=== PATIENT | male | born 1955 | race Caucasian/White ===

== ENCOUNTER → 2018-10-13 10:55 | Outpatient (CLI) | payer BC, SELFPAY ==
[2018-10-13 12:39] LABS: BUN Creatinine Ratio 18.9 (6-22); Blood Urea Nitrogen 17 mg/dL (9-20); Calcium 9.6 mg/dL (8.4-10.2); Carbon Dioxide 27 mmol/L (22-32); Chloride 103 mmol/L (98-107); Estimated Glomerular Filt Rate > 60.0 mL/min (>60); Glucose 99 mg/dL (80-110); HEMOLYSIS < 15 (0-50); Potassium 4.4 mmol/L (3.4-5.1); Sodium 140 mmol/L (137-145)
== END ==
DX: I10 Essential (primary) hypertension (principal)
CPT/HCPCS: 36415; 80048

== ENCOUNTER → 2019-09-13 11:31 | Outpatient (CLI) | payer BC, SELFPAY ==
--- NOTE | 2019-09-13 | DI.RAD.S_ITS ---
PROCEDURE: XR CHEST 2V INDICATIONS: Palpitations TECHNIQUE: 2 views of the chest were acquired. COMPARISON: None. FINDINGS: Surgical changes and devices: None. Lungs and pleura: Lungs are clear. No pleural effusions or pneumothorax. Mediastinum: Mediastinal contours are normal. Heart size is normal. Bones and chest wall: No suspicious bony abnormalities. Soft tissues appear unremarkable. IMPRESSION: No acute disease Dictated by: Quentin Lagos M.D. on 09/13/2019 at 11:59 Approved by: Quentin Lagos M.D. on 09/13/2019 at 12:00
== END ==
PROVIDERS: Referring Provider Student in an Organized Health Care Education/Training Program; Visit Provider Student in an Organized Health Care Education/Training Program
DX: R00.2 Palpitations (principal)
CPT/HCPCS: 71046

== ENCOUNTER → 2019-10-06 10:05 | Outpatient (CLI) | payer BC, SELFPAY ==
[2019-10-06 10:43] LABS: Add Manual Diff / Slide Review NO; Basophils Absolute Auto 100 /uL (0-100); Basophils Percent Auto 0.9 % (0-2); Eosinophils Absolute Auto 200 /uL (0-450); Eosinophils Percent Auto 2.3 % (2-4); Hematocrit 42.1 % (41-53); Hemoglobin 14.8 g/dL (13.5-17.5); Lymphocytes Absolute Auto 1500 /uL (1100-4500); Lymphocytes Percent Auto 20.9 % (25-40); Mean Corpuscular HGB Conc 35.3 % (30-36); Mean Corpuscular Hemoglobin 31.2 PG (26-34); Mean Corpuscular Volume 88.5 fL (80-100); Monocytes Absolute Auto 700 /uL (0-900); Monocytes Percent Auto 9.9 % (3-14); Neutrophils Absolute Auto 4800 /uL (1500-7000); Platelet Count 251 X10^3/uL (150-400); Red Blood Cell Count 4.75 X10^6/uL (4.5-5.9); Red Cell Distribution Width 12.8 % (11.6-14.8); White Blood Cell Count 7.3 X10^3/uL (4.5-11.0)
[2019-10-06 10:54] LABS: Alanine Aminotransferase 43 IU/L (<50); Albumin 4.3 g/dL (3.5-5.0); Albumin Globulin Ratio 1.4 (1.0-2.8); Alkaline Phosphatase 55 U/L (38-126); Aspartate Aminotransferase 34 IU/L (17-59); BUN Creatinine Ratio 18.4 (6-22); Bilirubin Total 0.5 mg/dL (0.2-1.3); Blood Urea Nitrogen 18 mg/dL (9-20); Calcium 10.1 mg/dL (8.4-10.2); Carbon Dioxide 29 mmol/L (22-32); Chloride 102 mmol/L (98-107); Estimated Glomerular Filt Rate > 60.0 mL/min (>60); Glucose 96 mg/dL (80-110); HEMOLYSIS < 15 (0-50); Potassium 4.3 mmol/L (3.4-5.1); Sodium 137 mmol/L (137-145); Total Protein 7.3 g/dL (6.3-8.2)
[2019-10-06 12:52] LABS: Campylobacter Not Detected (Not Detect); Clostridium difficile toxin AB Not Detected (Not Detect); Plesiomonsa shigelloides Not Detected (Not Detect); Salmonella Not Detected (Not Detect)
[2019-10-06 12:53] LABS: Cryptosporidium Not Detected (Not Detect); Cyclospora cayetanensis Not Detected (Not Detect); Entamoeba histolytica Not Detected (Not Detect); Enteroaggregative E.coli Not Detected (Not Detect); Enteropathogenic E.coli Not Detected (Not Detect); Enterotoxigenic E.coli It/st Not Detected (Not Detect); Giardia lamblia Not Detected (Not Detect); Shiga-like toxin-prod E.coli Not Detected (Not Detect); Shigella/Enteroinvasive E.coli Not Detected (Not Detect); Yersinia enterocolitica Not Detected (Not Detect)
[2019-10-06 12:54] LABS: Adenovirus F 40/41 Not Detected (Not Detect); Astrovirus Not Detected (Not Detect); Norovirus GI/GII Not Detected (Not Detect); Rotavirus A Not Detected (Not Detect); Sapovirus Not Detected (Not Detect)
[2019-10-06 12:56] LABS: Vibrio Detected (Not Detect)
[2019-10-06 12:58] LABS: Vibrio cholerae Not Detected (Not Detect)
== END ==
PROVIDERS: Referring Provider Nurse Practitioner; Visit Provider Nurse Practitioner
DX: R11.10 Vomiting, unspecified (principal); R19.7 Diarrhea, unspecified
CPT/HCPCS: 36415; 80053; 85025; 87507

== ENCOUNTER → 2020-02-18 08:16 | Outpatient (CLI) | payer MEDICARE, BC, SELFPAY ==
[2020-02-18 08:59] LABS: BUN Creatinine Ratio 17.2 (6-22); Blood Urea Nitrogen 16 mg/dL (9-20); Calcium 9.6 mg/dL (8.4-10.2); Carbon Dioxide 33 mmol/L (22-32); Chloride 102 mmol/L (98-107); Estimated Glomerular Filt Rate > 60.0 mL/min (>60); Glucose 101 mg/dL (80-110); HEMOLYSIS < 15 (0-50); Potassium 4.3 mmol/L (3.4-5.1); Sodium 137 mmol/L (137-145)
--- NOTE | 2020-02-18 09:15 | DI.CT.S_ITS ---
PROCEDURE: CT ABDOMEN PELVIS W CON INDICATIONS: Right lower quadrant pain TECHNIQUE: After the administration of oral and intravenous contrast, 5 mm thick sections acquired from the diaphragms to the symphysis. 5 mm thick coronal and sagittal reformats were performed. For radiation dose reduction, the following was used: automated exposure control, adjustment of mA and/or kV according to patient size. COMPARISON: None. FINDINGS: Image quality: Excellent. ABDOMEN: Lung bases: Lung bases are clear. Heart size is normal. Solid organs: Liver is normal in size and enhancement. Gallbladder is unremarkable . Biliary system is non-dilated. Pancreas enhances normally. Spleen is normal in size and enhancement. No adrenal nodules. Kidneys are normal in size and enhancement, without hydronephrosis. Peritoneum and bowel: Stomach, small bowel, and colon loops are normal in caliber and wall thickness. No free fluid or air. Normal appendix. The Nodes and vessels: No retroperitoneal or mesenteric adenopathy. Aorta and inferior vena cava are normal in caliber. Miscellaneous: No ventral hernias. PELVIS: Genitourinary: Enlarged prostate with mild diffuse bladder wall thickening. Miscellaneous: Small left inguinal hernia containing fat. No inguinal adenopathy. Bones: No suspicious bony lesions. No vertebral body compression fractures. Diffuse lumbar degenerative change with canal stenosis at L4-L5. IMPRESSION: 1. Enlarged prostate with mild bladder wall thickening. 2. Lumbar degenerative change with canal stenosis at L4-L5. 3. Normal appendix. 4. No evidence of acute abdominal process. Dictated by: Chase Graham M.D. on 02/18/2020 at 10:35 Approved by: Chase Graham M.D. on 02/18/2020 at 10:39
== END ==
PROVIDERS: PCP Student in an Organized Health Care Education/Training Program; Referring Provider Student in an Organized Health Care Education/Training Program; Visit Provider Student in an Organized Health Care Education/Training Program
DX: N40.0 Benign prostatic hyperplasia without lower urinary tract symptoms (principal); M51.36 Other intervertebral disc degeneration, lumbar region; R10.31 Right lower quadrant pain; Z79.899 Other long term (current) drug therapy
CPT/HCPCS: 36415; 74177; 80048; Q9967

== ENCOUNTER → 2020-03-20 08:04 | Outpatient (CLI) | payer MEDICARE, BC, SELFPAY ==
--- NOTE | 2020-03-20 | DI.US.S_ITS ---
PROCEDURE: US ABD AORTA ANEURYSM SCREEN INDICATIONS: SCREEN TECHNIQUE: Real time scanning was performed of the aorta and iliac arteries, with image documentation. COMPARISON: None. FINDINGS: Aorta: Proximal aortic diameter measures 1.8 cm. Mid-aorta measures 1.7 cm. Distal aortic diameter is 1.6 cm. Iliac arteries: Right common iliac artery measures 1.1 cm. Left common iliac artery measures 1.0 cm. IMPRESSION: No evidence of aortoiliac aneurysm. Dictated by: Melissa Fuchs M.D. on 03/20/2020 at 17:10 Approved by: Melissa Fuchs M.D. on 03/20/2020 at 17:11
== END ==
PROVIDERS: PCP Student in an Organized Health Care Education/Training Program; Referring Provider Student in an Organized Health Care Education/Training Program; Visit Provider Student in an Organized Health Care Education/Training Program
DX: Z13.6 Encounter for screening for cardiovascular disorders (principal); F17.210 Nicotine dependence, cigarettes, uncomplicated
CPT/HCPCS: 76706

== ENCOUNTER → 2020-08-20 08:37 | Outpatient (CLI) | payer MEDICARE, BC, SELFPAY ==
--- NOTE | 2020-08-20 | DI.MRI.S_ITS ---
PROCEDURE: MR LUMBAR SPINE WO CON INDICATIONS: Low back pain TECHNIQUE: Noncontrast sagittal T1 spin echo and T2 fast echo, sagittal STIR, axial T1 and T2 fast spin echo through the lumbar spine. In cases with scoliosis, additional coronal T2 fast spin echo may be performed. COMPARISON: [facility], CT, CT ABDOMEN PELVIS W CON, 02/18/2020, 9:26. FINDINGS: Image quality: Excellent. Alignment and Curvature: 5 lumbar type vertebral bodies are present by CT. There is loss of normal lumbar lordosis. There is mild, grade 1 retrolisthesis of L1 on L2, L2 on L3, L3 on L4, and L5 on S1. Mild grade 1 anterolisthesis of L4 on L5. Bone Marrow: Marrow is of normal overall signal. No acute vertebral body compression fractures. There is moderate reactive signal within the endplates adjacent to the L4-L5 and L5-S1 intervertebral discs. Mild reactive signal within the endplates adjacent to the T11-T12, T12-L1, L1-L2, L2-L3, and L3-L4 intervertebral discs. Spinal Cord: Conus medullaris terminates at the T12-L1 disc space level. Visualized cord demonstrates normal signal and size. Paraspinous Soft Tissues: No paravertebral masses. T12-L1: Mild disc height loss and desiccation. Mild diffuse disc bulge. Mild facet and ligamentum flavum hypertrophy. Mild epidural lipomatosis. Mild canal stenosis. Mild bilateral foraminal stenosis. L1-L2: Moderate disc height loss and desiccation. Moderate diffuse disc bulge with superimposed broad-based right posterolateral and far lateral protrusion. Mild facet and ligamentum flavum hypertrophy. Mild epidural lipomatosis. There is moderate to severe canal stenosis. Mild bilateral foraminal stenosis. Right lateral recess stenosis with posterior deviation and compression of the right L2 nerve root. L2-L3: Moderate disc height loss and desiccation. Mild diffuse disc bulge. Mild facet and ligamentum flavum hypertrophy. Mild epidural lipomatosis. Mild canal stenosis. Moderate subarticular foraminal stenosis bilaterally. L3-L4: Mild disc height loss and desiccation. Mild diffuse disc bulge. Mild facet and ligamentum flavum hypertrophy. Mild epidural lipomatosis. Moderate canal stenosis. Mild to moderate right and moderate left subarticular foraminal stenosis. L4-L5: Moderate disc height loss and desiccation. Moderate diffuse disc bulge. Moderate facet and ligamentum flavum hypertrophy. Severe canal stenosis. Moderate subarticular foraminal stenosis bilaterally. L5-S1: Severe disc height loss and desiccation. Mild diffuse disc bulge. Mild facet and ligamentum flavum hypertrophy. Mild canal stenosis. Moderate subarticular foraminal stenosis bilaterally. IMPRESSION: 1. Multilevel degenerative disc and facet disease, as well as ligamentum flavum hypertrophy and epidural lipomatosis. 2. Multilevel canal stenoses, worst at L4-L5, where there is severe canal stenosis. Moderate to severe canal stenosis at L1-L2. 3. Multilevel foraminal stenoses, worst at L2-L3, L3-L4, L4-L5, and L5-S1, where there are moderate foraminal stenoses as described above. 4. Right lateral recess stenosis at L1-L2 associated with right L2 nerve root compression. Recommend correlation with clinical symptoms to ascertain relevance of this finding. Dictated by: Melissa Fuchs M.D. on 08/20/2020 at 10:17 Approved by: Melissa Fuchs M.D. on 08/20/2020 at 10:22
== END ==
PROVIDERS: PCP Student in an Organized Health Care Education/Training Program; Referring Provider Orthopaedic Surgery; Visit Provider Orthopaedic Surgery
DX: M48.062 Spinal stenosis, lumbar region with neurogenic claudication (principal); M48.07 Spinal stenosis, lumbosacral region; M43.16 Spondylolisthesis, lumbar region; M51.26 Other intervertebral disc displacement, lumbar region; M51.36 Other intervertebral disc degeneration, lumbar region; M51.37 Other intervertebral disc degeneration, lumbosacral region; E88.2 Lipomatosis, not elsewhere classified
CPT/HCPCS: 72148

== ENCOUNTER 2021-03-18 09:00 | Outpatient (RCR) | payer MEDICARE, BC, SELFPAY ==
--- NOTE | 2021-02-04 15:29 | PT.OIE ---
Current Diagnoses Foot drop, right foot (02/04/21) Spondylolisthesis, lumbar region (02/04/21) Other spondylosis with radiculopathy, lumbar region (02/04/21) Spinal stenosis, lumbar region with neurogenic claudication (02/04/21) Other intervertebral disc displacement, lumbar region (02/04/21) Radiculopathy, lumbar region (02/04/21) Difficulty in walking, not elsewhere classified (02/04/21) Other specified postprocedural states (02/04/21) Visit Care Team Role Provider Type Summer Bloom MD Family Provider Physician Primary Care Provider Specialty: Family Practice Address: [address] [place] [address], [facility] [place], [address] Email: [email or web address] BRIGHT Payne Attending Provider Non-Staff Referring Provider Specialty: Medical Address: [address] [place] [address] [address], [place], [place], [facility] Email: Physical Therapy Initial Evaluation PT-OP-A Visit Information Start: 02/03/21 15:37 Freq: Status: Active Protocol: Document 02/04/21 09:45 AW (Rec: 02/04/21 10:14 AW [email or web address]) Out-Patient Physical Therapy Visit Information Visit Information Visit Type Initial Evaluation Visit Start Time 09:00 Visit Stop Time 09:45 Total Visit Minutes 45 Visit Number 1 Number of WET PROCESS MILLER HEAD Visits 0 Evaluation Information Evaluation Date 02/04/21 PT-OP-B Current Condition Start: 02/03/21 15:37 Freq: Status: Active Protocol: Document 02/04/21 09:45 AW (Rec: 02/03/21 15:44 AW [email or web address]) Current Condition History of Current Condition Onset Date October 2017 Current Complaints back pain s/p back surgery; chronic right foot drop History of Current Condition Pt has a lengthy history of orthopedic injuries. By his own report, he has always played hard participating in snow and water skiing, multiple sports. He has had right rotator cuff tear, right tibia/fibula fractures and nerve damage at age 30 resulting in foot drop, right osteotomy. MRI shows multiple chronic healed fractures of unknown age. In 2018, pt spent a long day painting a ceiling , stepped off a ladder and noticed numbness in his left leg. Pain evolved into burning sensation down both legs in sciatic distribution. He was treated with PT and had a few injections with minimal relief . He consulted a neurosurgeon at [facility] in fall 2018, had PT again and another injection (relief for only two days). He has also tried accupuncure and chiropractic. He used a self-guided exercise program from his insurance ([employer]) very faithfully for nearly a year. Ultimately, he elected surgery (L1-2 and L4-5 laminectomy). Since surgery Since surgery, sciatic nerve pain BLE is improved. He does note some residual left hip burning pain but nothing down the leg. He reports LBP (R more affected than left). Ice and ibuprofen are helpful. Pt historically slept on his stomach but turned into a back and side sleeper since his injury. He reports muscle spasm between shoulder blades and in hamstrings (left more) which interrupt his sleep. Prior Treatments and Tests 08/20/20 L/S MRI - 1. Multilevel degenerative disc and facet disease, as well as ligamentum flavum hypertrophy and epidural lipomatosis. 2. Multilevel canal stenoses, worst at L4-L5, where there is severe canal stenosis. Moderate to severe canal stenosis at L1-L2. 3. Multilevel foraminal stenoses, worst at L2-L3, L3- L4, L4-L5, and L5-S1, where there are moderate foraminal stenoses as described above. 4. Right lateral recess stenosis at L1-L2 associated with right L2 nerve root compression. Recommend correlation with clinical symptoms to ascertain relevance of this finding. 12/12/20 - L1-2 L4-5 decompression Treatment Goals Patient/Caregiver Goals Pt would like to return to skiing in May. He would like to be able to bend over/ turn to complete toilet hygiene with right hand. Current Functional Impairments (Reported) Functional Limitations- ADL's Difficulty turning to right side to complete toilet hygiene. Functional Limitations- Mobility/Gait Right foot drop (chronic). Limited standing tolerance. Functional Limitations- Work/School Difficulty completing tasks at home due to post-op restrictions which are now lifted. Functional Limitations- Recreation/ Pt did ski last year but is Hobbies hesitant about this season. He hopes to return to skiing in a few months. PT-OP-C Subjective Start: 02/03/21 15:37 Freq: Status: Active Protocol: Document 02/04/21 09:45 AW (Rec: 02/04/21 10:14 AW [email or web address]) OP-PT Subjective Patient Comments Patient Comments I know I've lost some strength since I couldn't do as much as I wanted to do after surgery. Patient Questionnaires Lower Extremity Functional Scale LEFS Score 44 LEFS Impairment 40 to 59% Impaired (Score 32- 47) Oswestry Low Back Index Oswestry Score 26 Oswestry Impairment 20 to 39% Impaired (Score 20- 39) OP-PT Pain Assessment Pain Assessment Grid Paper Pain Assessment Grid Completed Yes: scanned to EMR Home Pain Medication Use Pain Medications Used Yes Home Pain Medication Frequency Ibuprofen daily which pt reports is more helpful than Tylenol. PT-OP-D Balance Start: 02/03/21 15:37 Freq: Status: Active Protocol: Document 02/04/21 09:45 AW (Rec: 02/04/21 11:09 AW [email or web address]) Balance Tests Single Limb Standing Single Limb- Right 10 seconds unsteady, reaching for support Single Limb- Left 25 seconds steady PT-OP-E Functional Tests Start: 02/03/21 15:37 Freq: Status: Active Protocol: Document 02/04/21 09:45 AW (Rec: 02/04/21 11:10 AW [email or web address]) Functional Tests Single Leg Squat Test Comment LLE able to stand steadily from 18 mat; RLE unsteady from 22 mat PT-OP-H Neuro Start: 02/03/21 15:37 Freq: Status: Active Protocol: Document 02/04/21 09:45 AW (Rec: 02/04/21 12:49 AW [email or web address]) Sensation Evaluation Gross Sensation Gross Sensation Right LE Impaired Sensation Description Numbness Comments Summary Comments Pt reports chronic dull sensation right lateral and anterior shank and dorsal foot . Deep Tendon Reflex & Clonus Assessment Deep Tendon Reflex Bilateral Achilles Deep Tendon Reflex 1+ Diminished Bilateral Patellar Deep Tendon Reflex 1+ Diminished PT-OP-J Posture/Palpation/Skin Start: 02/03/21 15:37 Freq: Status: Active Protocol: Document 02/04/21 09:45 AW (Rec: 02/04/21 12:49 AW [email or web address]) Posture Evaluation Position Standing Head/C-Spine Posture Forward Head L-Spine Posture Flattened Weight Distribution Weight Shifted Left Palpation Assessment Location BLE Palpation Findings Soft Tissue Tightness Palpation Details Reduced HS length in supine 90 /90 - lacking ~30 degrees BLE. Internal rotation is severely limited bilaterally in supine . External rotation moderately limited. lumbar paraspinals Palpation Details Increased tone right lumbar paraspinals at levels of incisions. Skin Assessment Incisional Assessment Incision Appearance/Comments Healing incisions along L1-2 and L4-5. Slightly reduced scar mobility PT-OP-K Range of Motion Start: 02/03/21 15:37 Freq: Status: Active Protocol: Document 02/04/21 09:45 AW (Rec: 02/05/21 10:06 AW [email or web address]) Lumbar Spine Range of Motion Lumbar Spine Active Degrees Testing Position Standing Flexion 65 Extension 16 ROM Limitations Pain Comments Painful right rotation especially in sitting. Pt is able to laterally flex with fingertips to knee joint line bilaterally without c/o pain. Hip Goniometric Range of Motion Hip ROM Limitations Hip ROM Limitations Soft Tissue Tightness Comments Internal rotation in B hips is severely limited; external rotation moderately limited. In supine, remaining hip AROM and PROM WNL Knee Goniometric Range of Motion Knee ROM Limitations Knee ROM Limitations Soft Tissue Tightness Comments In supine 90/90, pt lacks 30 degrees knee extension bilaterally. Ankle and Foot Goniometric Range of Motion Ankle and Foot bilat Ankle/Foot ROM WFL No Comments Right ankle DF AROM limited ( less than neutral). Ankle and Foot ROM Limitations ROM Limitations Muscle Weakness Comments Pt reports nerve injury secondary to fracture >30 years ago which resulted in functional right foot drop. PT-OP-M Strength Start: 02/03/21 15:37 Freq: Status: Active Protocol: Document 02/04/21 09:45 AW (Rec: 02/05/21 10:06 AW [email or web address]) Hip Strength Hip Manual Muscle Testing bilat Flexion (L2) 4+ Good+ Extension (S1) 4 Good Abduction 4+ Good+ Knee Strength Knee Manual Muscle Testing bilat Flexion (S2) 5 Normal Extension (L3) 5 Normal Ankle/Foot Strength Ankle and Foot Manual Muscle Testing Right Dorsiflexion (L4) 3- Fair- Plantarflexion (S1) 5 Normal Left Dorsiflexion (L4) 5 Normal Plantarflexion (S1) 5 Normal Comments Pt performs 20 single leg heel raises right and left without evidence of imbalance. Toe Strength Toe Manual Muscle Testing Right Great Toe Flexion 4 Good Extension 4 Good Comments Left great toe 5/5 PT-OP-Q Treatments Start: 02/03/21 15:37 Freq: Status: Active Protocol: Document 02/04/21 09:45 AW (Rec: 02/05/21 10:06 AW [email or web address]) Therapeutic Exercises Supine Exercises piriformis stretch Supine Exercise Name piriformis stretch Side bilateral Comments opp foot planted HS stretch with strap Supine Exercise Name HS stretch with strap Side bilateral Equipment Used nylon strap Reps/Minutes 30 SH x 4 each side PT-OP-T Assessment and Plan Start: 02/03/21 15:37 Freq: Status: Active Protocol: Document 02/04/21 09:45 AW (Rec: 02/05/21 10:28 AW [email or web address]) Physical Therapy Assessment Rehab Potential Rehabilitation Potential Excellent Evaluation Complexity Number of Personal Factors/Comorbidities 1-2 Number of Body Systems Impaired 3 Clinical Presentation at Evaluation Evolving Impairments Impairments Balance,Functional Mobility, Gait,Pain,Posture,ROM, Sensation,Soft Tissue Mobility ,Strength Goals Four Impairment balance Short Term Goal (STG) Pt will rise on single leg ( right and left) from 19 high surface without evidence of imbalance. STG Duration 03/04/21 Jail Goal (LTG) Pt will rise on single leg ( right and left) from 18 high surface five times without evidence of imbalance as a measure of improved single leg strength and stability. LTG Duration 04/10/21 Three Impairment MANUEL score 26 Jail Goal (LTG) Pt will improve ODS score from 26 to 15 or less as a measure of improved daily function. LTG Duration 04/10/21 Two Impairment impaired sleep Jail Goal (LTG) Pt will sleep at least 7 uninterrupted hours for 5/7 nights to promote pain management. LTG Duration 04/10/21 One Impairment lacks appropriate HEP Short Term Goal (STG) Pt will be instructed in HEP to address soft tissue restrictions and lumbar mobility. STG Duration 03/04/21 Jail Goal (LTG) Pt will be independent with HEP to address BLE tissue length, strength, and balance for improved ability to self- manage pain LTG Duration 04/10/21 Assessment Summary Assessment Steffen is an active 65 yo man with history of multiple orthopedic injuries and chronic right foot drop related to a lower leg fracture >30 years ago. He recently elected L1-4 and L4-5 laminectomy to address bilteral lower extremity and low back pain. He has had good outcomes with regard to leg/ nerve pain. He presents to outpatient physical therapy with general deconditioning secondary to activity restrictions following surgery , soft tissue tightness affecting hip mobility, and impaired lower extremity stability. He is expected to benefit from skilled physical therapy to address these impairments for return to regular activity to include skiing and fishing. Physical Therapy Plan Frequency and Duration Frequency of Treatment 1-2x/week Duration of Treatment 2 months Plan of Care Start Date 02/04/21 Plan of Care End Date 04/10/21 Therapeutic Interventions Therapeutic Interventions Aquatic Therapy,Balance Training,Gait Training,Home Exercise Program,Manual Therapy,Neuromuscular Re- education,Patient/Caregiver Education,Self-Care/Home Management,Sensory Integration ,Soft Tissue Mobilization, Therapeutic Activities, Therapeutic Exercises Modalities Cold Pack/Ice Massage,Hot Packs Next Visit Focus/Plan Next Note Type Treatment Note Next Visit Plan continue hip mobility exercises, initiate standing hip strength, STM's as tolerated
--- NOTE | 2021-02-04 15:30 | PT.OPPOC ---
Physical, Occupational & Speech Therapy At [facility] Current Diagnoses Foot drop, right foot (02/04/21) Spondylolisthesis, lumbar region (02/04/21) Other spondylosis with radiculopathy, lumbar region (02/04/21) Spinal stenosis, lumbar region with neurogenic claudication (02/04/21) Other intervertebral disc displacement, lumbar region (02/04/21) Radiculopathy, lumbar region (02/04/21) Difficulty in walking, not elsewhere classified (02/04/21) Other specified postprocedural states (02/04/21) Visit Care Team Role Provider Type Summer Bloom MD Family Provider Physician Primary Care Provider Specialty: Family Practice Address: [address] [place] [address], [facility] Email: [email or web address] BRIGHT Payne Attending Provider Non-Staff Referring Provider Specialty: Medical Address: [address] [place] [address] [address] Floor, [place], [place], [facility] Email: Plan Of Care PT-OP-T Assessment and Plan Start: 02/03/21 15:37 Freq: Status: Active Protocol: Document 02/04/21 09:45 AW (Rec: 02/05/21 10:28 AW [email or web address]) Physical Therapy Assessment Rehab Potential Rehabilitation Potential Excellent Evaluation Complexity Number of Personal Factors/Comorbidities 1-2 Number of Body Systems Impaired 3 Clinical Presentation at Evaluation Evolving Impairments Impairments Balance,Functional Mobility, Gait,Pain,Posture,ROM, Sensation,Soft Tissue Mobility ,Strength Goals Four Impairment balance Short Term Goal (STG) Pt will rise on single leg ( right and left) from 19 high surface without evidence of imbalance. STG Duration 03/04/21 Group Home Goal (LTG) Pt will rise on single leg ( right and left) from 18 high surface five times without evidence of imbalance as a measure of improved single leg strength and stability. LTG Duration 04/10/21 Three Impairment MANUEL score 26 Group Home Goal (LTG) Pt will improve ODS score from 26 to 15 or less as a measure of improved daily function. LTG Duration 04/10/21 Two Impairment impaired sleep Group Home Goal (LTG) Pt will sleep at least 7 uninterrupted hours for 5/7 nights to promote pain management. LTG Duration 04/10/21 One Impairment lacks appropriate HEP Short Term Goal (STG) Pt will be instructed in HEP to address soft tissue restrictions and lumbar mobility. STG Duration 03/04/21 Group Home Goal (LTG) Pt will be independent with HEP to address BLE tissue length, strength, and balance for improved ability to self- manage pain LTG Duration 04/10/21 Assessment Summary Assessment Steffen is an active 65 yo man with history of multiple orthopedic injuries and chronic right foot drop related to a lower leg fracture >30 years ago. He recently elected L1-4 and L4-5 laminectomy to address bilteral lower extremity and low back pain. He has had good outcomes with regard to leg/ nerve pain. He presents to outpatient physical therapy with general deconditioning secondary to activity restrictions following surgery , soft tissue tightness affecting hip mobility, and impaired lower extremity stability. He is expected to benefit from skilled physical therapy to address these impairments for return to regular activity to include skiing and fishing. Physical Therapy Plan Frequency and Duration Frequency of Treatment 1-2x/week Duration of Treatment 2 months Plan of Care Start Date 02/04/21 Plan of Care End Date 04/10/21 Therapeutic Interventions Therapeutic Interventions Aquatic Therapy,Balance Training,Gait Training,Home Exercise Program,Manual Therapy,Neuromuscular Re- education,Patient/Caregiver Education,Self-Care/Home Management,Sensory Integration ,Soft Tissue Mobilization, Therapeutic Activities, Therapeutic Exercises Modalities Cold Pack/Ice Massage,Hot Packs Next Visit Focus/Plan Next Note Type Treatment Note Next Visit Plan continue hip mobility exercises, initiate standing hip strength, STM's as tolerated Plan of Care Dates Plan of Care Start Date 02/04/21 Plan of Care End Date 04/10/21 Electronically Signed by: Suad Hilario, PT 02/05/21 [id number] Please Sign and Return: I have reviewed this Plan of Care and certify that the skilled therapy services above are required to meet the patient?s needs. Physician Signature Date Printed Name and Credentials Clinical Instructor Signature Printed Name and Credentials
--- NOTE | 2021-02-09 17:03 | PT.OTN ---
Current Diagnoses Foot drop, right foot (02/09/21) Spondylolisthesis, lumbar region (02/09/21) Other spondylosis with radiculopathy, lumbar region (02/09/21) Spinal stenosis, lumbar region with neurogenic claudication (02/09/21) Other intervertebral disc displacement, lumbar region (02/09/21) Radiculopathy, lumbar region (02/09/21) Difficulty in walking, not elsewhere classified (02/09/21) Other specified postprocedural states (02/09/21) Physical Therapy Treatment Note PT-OP-A Visit Information Start: 02/03/21 15:37 Freq: Status: Active Protocol: Document 02/09/21 16:53 SAK (Rec: 02/09/21 17:02 [facility] [id number]) Out-Patient Physical Therapy Visit Information Visit Information Visit Type Treatment Note Visit Start Time 11:00 Visit Stop Time 11:45 Total Visit Minutes 45 Visit Number 2 Number of STOCK FEEDER Visits 0 PT-OP-B Current Condition Start: 02/03/21 15:37 Freq: Status: Active Protocol: Document 02/09/21 16:53 SAK (Rec: 02/09/21 17:02 [facility] [id number]) Current Condition History of Current Condition Onset Date October 2017 Current Complaints back pain s/p back surgery; chronic right foot drop History of Current Condition Pt has a lengthy history of orthopedic injuries. By his own report, he has always played hard participating in snow and water skiing, multiple sports. He has had right rotator cuff tear, right tibia/fibula fractures and nerve damage at age 30 resulting in foot drop, right osteotomy. MRI shows multiple chronic healed fractures of unknown age. In 2018, pt spent a long day painting a ceiling , stepped off a ladder and noticed numbness in his left leg. Pain evolved into burning sensation down both legs in sciatic distribution. He was treated with PT and had a few injections with minimal relief . He consulted a neurosurgeon at [facility] in fall 2018, had PT again and another injection (relief for only two days). He has also tried accupuncure and chiropractic. He used a self-guided exercise program from his insurance ([employer] from [facility]) very faithfully for nearly a year. Ultimately, he elected surgery (L1-2 and L4-5 laminectomy). Since surgery Since surgery, sciatic nerve pain BLE is improved. He does note some residual left hip burning pain but nothing down the leg. He reports LBP (R more affected than left). Ice and ibuprofen are helpful. Pt historically slept on his stomach but turned into a back and side sleeper since his injury. He reports muscle spasm between shoulder blades and in hamstrings (left more) which interrupt his sleep. Prior Treatments and Tests 08/20/20 L/S MRI - 1. Multilevel degenerative disc and facet disease, as well as ligamentum flavum hypertrophy and epidural lipomatosis. 2. Multilevel canal stenoses, worst at L4-L5, where there is severe canal stenosis. Moderate to severe canal stenosis at L1-L2. 3. Multilevel foraminal stenoses, worst at L2-L3, L3- L4, L4-L5, and L5-S1, where there are moderate foraminal stenoses as described above. 4. Right lateral recess stenosis at L1-L2 associated with right L2 nerve root compression. Recommend correlation with clinical symptoms to ascertain relevance of this finding. 12/12/20 - L1-2 L4-5 decompression Treatment Goals Patient/Caregiver Goals Patient hoping aquatic therapy can help him recover and return to many of his prior activities. Reports besides PT exercises his doctor gave him a list of exercises to do at home including 1 min regular plank which is very hard for him to do. PT-OP-C Subjective Start: 02/03/21 15:37 Freq: Status: Active Protocol: Document 02/09/21 16:53 SAK (Rec: 02/09/21 17:03 SAK [id number]) OP-PT Subjective Patient Comments Patient Comments Hopeful that aquatic therapy can be helpful in his recovery to help him return to his prior activities. PT-OP-D Balance Start: 02/03/21 15:37 Freq: Status: Active Protocol: Document 02/04/21 09:45 AW (Rec: 02/04/21 11:09 AW [email or web address]) Balance Tests Single Limb Standing Single Limb- Right 10 seconds unsteady, reaching for support Single Limb- Left 25 seconds steady PT-OP-E Functional Tests Start: 02/03/21 15:37 Freq: Status: Active Protocol: Document 02/04/21 09:45 AW (Rec: 02/04/21 11:10 AW [email or web address]) Functional Tests Single Leg Squat Test Comment LLE able to stand steadily from 18 mat; RLE unsteady from 22 mat PT-OP-H Neuro Start: 02/03/21 15:37 Freq: Status: Active Protocol: Document 02/04/21 09:45 AW (Rec: 02/04/21 12:49 AW [email or web address]) Sensation Evaluation Gross Sensation Gross Sensation Right LE Impaired Sensation Description Numbness Comments Summary Comments Pt reports chronic dull sensation right lateral and anterior shank and dorsal foot . Deep Tendon Reflex & Clonus Assessment Deep Tendon Reflex Bilateral Achilles Deep Tendon Reflex 1+ Diminished Bilateral Patellar Deep Tendon Reflex 1+ Diminished PT-OP-J Posture/Palpation/Skin Start: 02/03/21 15:37 Freq: Status: Active Protocol: Document 02/04/21 09:45 AW (Rec: 02/04/21 12:49 AW [email or web address]) Posture Evaluation Position Standing Head/C-Spine Posture Forward Head L-Spine Posture Flattened Weight Distribution Weight Shifted Left Palpation Assessment Location BLE Palpation Findings Soft Tissue Tightness Palpation Details Reduced HS length in supine 90 /90 - lacking ~30 degrees BLE. Internal rotation is severely limited bilaterally in supine . External rotation moderately limited. lumbar paraspinals Palpation Details Increased tone right lumbar paraspinals at levels of incisions. Skin Assessment Incisional Assessment Incision Appearance/Comments Healing incisions along L1-2 and L4-5. Slightly reduced scar mobility PT-OP-K Range of Motion Start: 02/03/21 15:37 Freq: Status: Active Protocol: Document 02/04/21 09:45 AW (Rec: 02/05/21 10:06 AW [email or web address]) Lumbar Spine Range of Motion Lumbar Spine Active Degrees Testing Position Standing Flexion 65 Extension 16 ROM Limitations Pain Comments Painful right rotation especially in sitting. Pt is able to laterally flex with fingertips to knee joint line bilaterally without c/o pain. Hip Goniometric Range of Motion Hip ROM Limitations Hip ROM Limitations Soft Tissue Tightness Comments Internal rotation in B hips is severely limited; external rotation moderately limited. In supine, remaining hip AROM and PROM WNL Knee Goniometric Range of Motion Knee ROM Limitations Knee ROM Limitations Soft Tissue Tightness Comments In supine 90/90, pt lacks 30 degrees knee extension bilaterally. Ankle and Foot Goniometric Range of Motion Ankle and Foot bilat Ankle/Foot ROM WFL No Comments Right ankle DF AROM limited ( less than neutral). Ankle and Foot ROM Limitations ROM Limitations Muscle Weakness Comments Pt reports nerve injury secondary to fracture >30 years ago which resulted in functional right foot drop. PT-OP-M Strength Start: 02/03/21 15:37 Freq: Status: Active Protocol: Document 02/04/21 09:45 AW (Rec: 02/05/21 10:06 AW [email or web address]) Hip Strength Hip Manual Muscle Testing bilat Flexion (L2) 4+ Good+ Extension (S1) 4 Good Abduction 4+ Good+ Knee Strength Knee Manual Muscle Testing bilat Flexion (S2) 5 Normal Extension (L3) 5 Normal Ankle/Foot Strength Ankle and Foot Manual Muscle Testing Right Dorsiflexion (L4) 3- Fair- Plantarflexion (S1) 5 Normal Left Dorsiflexion (L4) 5 Normal Plantarflexion (S1) 5 Normal Comments Pt performs 20 single leg heel raises right and left without evidence of imbalance. Toe Strength Toe Manual Muscle Testing Right Great Toe Flexion 4 Good Extension 4 Good Comments Left great toe 5/5 PT-OP-Q Treatments Start: 02/03/21 15:37 Freq: Status: Active Protocol: Document 02/04/21 09:45 AW (Rec: 02/05/21 10:06 AW [email or web address]) Therapeutic Exercises Supine Exercises piriformis stretch Supine Exercise Name piriformis stretch Side bilateral Comments opp foot planted HS stretch with strap Supine Exercise Name HS stretch with strap Side bilateral Equipment Used nylon strap Reps/Minutes 30 SH x 4 each side PT-OP-S Aquatic Treatment Start: 02/03/21 15:37 Freq: Status: Active Protocol: Document 02/09/21 16:53 [facility] (Rec: 02/09/21 17:02 [facility] [id number]) Aquatics Treatment Pool Entry/Exit Pool Entry/Exit Method Stairs Assistance Independent Water Walking walk with drag Water Level Chest Level Level of Assistance Verbal Cues Comments UE's at side, palms forward, neutral alignment forward, bck, side, june Water Level Chest Level Level of Assistance Verbal Cues Comments cues for core stab, neutral alignment Lower Extremity Stretches HS, ITB Details back to pool wall Body Position Standing Equipment Small Noodle Reps/Duration Hydrofit Upper Extremity Exercises hor ab/ad, flex/ext Details richy and unil Body Position Standing Water Level Chest Level Reps/Duration 10x ea Comments with emphasis on core stab Spinal Exercises deep water DLS Details Iron cross, AP, march, dbl leg lift, pendulum, UE pull down richy and single Body Position Standing Water Level [place] Equipment waist float, medium barbells Reps/Duration 10 min [place] Activities [place] Activities Bicycle,Bicycle Backwards, Running Equipment large noodle first, then waist belt Comments large noodle in hands for backward PT-OP-T Assessment and Plan Start: 02/03/21 15:37 Freq: Status: Active Protocol: Document 02/09/21 16:53 [facility] (Rec: 02/09/21 17:02 [facility] [id number]) Physical Therapy Assessment Rehab Potential Rehabilitation Potential Excellent Impairments Impairments Balance,Functional Mobility, Gait,Pain,Posture,ROM, Sensation,Soft Tissue Mobility ,Strength Goals Four Impairment balance Short Term Goal (STG) Pt will rise on single leg ( right and left) from 19 high surface without evidence of imbalance. STG Duration 03/04/21 Retention Representative Goal (LTG) Pt will rise on single leg ( right and left) from 18 high surface five times without evidence of imbalance as a measure of improved single leg strength and stability. LTG Duration 04/10/21 Three Impairment MANUEL score 26 Long-Term Goal (LTG) Pt will improve ODS score from 26 to 15 or less as a measure of improved daily function. LTG Duration 04/10/21 Two Impairment impaired sleep Retention Representative Goal (LTG) Pt will sleep at least 7 uninterrupted hours for 5/7 nights to promote pain management. LTG Duration 04/10/21 One Impairment lacks appropriate HEP Short Term Goal (STG) Pt will be instructed in HEP to address soft tissue restrictions and lumbar mobility. STG Duration 03/04/21 Retention Representative Goal (LTG) Pt will be independent with HEP to address BLE tissue length, strength, and balance for improved ability to self- manage pain LTG Duration 04/10/21 Assessment Summary Assessment Patient demonstrated good understanding of aquatic exercises with cues for neutral alignment and core stabilization. Feel flotation belt best option for deep water activities. Denied increase in pain with ther ex. Feel aquatic PT will be very beneficial for this patient.
--- NOTE | 2021-02-11 11:14 | PT.OTN ---
Current Diagnoses Foot drop, right foot (02/11/21) Spondylolisthesis, lumbar region (02/11/21) Other spondylosis with radiculopathy, lumbar region (02/11/21) Spinal stenosis, lumbar region with neurogenic claudication (02/11/21) Other intervertebral disc displacement, lumbar region (02/11/21) Radiculopathy, lumbar region (02/11/21) Difficulty in walking, not elsewhere classified (02/11/21) Other specified postprocedural states (02/11/21) Physical Therapy Treatment Note PT-OP-A Visit Information Start: 02/03/21 15:37 Freq: Status: Active Protocol: Document 02/11/21 09:45 AW (Rec: 02/11/21 09:50 AW [id number]) Out-Patient Physical Therapy Visit Information Visit Information Visit Type Treatment Note Visit Start Time 09:00 Visit Stop Time 09:45 Total Visit Minutes 45 Visit Number 3 Number of REGULATORY TECHNICIAN Visits 0 PT-OP-B Current Condition Start: 02/03/21 15:37 Freq: Status: Active Protocol: Document 02/09/21 16:53 SAK (Rec: 02/09/21 17:02 SAK [id number]) Current Condition History of Current Condition Onset Date October 2017 Current Complaints back pain s/p back surgery; chronic right foot drop History of Current Condition Pt has a lengthy history of orthopedic injuries. By his own report, he has always played hard participating in snow and water skiing, multiple sports. He has had right rotator cuff tear, right tibia/fibula fractures and nerve damage at age 30 resulting in foot drop, right osteotomy. MRI shows multiple chronic healed fractures of unknown age. In 2018, pt spent a long day painting a ceiling , stepped off a ladder and noticed numbness in his left leg. Pain evolved into burning sensation down both legs in sciatic distribution. He was treated with PT and had a few injections with minimal relief . He consulted a neurosurgeon at [facility] in fall 2018, had PT again and another injection (relief for only two days). He has also tried accupuncure and chiropractic. He used a self-guided exercise program from his insurance ([employer] from [facility]) very faithfully for nearly a year. Ultimately, he elected surgery (L1-2 and L4-5 laminectomy). Since surgery Since surgery, sciatic nerve pain BLE is improved. He does note some residual left hip burning pain but nothing down the leg. He reports LBP (R more affected than left). Ice and ibuprofen are helpful. Pt historically slept on his stomach but turned into a back and side sleeper since his injury. He reports muscle spasm between shoulder blades and in hamstrings (left more) which interrupt his sleep. Prior Treatments and Tests 08/20/20 L/S MRI - 1. Multilevel degenerative disc and facet disease, as well as ligamentum flavum hypertrophy and epidural lipomatosis. 2. Multilevel canal stenoses, worst at L4-L5, where there is severe canal stenosis. Moderate to severe canal stenosis at L1-L2. 3. Multilevel foraminal stenoses, worst at L2-L3, L3- L4, L4-L5, and L5-S1, where there are moderate foraminal stenoses as described above. 4. Right lateral recess stenosis at L1-L2 associated with right L2 nerve root compression. Recommend correlation with clinical symptoms to ascertain relevance of this finding. 12/12/20 - L1-2 L4-5 decompression Treatment Goals Patient/Caregiver Goals Patient hoping aquatic therapy can help him recover and return to many of his prior activities. Reports besides PT exercises his doctor gave him a list of exercises to do at home including 1 min regular plank which is very hard for him to do. PT-OP-C Subjective Start: 02/03/21 15:37 Freq: Status: Active Protocol: Document 02/11/21 09:45 AW (Rec: 02/11/21 09:50 AW [id number]) OP-PT Subjective Patient Comments Patient Comments I have some questions about the exercises I got from the doctor. PT-OP-D Balance Start: 02/03/21 15:37 Freq: Status: Active Protocol: Document 02/04/21 09:45 AW (Rec: 02/04/21 11:09 AW [email or web address]) Balance Tests Single Limb Standing Single Limb- Right 10 seconds unsteady, reaching for support Single Limb- Left 25 seconds steady PT-OP-E Functional Tests Start: 02/03/21 15:37 Freq: Status: Active Protocol: Document 02/04/21 09:45 AW (Rec: 02/04/21 11:10 AW [email or web address]) Functional Tests Single Leg Squat Test Comment LLE able to stand steadily from 18 mat; RLE unsteady from 22 mat PT-OP-H Neuro Start: 02/03/21 15:37 Freq: Status: Active Protocol: Document 02/04/21 09:45 AW (Rec: 02/04/21 12:49 AW [email or web address]) Sensation Evaluation Gross Sensation Gross Sensation Right LE Impaired Sensation Description Numbness Comments Summary Comments Pt reports chronic dull sensation right lateral and anterior shank and dorsal foot . Deep Tendon Reflex & Clonus Assessment Deep Tendon Reflex Bilateral Achilles Deep Tendon Reflex 1+ Diminished Bilateral Patellar Deep Tendon Reflex 1+ Diminished PT-OP-J Posture/Palpation/Skin Start: 02/03/21 15:37 Freq: Status: Active Protocol: Document 02/04/21 09:45 AW (Rec: 02/04/21 12:49 AW [email or web address]) Posture Evaluation Position Standing Head/C-Spine Posture Forward Head L-Spine Posture Flattened Weight Distribution Weight Shifted Left Palpation Assessment Location BLE Palpation Findings Soft Tissue Tightness Palpation Details Reduced HS length in supine 90 /90 - lacking ~30 degrees BLE. Internal rotation is severely limited bilaterally in supine . External rotation moderately limited. lumbar paraspinals Palpation Details Increased tone right lumbar paraspinals at levels of incisions. Skin Assessment Incisional Assessment Incision Appearance/Comments Healing incisions along L1-2 and L4-5. Slightly reduced scar mobility PT-OP-K Range of Motion Start: 02/03/21 15:37 Freq: Status: Active Protocol: Document 02/04/21 09:45 AW (Rec: 02/05/21 10:06 AW [email or web address]) Lumbar Spine Range of Motion Lumbar Spine Active Degrees Testing Position Standing Flexion 65 Extension 16 ROM Limitations Pain Comments Painful right rotation especially in sitting. Pt is able to laterally flex with fingertips to knee joint line bilaterally without c/o pain. Hip Goniometric Range of Motion Hip ROM Limitations Hip ROM Limitations Soft Tissue Tightness Comments Internal rotation in B hips is severely limited; external rotation moderately limited. In supine, remaining hip AROM and PROM WNL Knee Goniometric Range of Motion Knee ROM Limitations Knee ROM Limitations Soft Tissue Tightness Comments In supine 90/90, pt lacks 30 degrees knee extension bilaterally. Ankle and Foot Goniometric Range of Motion Ankle and Foot bilat Ankle/Foot ROM WFL No Comments Right ankle DF AROM limited ( less than neutral). Ankle and Foot ROM Limitations ROM Limitations Muscle Weakness Comments Pt reports nerve injury secondary to fracture >30 years ago which resulted in functional right foot drop. PT-OP-M Strength Start: 02/03/21 15:37 Freq: Status: Active Protocol: Document 02/04/21 09:45 AW (Rec: 02/05/21 10:06 AW [email or web address]) Hip Strength Hip Manual Muscle Testing bilat Flexion (L2) 4+ Good+ Extension (S1) 4 Good Abduction 4+ Good+ Knee Strength Knee Manual Muscle Testing bilat Flexion (S2) 5 Normal Extension (L3) 5 Normal Ankle/Foot Strength Ankle and Foot Manual Muscle Testing Right Dorsiflexion (L4) 3- Fair- Plantarflexion (S1) 5 Normal Left Dorsiflexion (L4) 5 Normal Plantarflexion (S1) 5 Normal Comments Pt performs 20 single leg heel raises right and left without evidence of imbalance. Toe Strength Toe Manual Muscle Testing Right Great Toe Flexion 4 Good Extension 4 Good Comments Left great toe 5/5 PT-OP-Q Treatments Start: 02/03/21 15:37 Freq: Status: Active Protocol: Document 02/11/21 09:45 AW (Rec: 02/11/21 09:50 AW [id number]) Cardio Equipment Elliptical Duration (Minutes) 5 Resistance 5 Other able to carry on conversation Therapeutic Exercises Supine Exercises TrA Supine Exercise Name TrA Comments BKFO, single leg march, leg extension hip flexor stretch Supine Exercise Name hip flexor stretch Side bilateral Reps/Minutes 1 min hold x 2 Comments Carlos test position - HEP piriformis stretch Supine Exercise Name piriformis stretch - HEP review Side bilateral Comments opp foot planted HS stretch with strap Supine Exercise Name HS stretch with strap Side bilateral Equipment Used nylon strap Reps/Minutes 30 SH x 4 each side Comments added cross body movement for ITB Standing Exercises paloff press Standing Exercise Name paloff press Side bilateral Resistance TB1 Comments clinic only Other Exercises sit to stand Other Exercise Name sit to stand Equipment Used meter stick for tactile feedback, green chair in gym Comments emphasis on hip hinge PT-OP-S Aquatic Treatment Start: 02/03/21 15:37 Freq: Status: Active Protocol: Document 02/09/21 16:53 SAK (Rec: 02/09/21 17:02 SAK [id number]) Aquatics Treatment Pool Entry/Exit Pool Entry/Exit Method Stairs Assistance Independent Water Walking walk with drag Water Level Chest Level Level of Assistance Verbal Cues Comments UE's at side, palms forward, neutral alignment forward, bck, side, june Water Level Chest Level Level of Assistance Verbal Cues Comments cues for core stab, neutral alignment Lower Extremity Stretches HS, ITB Details back to pool wall Body Position Standing Equipment Small Noodle Reps/Duration Hydrofit Upper Extremity Exercises hor ab/ad, flex/ext Details richy and unil Body Position Standing Water Level Chest Level Reps/Duration 10x ea Comments with emphasis on core stab Spinal Exercises deep water DLS Details Iron cross, AP, march, dbl leg lift, pendulum, UE pull down richy and single Body Position Standing Water Level [place] Equipment waist float, medium barbells Reps/Duration 10 min [place] Activities [place] Activities Bicycle,Bicycle Backwards, Running Equipment large noodle first, then waist belt Comments large noodle in hands for backward PT-OP-T Assessment and Plan Start: 02/03/21 15:37 Freq: Status: Active Protocol: Document 02/11/21 09:45 AW (Rec: 02/11/21 11:14 AW [email or web address]) Physical Therapy Assessment Impairments Impairments Balance,Functional Mobility, Gait,Pain,Posture,ROM, Sensation,Soft Tissue Mobility ,Strength Goals Four Impairment balance Short Term Goal (STG) Pt will rise on single leg ( right and left) from 19 high surface without evidence of imbalance. STG Duration 03/04/21 Fdc Goal (LTG) Pt will rise on single leg ( right and left) from 18 high surface five times without evidence of imbalance as a measure of improved single leg strength and stability. LTG Duration 04/10/21 Three Impairment MANUEL score 26 Fdc Goal (LTG) Pt will improve ODS score from 26 to 15 or less as a measure of improved daily function. LTG Duration 04/10/21 Two Impairment impaired sleep Armature Winder Goal (LTG) Pt will sleep at least 7 uninterrupted hours for 5/7 nights to promote pain management. LTG Duration 04/10/21 One Impairment lacks appropriate HEP Short Term Goal (STG) Pt will be instructed in HEP to address soft tissue restrictions and lumbar mobility. STG Duration 03/04/21 Armature Winder Goal (LTG) Pt will be independent with HEP to address BLE tissue length, strength, and balance for improved ability to self- manage pain LTG Duration 04/10/21 Assessment Summary Assessment Treatment today focused on hip mobility and core stabilization. Pt responded well. Discussed exercises provided by surgeon as good goals to work toward with proper form. Physical Therapy Plan Next Visit Focus/Plan Next Note Type Treatment Note Next Visit Plan continue hip mobility exercises, progress hip hinge, initiate standing hip strength
--- NOTE | 2021-02-16 13:56 | PT.OTN ---
Current Diagnoses Foot drop, right foot (02/11/21) Spondylolisthesis, lumbar region (02/11/21) Other spondylosis with radiculopathy, lumbar region (02/11/21) Spinal stenosis, lumbar region with neurogenic claudication (02/11/21) Other intervertebral disc displacement, lumbar region (02/11/21) Radiculopathy, lumbar region (02/11/21) Difficulty in walking, not elsewhere classified (02/11/21) Other specified postprocedural states (02/11/21) Physical Therapy Treatment Note PT-OP-A Visit Information Start: 02/03/21 15:37 Freq: Status: Active Protocol: Document 02/16/21 13:47 LJ (Rec: 02/16/21 13:56 LJ [email or web address]) Out-Patient Physical Therapy Visit Information Visit Information Visit Type Treatment Note Visit Start Time 10:15 Visit Stop Time 11:00 Total Visit Minutes 45 Number of OFFICE PROFESSIONALS Visits 1 PT-OP-B Current Condition Start: 02/03/21 15:37 Freq: Status: Active Protocol: Document 02/09/21 16:53 SAK (Rec: 02/09/21 17:02 SAK [id number]) Current Condition History of Current Condition Onset Date October 2017 Current Complaints back pain s/p back surgery; chronic right foot drop History of Current Condition Pt has a lengthy history of orthopedic injuries. By his own report, he has always played hard participating in snow and water skiing, multiple sports. He has had right rotator cuff tear, right tibia/fibula fractures and nerve damage at age 30 resulting in foot drop, right osteotomy. MRI shows multiple chronic healed fractures of unknown age. In 2018, pt spent a long day painting a ceiling , stepped off a ladder and noticed numbness in his left leg. Pain evolved into burning sensation down both legs in sciatic distribution. He was treated with PT and had a few injections with minimal relief . He consulted a neurosurgeon at [facility] in fall 2018, had PT again and another injection (relief for only two days). He has also tried accupuncure and chiropractic. He used a self-guided exercise program from his insurance ([employer] from [email or web address]) very faithfully for nearly a year. Ultimately, he elected surgery (L1-2 and L4-5 laminectomy). Since surgery Since surgery, sciatic nerve pain BLE is improved. He does note some residual left hip burning pain but nothing down the leg. He reports LBP (R more affected than left). Ice and ibuprofen are helpful. Pt historically slept on his stomach but turned into a back and side sleeper since his injury. He reports muscle spasm between shoulder blades and in hamstrings (left more) which interrupt his sleep. Prior Treatments and Tests 08/20/20 L/S MRI - 1. Multilevel degenerative disc and facet disease, as well as ligamentum flavum hypertrophy and epidural lipomatosis. 2. Multilevel canal stenoses, worst at L4-L5, where there is severe canal stenosis. Moderate to severe canal stenosis at L1-L2. 3. Multilevel foraminal stenoses, worst at L2-L3, L3- L4, L4-L5, and L5-S1, where there are moderate foraminal stenoses as described above. 4. Right lateral recess stenosis at L1-L2 associated with right L2 nerve root compression. Recommend correlation with clinical symptoms to ascertain relevance of this finding. 12/12/20 - L1-2 L4-5 decompression Treatment Goals Patient/Caregiver Goals Patient hoping aquatic therapy can help him recover and return to many of his prior activities. Reports besides PT exercises his doctor gave him a list of exercises to do at home including 1 min regular plank which is very hard for him to do. PT-OP-C Subjective Start: 02/03/21 15:37 Freq: Status: Active Protocol: Document 02/16/21 13:47 LJ (Rec: 02/16/21 13:56 LJ [email or web address]) OP-PT Subjective Patient Comments Patient Comments [place] good after AT last week. Would like to get HEP so he can come to pool on his own to workout. PT-OP-D Balance Start: 02/03/21 15:37 Freq: Status: Active Protocol: Document 02/04/21 09:45 AW (Rec: 02/04/21 11:09 AW [email or web address]) Balance Tests Single Limb Standing Single Limb- Right 10 seconds unsteady, reaching for support Single Limb- Left 25 seconds steady PT-OP-E Functional Tests Start: 02/03/21 15:37 Freq: Status: Active Protocol: Document 02/04/21 09:45 AW (Rec: 02/04/21 11:10 AW [email or web address]) Functional Tests Single Leg Squat Test Comment LLE able to stand steadily from 18 mat; RLE unsteady from 22 mat PT-OP-H Neuro Start: 02/03/21 15:37 Freq: Status: Active Protocol: Document 02/04/21 09:45 AW (Rec: 02/04/21 12:49 AW [email or web address]) Sensation Evaluation Gross Sensation Gross Sensation Right LE Impaired Sensation Description Numbness Comments Summary Comments Pt reports chronic dull sensation right lateral and anterior shank and dorsal foot . Deep Tendon Reflex & Clonus Assessment Deep Tendon Reflex Bilateral Achilles Deep Tendon Reflex 1+ Diminished Bilateral Patellar Deep Tendon Reflex 1+ Diminished PT-OP-J Posture/Palpation/Skin Start: 02/03/21 15:37 Freq: Status: Active Protocol: Document 02/04/21 09:45 AW (Rec: 02/04/21 12:49 AW [email or web address]) Posture Evaluation Position Standing Head/C-Spine Posture Forward Head L-Spine Posture Flattened Weight Distribution Weight Shifted Left Palpation Assessment Location BLE Palpation Findings Soft Tissue Tightness Palpation Details Reduced HS length in supine 90 /90 - lacking ~30 degrees BLE. Internal rotation is severely limited bilaterally in supine . External rotation moderately limited. lumbar paraspinals Palpation Details Increased tone right lumbar paraspinals at levels of incisions. Skin Assessment Incisional Assessment Incision Appearance/Comments Healing incisions along L1-2 and L4-5. Slightly reduced scar mobility PT-OP-K Range of Motion Start: 02/03/21 15:37 Freq: Status: Active Protocol: Document 02/04/21 09:45 AW (Rec: 02/05/21 10:06 AW [email or web address]) Lumbar Spine Range of Motion Lumbar Spine Active Degrees Testing Position Standing Flexion 65 Extension 16 ROM Limitations Pain Comments Painful right rotation especially in sitting. Pt is able to laterally flex with fingertips to knee joint line bilaterally without c/o pain. Hip Goniometric Range of Motion Hip ROM Limitations Hip ROM Limitations Soft Tissue Tightness Comments Internal rotation in B hips is severely limited; external rotation moderately limited. In supine, remaining hip AROM and PROM WNL Knee Goniometric Range of Motion Knee ROM Limitations Knee ROM Limitations Soft Tissue Tightness Comments In supine 90/90, pt lacks 30 degrees knee extension bilaterally. Ankle and Foot Goniometric Range of Motion Ankle and Foot bilat Ankle/Foot ROM WFL No Comments Right ankle DF AROM limited ( less than neutral). Ankle and Foot ROM Limitations ROM Limitations Muscle Weakness Comments Pt reports nerve injury secondary to fracture >30 years ago which resulted in functional right foot drop. PT-OP-M Strength Start: 02/03/21 15:37 Freq: Status: Active Protocol: Document 02/04/21 09:45 AW (Rec: 02/05/21 10:06 AW [email or web address]) Hip Strength Hip Manual Muscle Testing bilat Flexion (L2) 4+ Good+ Extension (S1) 4 Good Abduction 4+ Good+ Knee Strength Knee Manual Muscle Testing bilat Flexion (S2) 5 Normal Extension (L3) 5 Normal Ankle/Foot Strength Ankle and Foot Manual Muscle Testing Right Dorsiflexion (L4) 3- Fair- Plantarflexion (S1) 5 Normal Left Dorsiflexion (L4) 5 Normal Plantarflexion (S1) 5 Normal Comments Pt performs 20 single leg heel raises right and left without evidence of imbalance. Toe Strength Toe Manual Muscle Testing Right Great Toe Flexion 4 Good Extension 4 Good Comments Left great toe 5/5 PT-OP-Q Treatments Start: 02/03/21 15:37 Freq: Status: Active Protocol: Document 02/11/21 09:45 AW (Rec: 02/11/21 09:50 AW [id number]) Cardio Equipment Elliptical Duration (Minutes) 5 Resistance 5 Other able to carry on conversation Therapeutic Exercises Supine Exercises TrA Supine Exercise Name TrA Comments BKFO, single leg march, leg extension hip flexor stretch Supine Exercise Name hip flexor stretch Side bilateral Reps/Minutes 1 min hold x 2 Comments Carlos test position - HEP piriformis stretch Supine Exercise Name piriformis stretch - HEP review Side bilateral Comments opp foot planted HS stretch with strap Supine Exercise Name HS stretch with strap Side bilateral Equipment Used nylon strap Reps/Minutes 30 SH x 4 each side Comments added cross body movement for ITB Standing Exercises paloff press Standing Exercise Name paloff press Side bilateral Resistance TB1 Comments clinic only Other Exercises sit to stand Other Exercise Name sit to stand Equipment Used meter stick for tactile feedback, green chair in gym Comments emphasis on hip hinge PT-OP-S Aquatic Treatment Start: 02/03/21 15:37 Freq: Status: Active Protocol: Document 02/16/21 13:47 LJ (Rec: 02/16/21 13:56 LJ [email or web address]) Aquatics Treatment Pool Entry/Exit Pool Entry/Exit Method Stairs Assistance Independent Water Walking Lunge Walk Water Level Chest Level Level of Assistance Verbal Cues Comments emphasis on full knee extension when standing walk with drag Water Level Chest Level Level of Assistance Verbal Cues Comments UE's at side, palms forward, neutral alignment forward, bck, side, june Water Level Chest Level Level of Assistance Verbal Cues Comments cues for core stab, neutral alignment Lower Extremity Stretches hip flexors Details facing wall Body Position Standing Comments therapist assist quads Details facing wall Body Position Standing Comments therapist assist HS, ITB Details back to pool wall Body Position Standing Equipment Small Noodle Upper Extremity Exercises hor ab/ad, flex/ext Details richy and unil Body Position Standing Water Level Chest Level Reps/Duration 10x 2 ea Comments with emphasis on core stab Spinal Exercises deep water DLS Details Iron cross, AP, march, dbl leg lift , pendulum, UE pull down richy and single Body Position Standing Water Level [place] Equipment waist float, medium barbells Reps/Duration 15 min Burke Activities Burke Activities Bicycle,Bicycle Backwards, Running Equipment large noodle first, then waist belt Comments large noodle in hands for backward PT-OP-T Assessment and Plan Start: 02/03/21 15:37 Freq: Status: Active Protocol: Document 02/16/21 13:47 RADHA (Rec: 02/16/21 13:56 RADHA [email or web address]) Physical Therapy Assessment Impairments Impairments Balance,Functional Mobility, Gait,Pain,Posture,ROM, Sensation,Soft Tissue Mobility ,Strength Goals Four Impairment balance Short Term Goal (STG) Pt will rise on single leg ( right and left) from 19 high surface without evidence of imbalance. STG Duration 03/04/21 [facility] Goal (LTG) Pt will rise on single leg ( right and left) from 18 high surface five times without evidence of imbalance as a measure of improved single leg strength and stability. LTG Duration 04/10/21 Three Impairment MANUEL score 26 Powerhouse Mechanic Supervisor Goal (LTG) Pt will improve ODS score from 26 to 15 or less as a measure of improved daily function. LTG Duration 04/10/21 Two Impairment impaired sleep [facility] Goal (LTG) Pt will sleep at least 7 uninterrupted hours for 5/7 nights to promote pain management. LTG Duration 04/10/21 One Impairment lacks appropriate HEP Short Term Goal (STG) Pt will be instructed in HEP to address soft tissue restrictions and lumbar mobility. STG Duration 03/04/21 [facility] Goal (LTG) Pt will be independent with HEP to address BLE tissue length, strength, and balance for improved ability to self- manage pain LTG Duration 04/10/21 Assessment Summary Assessment Pt demonstrates good posture and understanding of spinal neutral during deep and shallow exercises. Would like to come to pool on his own to progress AT faster. Physical Therapy Plan Next Visit Focus/Plan Next Note Type Treatment Note Next Visit Plan continue hip mobility exercises, progress hip hinge, initiate standing hip strength
--- NOTE | 2021-02-18 12:27 | PT.OTN ---
Current Diagnoses Foot drop, right foot (02/18/21) Spondylolisthesis, lumbar region (02/18/21) Other spondylosis with radiculopathy, lumbar region (02/18/21) Spinal stenosis, lumbar region with neurogenic claudication (02/18/21) Other intervertebral disc displacement, lumbar region (02/18/21) Radiculopathy, lumbar region (02/18/21) Difficulty in walking, not elsewhere classified (02/18/21) Other specified postprocedural states (02/18/21) Physical Therapy Treatment Note PT-OP-A Visit Information Start: 02/03/21 15:37 Freq: Status: Active Protocol: Document 02/18/21 09:45 AW (Rec: 02/18/21 09:47 AW [id number]) Out-Patient Physical Therapy Visit Information Visit Information Visit Type Treatment Note Visit Start Time 09:01 Visit Stop Time 09:45 Total Visit Minutes 44 Visit Number 5 Number of SAS ARCHITECT Visits 0 PT-OP-B Current Condition Start: 02/03/21 15:37 Freq: Status: Active Protocol: Document 02/09/21 16:53 SAK (Rec: 02/09/21 17:02 SAK [id number]) Current Condition History of Current Condition Onset Date October 2017 Current Complaints back pain s/p back surgery; chronic right foot drop History of Current Condition Pt has a lengthy history of orthopedic injuries. By his own report, he has always played hard participating in snow and water skiing, multiple sports. He has had right rotator cuff tear, right tibia/fibula fractures and nerve damage at age 30 resulting in foot drop, right osteotomy. MRI shows multiple chronic healed fractures of unknown age. In 2018, pt spent a long day painting a ceiling , stepped off a ladder and noticed numbness in his left leg. Pain evolved into burning sensation down both legs in sciatic distribution. He was treated with PT and had a few injections with minimal relief . He consulted a neurosurgeon at [facility] in fall 2018, had PT again and another injection (relief for only two days). He has also tried accupuncure and chiropractic. He used a self-guided exercise program from his insurance ([employer] from [facility]) very faithfully for nearly a year. Ultimately, he elected surgery (L1-2 and L4-5 laminectomy). Since surgery Since surgery, sciatic nerve pain BLE is improved. He does note some residual left hip burning pain but nothing down the leg. He reports LBP (R more affected than left). Ice and ibuprofen are helpful. Pt historically slept on his stomach but turned into a back and side sleeper since his injury. He reports muscle spasm between shoulder blades and in hamstrings (left more) which interrupt his sleep. Prior Treatments and Tests 08/20/20 L/S MRI - 1. Multilevel degenerative disc and facet disease, as well as ligamentum flavum hypertrophy and epidural lipomatosis. 2. Multilevel canal stenoses, worst at L4-L5, where there is severe canal stenosis. Moderate to severe canal stenosis at L1-L2. 3. Multilevel foraminal stenoses, worst at L2-L3, L3- L4, L4-L5, and L5-S1, where there are moderate foraminal stenoses as described above. 4. Right lateral recess stenosis at L1-L2 associated with right L2 nerve root compression. Recommend correlation with clinical symptoms to ascertain relevance of this finding. 12/12/20 - L1-2 L4-5 decompression Treatment Goals Patient/Caregiver Goals Patient hoping aquatic therapy can help him recover and return to many of his prior activities. Reports besides PT exercises his doctor gave him a list of exercises to do at home including 1 min regular plank which is very hard for him to do. PT-OP-C Subjective Start: 02/03/21 15:37 Freq: Status: Active Protocol: Document 02/18/21 09:45 AW (Rec: 02/18/21 09:47 AW [id number]) OP-PT Subjective Patient Comments Patient Comments Pt enjoying his time in the pool, looking into purchasing a [employer]. PT-OP-D Balance Start: 02/03/21 15:37 Freq: Status: Active Protocol: Document 02/04/21 09:45 AW (Rec: 02/04/21 11:09 AW [email or web address]) Balance Tests Single Limb Standing Single Limb- Right 10 seconds unsteady, reaching for support Single Limb- Left 25 seconds steady PT-OP-E Functional Tests Start: 02/03/21 15:37 Freq: Status: Active Protocol: Document 02/04/21 09:45 AW (Rec: 02/04/21 11:10 AW [email or web address]) Functional Tests Single Leg Squat Test Comment LLE able to stand steadily from 18 mat; RLE unsteady from 22 mat PT-OP-H Neuro Start: 02/03/21 15:37 Freq: Status: Active Protocol: Document 02/04/21 09:45 AW (Rec: 02/04/21 12:49 AW [email or web address]) Sensation Evaluation Gross Sensation Gross Sensation Right LE Impaired Sensation Description Numbness Comments Summary Comments Pt reports chronic dull sensation right lateral and anterior shank and dorsal foot . Deep Tendon Reflex & Clonus Assessment Deep Tendon Reflex Bilateral Achilles Deep Tendon Reflex 1+ Diminished Bilateral Patellar Deep Tendon Reflex 1+ Diminished PT-OP-J Posture/Palpation/Skin Start: 02/03/21 15:37 Freq: Status: Active Protocol: Document 02/04/21 09:45 AW (Rec: 02/04/21 12:49 AW [email or web address]) Posture Evaluation Position Standing Head/C-Spine Posture Forward Head L-Spine Posture Flattened Weight Distribution Weight Shifted Left Palpation Assessment Location BLE Palpation Findings Soft Tissue Tightness Palpation Details Reduced HS length in supine 90 /90 - lacking ~30 degrees BLE. Internal rotation is severely limited bilaterally in supine . External rotation moderately limited. lumbar paraspinals Palpation Details Increased tone right lumbar paraspinals at levels of incisions. Skin Assessment Incisional Assessment Incision Appearance/Comments Healing incisions along L1-2 and L4-5. Slightly reduced scar mobility PT-OP-K Range of Motion Start: 02/03/21 15:37 Freq: Status: Active Protocol: Document 02/04/21 09:45 AW (Rec: 02/05/21 10:06 AW [email or web address]) Lumbar Spine Range of Motion Lumbar Spine Active Degrees Testing Position Standing Flexion 65 Extension 16 ROM Limitations Pain Comments Painful right rotation especially in sitting. Pt is able to laterally flex with fingertips to knee joint line bilaterally without c/o pain. Hip Goniometric Range of Motion Hip ROM Limitations Hip ROM Limitations Soft Tissue Tightness Comments Internal rotation in B hips is severely limited; external rotation moderately limited. In supine, remaining hip AROM and PROM WNL Knee Goniometric Range of Motion Knee ROM Limitations Knee ROM Limitations Soft Tissue Tightness Comments In supine 90/90, pt lacks 30 degrees knee extension bilaterally. Ankle and Foot Goniometric Range of Motion Ankle and Foot bilat Ankle/Foot ROM WFL No Comments Right ankle DF AROM limited ( less than neutral). Ankle and Foot ROM Limitations ROM Limitations Muscle Weakness Comments Pt reports nerve injury secondary to fracture >30 years ago which resulted in functional right foot drop. PT-OP-M Strength Start: 02/03/21 15:37 Freq: Status: Active Protocol: Document 02/04/21 09:45 AW (Rec: 02/05/21 10:06 AW [email or web address]) Hip Strength Hip Manual Muscle Testing bilat Flexion (L2) 4+ Good+ Extension (S1) 4 Good Abduction 4+ Good+ Knee Strength Knee Manual Muscle Testing bilat Flexion (S2) 5 Normal Extension (L3) 5 Normal Ankle/Foot Strength Ankle and Foot Manual Muscle Testing Right Dorsiflexion (L4) 3- Fair- Plantarflexion (S1) 5 Normal Left Dorsiflexion (L4) 5 Normal Plantarflexion (S1) 5 Normal Comments Pt performs 20 single leg heel raises right and left without evidence of imbalance. Toe Strength Toe Manual Muscle Testing Right Great Toe Flexion 4 Good Extension 4 Good Comments Left great toe 5/5 PT-OP-Q Treatments Start: 02/03/21 15:37 Freq: Status: Active Protocol: Document 02/18/21 09:45 AW (Rec: 02/18/21 09:47 AW [id number]) Cardio Equipment Elliptical Duration (Minutes) 5 Resistance 5 Other able to carry on conversation Therapeutic Exercises Supine Exercises ITB stretch Supine Exercise Name ITB stretch Equipment Used legs crossed Reps/Minutes 30 SH x 2 Comments HEP bridge Supine Exercise Name bridge Equipment Used small ball <-> knees for alignment Reps/Minutes 2x12; 2nd set with 5SH LTR Supine Exercise Name LTR Reps/Minutes 1 min x 2 Comments cued segmental control TrA Supine Exercise Name TrA Comments double leg extension HS stretch with strap Supine Exercise Name HS stretch with strap Side bilateral Equipment Used nylon strap Reps/Minutes 30 SH x 4 each side Comments with cross body movement for ITB Standing Exercises paloff press Standing Exercise Name paloff press Side bilateral Resistance TB1 Comments with GH flexion; clinic only PT-OP-S Aquatic Treatment Start: 02/03/21 15:37 Freq: Status: Active Protocol: Document 02/16/21 13:47 LJ (Rec: 02/16/21 13:56 LJ [email or web address]) Aquatics Treatment Pool Entry/Exit Pool Entry/Exit Method Stairs Assistance Independent Water Walking Lunge Walk Water Level Chest Level Level of Assistance Verbal Cues Comments emphasis on full knee extension when standing walk with drag Water Level Chest Level Level of Assistance Verbal Cues Comments UE's at side, palms forward, neutral alignment forward, bck, side, march Water Level Chest Level Level of Assistance Verbal Cues Comments cues for core stab, neutral alignment Lower Extremity Stretches hip flexors Details facing wall Body Position Standing Comments therapist assist quads Details facing wall Body Position Standing Comments therapist assist HS, ITB Details back to pool wall Body Position Standing Equipment Small Noodle Upper Extremity Exercises hor ab/ad, flex/ext Details richy and unil Body Position Standing Water Level Chest Level Reps/Duration 10x 2 ea Comments with emphasis on core stab Spinal Exercises deep water DLS Details Iron cross, AP, march, dbl leg lift , pendulum, UE pull down richy and single Body Position Standing Water Level [place] Equipment waist float, medium barbells Reps/Duration 15 min Sinclair Activities Sinclair Activities Bicycle,Bicycle Backwards, Running Equipment large noodle first, then waist belt Comments large noodle in hands for backward PT-OP-T Assessment and Plan Start: 02/03/21 15:37 Freq: Status: Active Protocol: Document 02/18/21 09:45 AW (Rec: 02/18/21 12:26 AW [email or web address]) Physical Therapy Assessment Impairments Impairments Balance,Functional Mobility, Gait,Pain,Posture,ROM, Sensation,Soft Tissue Mobility ,Strength Goals Four Impairment balance Short Term Goal (STG) Pt will rise on single leg ( right and left) from 19 high surface without evidence of imbalance. STG Duration 03/04/21 Sewing Pattern Layout Technician Goal (LTG) Pt will rise on single leg ( right and left) from 18 high surface five times without evidence of imbalance as a measure of improved single leg strength and stability. LTG Duration 04/10/21 Three Impairment MANUEL score 26 Sewing Pattern Layout Technician Goal (LTG) Pt will improve ODS score from 26 to 15 or less as a measure of improved daily function. LTG Duration 04/10/21 Two Impairment impaired sleep [facility] Goal (LTG) Pt will sleep at least 7 uninterrupted hours for 5/7 nights to promote pain management. LTG Duration 04/10/21 One Impairment lacks appropriate HEP Short Term Goal (STG) Pt will be instructed in HEP to address soft tissue restrictions and lumbar mobility. STG Duration 03/04/21 Sewing Pattern Layout Technician Goal (LTG) Pt will be independent with HEP to address BLE tissue length, strength, and balance for improved ability to self- manage pain LTG Duration 04/10/21 Assessment Summary Assessment Continued focus on hip mobility and core stabilization. Pt tolerated increase in ther ex load well with no complaint of increased pain. Physical Therapy Plan Next Visit Focus/Plan Next Note Type Treatment Note Next Visit Plan continue hip mobility exercises, progress hip hinge, initiate standing hip strength
--- NOTE | 2021-02-23 14:23 | PT.OTN ---
Current Diagnoses Foot drop, right foot (02/23/21) Spondylolisthesis, lumbar region (02/23/21) Other spondylosis with radiculopathy, lumbar region (02/23/21) Spinal stenosis, lumbar region with neurogenic claudication (02/23/21) Other intervertebral disc displacement, lumbar region (02/23/21) Radiculopathy, lumbar region (02/23/21) Difficulty in walking, not elsewhere classified (02/23/21) Other specified postprocedural states (02/23/21) Physical Therapy Treatment Note PT-OP-A Visit Information Start: 02/03/21 15:37 Freq: Status: Active Protocol: Document 02/23/21 13:50 LJ (Rec: 02/23/21 14:23 LJ [email or web address]) Out-Patient Physical Therapy Visit Information Visit Information Visit Type Aquatic Treatment Note Visit Start Time 10:15 Visit Stop Time 11:00 Total Visit Minutes 45 Visit Number 6 Number of [employer] OPERATOR Visits 1 PT-OP-B Current Condition Start: 02/03/21 15:37 Freq: Status: Active Protocol: Document 02/09/21 16:53 SAK (Rec: 02/09/21 17:02 SAK [email or web address]) Current Condition History of Current Condition Onset Date October 2017 Current Complaints back pain s/p back surgery; chronic right foot drop History of Current Condition Pt has a lengthy history of orthopedic injuries. By his own report, he has always played hard participating in snow and water skiing, multiple sports. He has had right rotator cuff tear, right tibia/fibula fractures and nerve damage at age 30 resulting in foot drop, right osteotomy. MRI shows multiple chronic healed fractures of unknown age. In 2018, pt spent a long day painting a ceiling , stepped off a ladder and noticed numbness in his left leg. Pain evolved into burning sensation down both legs in sciatic distribution. He was treated with PT and had a few injections with minimal relief . He consulted a neurosurgeon at [facility] in fall 2018, had PT again and another injection (relief for only two days). He has also tried accupuncure and chiropractic. He used a self-guided exercise program from his insurance ([employer] from [facility]) very faithfully for nearly a year. Ultimately, he elected surgery (L1-2 and L4-5 laminectomy). Since surgery Since surgery, sciatic nerve pain BLE is improved. He does note some residual left hip burning pain but nothing down the leg. He reports LBP (R more affected than left). Ice and ibuprofen are helpful. Pt historically slept on his stomach but turned into a back and side sleeper since his injury. He reports muscle spasm between shoulder blades and in hamstrings (left more) which interrupt his sleep. Prior Treatments and Tests 08/20/20 L/S MRI - 1. Multilevel degenerative disc and facet disease, as well as ligamentum flavum hypertrophy and epidural lipomatosis. 2. Multilevel canal stenoses, worst at L4-L5, where there is severe canal stenosis. Moderate to severe canal stenosis at L1-L2. 3. Multilevel foraminal stenoses, worst at L2-L3, L3- L4, L4-L5, and L5-S1, where there are moderate foraminal stenoses as described above. 4. Right lateral recess stenosis at L1-L2 associated with right L2 nerve root compression. Recommend correlation with clinical symptoms to ascertain relevance of this finding. 12/12/20 - L1-2 L4-5 decompression Treatment Goals Patient/Caregiver Goals Patient hoping aquatic therapy can help him recover and return to many of his prior activities. Reports besides PT exercises his doctor gave him a list of exercises to do at home including 1 min regular plank which is very hard for him to do. PT-OP-C Subjective Start: 02/03/21 15:37 Freq: Status: Active Protocol: Document 02/23/21 13:50 LJ (Rec: 02/23/21 14:23 LJ [email or web address]) OP-PT Subjective Patient Comments Patient Comments Pt said he was a little sore in R hip flexor last week as well as in shoulders after band exercises in clinic. Wore a wetsuit this session. PT-OP-D Balance Start: 02/03/21 15:37 Freq: Status: Active Protocol: Document 02/04/21 09:45 AW (Rec: 02/04/21 11:09 AW [email or web address]) Balance Tests Single Limb Standing Single Limb- Right 10 seconds unsteady, reaching for support Single Limb- Left 25 seconds steady PT-OP-E Functional Tests Start: 02/03/21 15:37 Freq: Status: Active Protocol: Document 02/04/21 09:45 AW (Rec: 02/04/21 11:10 AW [email or web address]) Functional Tests Single Leg Squat Test Comment LLE able to stand steadily from 18 mat; RLE unsteady from 22 mat PT-OP-H Neuro Start: 02/03/21 15:37 Freq: Status: Active Protocol: Document 02/04/21 09:45 AW (Rec: 02/04/21 12:49 AW [email or web address]) Sensation Evaluation Gross Sensation Gross Sensation Right LE Impaired Sensation Description Numbness Comments Summary Comments Pt reports chronic dull sensation right lateral and anterior shank and dorsal foot . Deep Tendon Reflex & Clonus Assessment Deep Tendon Reflex Bilateral Achilles Deep Tendon Reflex 1+ Diminished Bilateral Patellar Deep Tendon Reflex 1+ Diminished PT-OP-J Posture/Palpation/Skin Start: 02/03/21 15:37 Freq: Status: Active Protocol: Document 02/04/21 09:45 AW (Rec: 02/04/21 12:49 AW [email or web address]) Posture Evaluation Position Standing Head/C-Spine Posture Forward Head L-Spine Posture Flattened Weight Distribution Weight Shifted Left Palpation Assessment Location BLE Palpation Findings Soft Tissue Tightness Palpation Details Reduced HS length in supine 90 /90 - lacking ~30 degrees BLE. Internal rotation is severely limited bilaterally in supine . External rotation moderately limited. lumbar paraspinals Palpation Details Increased tone right lumbar paraspinals at levels of incisions. Skin Assessment Incisional Assessment Incision Appearance/Comments Healing incisions along L1-2 and L4-5. Slightly reduced scar mobility PT-OP-K Range of Motion Start: 02/03/21 15:37 Freq: Status: Active Protocol: Document 02/04/21 09:45 AW (Rec: 02/05/21 10:06 AW [email or web address]) Lumbar Spine Range of Motion Lumbar Spine Active Degrees Testing Position Standing Flexion 65 Extension 16 ROM Limitations Pain Comments Painful right rotation especially in sitting. Pt is able to laterally flex with fingertips to knee joint line bilaterally without c/o pain. Hip Goniometric Range of Motion Hip ROM Limitations Hip ROM Limitations Soft Tissue Tightness Comments Internal rotation in B hips is severely limited; external rotation moderately limited. In supine, remaining hip AROM and PROM WNL Knee Goniometric Range of Motion Knee ROM Limitations Knee ROM Limitations Soft Tissue Tightness Comments In supine 90/90, pt lacks 30 degrees knee extension bilaterally. Ankle and Foot Goniometric Range of Motion Ankle and Foot bilat Ankle/Foot ROM WFL No Comments Right ankle DF AROM limited ( less than neutral). Ankle and Foot ROM Limitations ROM Limitations Muscle Weakness Comments Pt reports nerve injury secondary to fracture >30 years ago which resulted in functional right foot drop. PT-OP-M Strength Start: 02/03/21 15:37 Freq: Status: Active Protocol: Document 02/04/21 09:45 AW (Rec: 02/05/21 10:06 AW [email or web address]) Hip Strength Hip Manual Muscle Testing bilat Flexion (L2) 4+ Good+ Extension (S1) 4 Good Abduction 4+ Good+ Knee Strength Knee Manual Muscle Testing bilat Flexion (S2) 5 Normal Extension (L3) 5 Normal Ankle/Foot Strength Ankle and Foot Manual Muscle Testing Right Dorsiflexion (L4) 3- Fair- Plantarflexion (S1) 5 Normal Left Dorsiflexion (L4) 5 Normal Plantarflexion (S1) 5 Normal Comments Pt performs 20 single leg heel raises right and left without evidence of imbalance. Toe Strength Toe Manual Muscle Testing Right Great Toe Flexion 4 Good Extension 4 Good Comments Left great toe 5/5 PT-OP-Q Treatments Start: 02/03/21 15:37 Freq: Status: Active Protocol: Document 02/18/21 09:45 AW (Rec: 02/18/21 09:47 AW [id number]) Cardio Equipment Elliptical Duration (Minutes) 5 Resistance 5 Other able to carry on conversation Therapeutic Exercises Supine Exercises ITB stretch Supine Exercise Name ITB stretch Equipment Used legs crossed Reps/Minutes 30 SH x 2 Comments HEP bridge Supine Exercise Name bridge Equipment Used small ball <-> knees for alignment Reps/Minutes 2x12; 2nd set with 5SH LTR Supine Exercise Name LTR Reps/Minutes 1 min x 2 Comments cued segmental control TrA Supine Exercise Name TrA Comments double leg extension HS stretch with strap Supine Exercise Name HS stretch with strap Side bilateral Equipment Used nylon strap Reps/Minutes 30 SH x 4 each side Comments with cross body movement for ITB Standing Exercises paloff press Standing Exercise Name paloff press Side bilateral Resistance TB1 Comments with GH flexion; clinic only PT-OP-S Aquatic Treatment Start: 02/03/21 15:37 Freq: Status: Active Protocol: Document 02/23/21 13:50 LJ (Rec: 02/23/21 14:23 LJ [email or web address]) Aquatics Treatment Pool Entry/Exit Pool Entry/Exit Method Stairs Assistance Independent Water Walking circumduction Water Level Chest Level Level of Assistance Verbal Cues backward lunge walking Water Level Chest Level Level of Assistance Verbal Cues Comments emphasis on full knee extension when standing Lunge Walk Water Level Chest Level Level of Assistance Verbal Cues Comments emphasis on full knee extension when standing walk with drag Water Level Chest Level Level of Assistance Verbal Cues Comments UE's at side, palms forward, neutral alignment forward, bck, side, march Water Level Chest Level Level of Assistance Verbal Cues Comments cues for core stab, neutral alignment Lower Extremity Exercises kick back Details at wall Body Position Standing Water Level Waist Level Reps/Duration 10 x2 B Comments emphasis on abdominal bracing knee extension Details at wall Body Position Standing Water Level Waist Level Reps/Duration 10 x2 B hip ab/ad Body Position Standing Water Level Waist Level Reps/Duration 10 x2 B hip flex/ext Body Position Standing Water Level Waist Level Reps/Duration 10 x2 B Lower Extremity Stretches hip flexors Details resting foot on table Body Position Standing Comments therapist assist quads Details facing wall Body Position Standing Comments therapist assist HS, ITB Details back to pool wall Body Position Standing Equipment Small Noodle Upper Extremity Exercises hor ab/ad, flex/ext Details richy and unil Body Position Standing Water Level Chest Level Reps/Duration 10x 2 ea Comments with emphasis on core stab Balance plyometric pistol squats Body Position Standing Water Level Chest Level Reps/Duration 10 x2 B [place] Activities [place] Activities Bicycle,Bicycle Backwards, Running Equipment belt, lg BBs PT-OP-T Assessment and Plan Start: 02/03/21 15:37 Freq: Status: Active Protocol: Document 02/23/21 13:50 LJ (Rec: 02/23/21 14:23 RADHA [email or web address]) Physical Therapy Assessment Impairments Impairments Balance,Functional Mobility, Gait,Pain,Posture,ROM, Sensation,Soft Tissue Mobility ,Strength Goals Four Impairment balance Short Term Goal (STG) Pt will rise on single leg ( right and left) from 19 high surface without evidence of imbalance. STG Duration 03/04/21 Child Care Teacher Goal (LTG) Pt will rise on single leg ( right and left) from 18 high surface five times without evidence of imbalance as a measure of improved single leg strength and stability. LTG Duration 04/10/21 Three Impairment AMNUEL score 26 Child Care Teacher Goal (LTG) Pt will improve ODS score from 26 to 15 or less as a measure of improved daily function. LTG Duration 04/10/21 Two Impairment impaired sleep Child Care Teacher Goal (LTG) Pt will sleep at least 7 uninterrupted hours for 5/7 nights to promote pain management. LTG Duration 04/10/21 One Impairment lacks appropriate HEP Short Term Goal (STG) Pt will be instructed in HEP to address soft tissue restrictions and lumbar mobility. STG Duration 03/04/21 Nursing Home Goal (LTG) Pt will be independent with HEP to address BLE tissue length, strength, and balance for improved ability to self- manage pain LTG Duration 04/10/21 Assessment Summary Assessment Pt did very well with all walking and LE exercises demonstrating good balance. Continue progressing with added weight and/or floatation depending on exercise. Increase cardio exertion in deep water as tolerated. Physical Therapy Plan Frequency and Duration Frequency of Treatment 1-2x/week Duration of Treatment 2 months Plan of Care Start Date 02/04/21 Plan of Care End Date 04/10/21 Therapeutic Interventions Therapeutic Interventions Aquatic Therapy,Balance Training,Gait Training,Home Exercise Program,Manual Therapy,Neuromuscular Re- education,Patient/Caregiver Education,Self-Care/Home Management,Sensory Integration ,Soft Tissue Mobilization, Therapeutic Activities, Therapeutic Exercises Modalities Cold Pack/Ice Massage,Hot Packs Next Visit Focus/Plan Next Note Type Treatment Note Next Visit Plan Progress hip exercises with added ankle weights and floats where appropriate.
--- NOTE | 2021-02-25 10:30 | PT.OTN ---
Current Diagnoses Foot drop, right foot (02/25/21) Spondylolisthesis, lumbar region (02/25/21) Other spondylosis with radiculopathy, lumbar region (02/25/21) Spinal stenosis, lumbar region with neurogenic claudication (02/25/21) Other intervertebral disc displacement, lumbar region (02/25/21) Radiculopathy, lumbar region (02/25/21) Difficulty in walking, not elsewhere classified (02/25/21) Other specified postprocedural states (02/25/21) Physical Therapy Treatment Note PT-OP-A Visit Information Start: 02/03/21 15:37 Freq: Status: Active Protocol: Document 02/25/21 09:59 AW (Rec: 02/25/21 09:49 AW [id number]) Out-Patient Physical Therapy Visit Information Visit Information Visit Type Treatment Note Visit Start Time 09:00 Visit Stop Time 09:59 Total Visit Minutes 59 Visit Number 7 Number of CASHIER ASSISTANT Visits 0 PT-OP-B Current Condition Start: 02/03/21 15:37 Freq: Status: Active Protocol: Document 02/09/21 16:53 SAK (Rec: 02/09/21 17:02 SAK [id number]) Current Condition History of Current Condition Onset Date October 2017 Current Complaints back pain s/p back surgery; chronic right foot drop History of Current Condition Pt has a lengthy history of orthopedic injuries. By his own report, he has always played hard participating in snow and water skiing, multiple sports. He has had right rotator cuff tear, right tibia/fibula fractures and nerve damage at age 30 resulting in foot drop, right osteotomy. MRI shows multiple chronic healed fractures of unknown age. In 2018, pt spent a long day painting a ceiling , stepped off a ladder and noticed numbness in his left leg. Pain evolved into burning sensation down both legs in sciatic distribution. He was treated with PT and had a few injections with minimal relief . He consulted a neurosurgeon at [facility] in fall 2018, had PT again and another injection (relief for only two days). He has also tried accupuncure and chiropractic. He used a self-guided exercise program from his insurance ([employer] from [facility]) very faithfully for nearly a year. Ultimately, he elected surgery (L1-2 and L4-5 laminectomy). Since surgery Since surgery, sciatic nerve pain BLE is improved. He does note some residual left hip burning pain but nothing down the leg. He reports LBP (R more affected than left). Ice and ibuprofen are helpful. Pt historically slept on his stomach but turned into a back and side sleeper since his injury. He reports muscle spasm between shoulder blades and in hamstrings (left more) which interrupt his sleep. Prior Treatments and Tests 08/20/20 L/S MRI - 1. Multilevel degenerative disc and facet disease, as well as ligamentum flavum hypertrophy and epidural lipomatosis. 2. Multilevel canal stenoses, worst at L4-L5, where there is severe canal stenosis. Moderate to severe canal stenosis at L1-L2. 3. Multilevel foraminal stenoses, worst at L2-L3, L3- L4, L4-L5, and L5-S1, where there are moderate foraminal stenoses as described above. 4. Right lateral recess stenosis at L1-L2 associated with right L2 nerve root compression. Recommend correlation with clinical symptoms to ascertain relevance of this finding. 12/12/20 - L1-2 L4-5 decompression Treatment Goals Patient/Caregiver Goals Patient hoping aquatic therapy can help him recover and return to many of his prior activities. Reports besides PT exercises his doctor gave him a list of exercises to do at home including 1 min regular plank which is very hard for him to do. PT-OP-C Subjective Start: 02/03/21 15:37 Freq: Status: Active Protocol: Document 02/25/21 09:59 AW (Rec: 02/25/21 09:49 AW [id number]) OP-PT Subjective Patient Comments Patient Comments Today, low back feels like it wants to spasm. May have overdone it with band exercises in PT last week. PT-OP-D Balance Start: 02/03/21 15:37 Freq: Status: Active Protocol: Document 02/04/21 09:45 AW (Rec: 02/04/21 11:09 AW [email or web address]) Balance Tests Single Limb Standing Single Limb- Right 10 seconds unsteady, reaching for support Single Limb- Left 25 seconds steady PT-OP-E Functional Tests Start: 02/03/21 15:37 Freq: Status: Active Protocol: Document 02/04/21 09:45 AW (Rec: 02/04/21 11:10 AW [email or web address]) Functional Tests Single Leg Squat Test Comment LLE able to stand steadily from 18 mat; RLE unsteady from 22 mat PT-OP-H Neuro Start: 02/03/21 15:37 Freq: Status: Active Protocol: Document 02/04/21 09:45 AW (Rec: 02/04/21 12:49 AW [email or web address]) Sensation Evaluation Gross Sensation Gross Sensation Right LE Impaired Sensation Description Numbness Comments Summary Comments Pt reports chronic dull sensation right lateral and anterior shank and dorsal foot . Deep Tendon Reflex & Clonus Assessment Deep Tendon Reflex Bilateral Achilles Deep Tendon Reflex 1+ Diminished Bilateral Patellar Deep Tendon Reflex 1+ Diminished PT-OP-J Posture/Palpation/Skin Start: 02/03/21 15:37 Freq: Status: Active Protocol: Document 02/04/21 09:45 AW (Rec: 02/04/21 12:49 AW [email or web address]) Posture Evaluation Position Standing Head/C-Spine Posture Forward Head L-Spine Posture Flattened Weight Distribution Weight Shifted Left Palpation Assessment Location BLE Palpation Findings Soft Tissue Tightness Palpation Details Reduced HS length in supine 90 /90 - lacking ~30 degrees BLE. Internal rotation is severely limited bilaterally in supine . External rotation moderately limited. lumbar paraspinals Palpation Details Increased tone right lumbar paraspinals at levels of incisions. Skin Assessment Incisional Assessment Incision Appearance/Comments Healing incisions along L1-2 and L4-5. Slightly reduced scar mobility PT-OP-K Range of Motion Start: 02/03/21 15:37 Freq: Status: Active Protocol: Document 02/04/21 09:45 AW (Rec: 02/05/21 10:06 AW [email or web address]) Lumbar Spine Range of Motion Lumbar Spine Active Degrees Testing Position Standing Flexion 65 Extension 16 ROM Limitations Pain Comments Painful right rotation especially in sitting. Pt is able to laterally flex with fingertips to knee joint line bilaterally without c/o pain. Hip Goniometric Range of Motion Hip ROM Limitations Hip ROM Limitations Soft Tissue Tightness Comments Internal rotation in B hips is severely limited; external rotation moderately limited. In supine, remaining hip AROM and PROM WNL Knee Goniometric Range of Motion Knee ROM Limitations Knee ROM Limitations Soft Tissue Tightness Comments In supine 90/90, pt lacks 30 degrees knee extension bilaterally. Ankle and Foot Goniometric Range of Motion Ankle and Foot bilat Ankle/Foot ROM WFL No Comments Right ankle DF AROM limited ( less than neutral). Ankle and Foot ROM Limitations ROM Limitations Muscle Weakness Comments Pt reports nerve injury secondary to fracture >30 years ago which resulted in functional right foot drop. PT-OP-M Strength Start: 02/03/21 15:37 Freq: Status: Active Protocol: Document 02/04/21 09:45 AW (Rec: 02/05/21 10:06 AW [email or web address]) Hip Strength Hip Manual Muscle Testing bilat Flexion (L2) 4+ Good+ Extension (S1) 4 Good Abduction 4+ Good+ Knee Strength Knee Manual Muscle Testing bilat Flexion (S2) 5 Normal Extension (L3) 5 Normal Ankle/Foot Strength Ankle and Foot Manual Muscle Testing Right Dorsiflexion (L4) 3- Fair- Plantarflexion (S1) 5 Normal Left Dorsiflexion (L4) 5 Normal Plantarflexion (S1) 5 Normal Comments Pt performs 20 single leg heel raises right and left without evidence of imbalance. Toe Strength Toe Manual Muscle Testing Right Great Toe Flexion 4 Good Extension 4 Good Comments Left great toe 5/5 PT-OP-Q Treatments Start: 02/03/21 15:37 Freq: Status: Active Protocol: Document 02/25/21 09:59 AW (Rec: 02/25/21 09:49 AW [id number]) Cardio Equipment Elliptical Duration (Minutes) 5 Resistance 5 Other able to carry on conversation Therapeutic Exercises Supine Exercises supine posture press Supine Exercise Name supine posture press Reps/Minutes 5SH x 10 Comments cued 60% 1RM ITB stretch Supine Exercise Name ITB stretch Equipment Used legs crossed Reps/Minutes 30 SH x 2 Comments pt unable to cross knee/knee; dc'ed hip flexor stretch Supine Exercise Name hip flexor stretch Side bilateral Reps/Minutes 1 min hold x 2 Comments Carlos test position - HEP piriformis stretch Supine Exercise Name piriformis stretch - HEP review Side bilateral Comments opp foot planted Standing Exercises lateral band walk Standing Exercise Name lateral band walk Side bilateral Resistance yellow loop at ankles Reps/Minutes 20' lap x 2 Comments HEP SL stance Standing Exercise Name SL stance Side bilateral Comments mirror for feedback; HEP resisted row Standing Exercise Name resisted row Side bilateral Resistance TB1 Reps/Minutes x12 Comments cues for scapular control paloff press Standing Exercise Name paloff press Side bilateral Resistance TB1 Comments clinic only; no irritation today PT-OP-R Modalities Start: 02/03/21 15:37 Freq: Status: Active Protocol: Document 02/25/21 09:59 AW (Rec: 02/25/21 10:30 AW [id number]) Hot Pack/Cold Pack Treatment Hot Pack Location lumbar Patient Position Hooklying Treatment Duration (minutes) 15 Patient Tolerance Good PT-OP-S Aquatic Treatment Start: 02/03/21 15:37 Freq: Status: Active Protocol: Document 02/23/21 13:50 LJ (Rec: 02/23/21 14:23 LJ [email or web address]) Aquatics Treatment Pool Entry/Exit Pool Entry/Exit Method Stairs Assistance Independent Water Walking circumduction Water Level Chest Level Level of Assistance Verbal Cues backward lunge walking Water Level Chest Level Level of Assistance Verbal Cues Comments emphasis on full knee extension when standing Lunge Walk Water Level Chest Level Level of Assistance Verbal Cues Comments emphasis on full knee extension when standing walk with drag Water Level Chest Level Level of Assistance Verbal Cues Comments UE's at side, palms forward, neutral alignment forward, bck, side, march Water Level Chest Level Level of Assistance Verbal Cues Comments cues for core stab, neutral alignment Lower Extremity Exercises kick back Details at wall Body Position Standing Water Level Waist Level Reps/Duration 10 x2 B Comments emphasis on abdominal bracing knee extension Details at wall Body Position Standing Water Level Waist Level Reps/Duration 10 x2 B hip ab/ad Body Position Standing Water Level Waist Level Reps/Duration 10 x2 B hip flex/ext Body Position Standing Water Level Waist Level Reps/Duration 10 x2 B Lower Extremity Stretches hip flexors Details resting foot on table Body Position Standing Comments therapist assist quads Details facing wall Body Position Standing Comments therapist assist HS, ITB Details back to pool wall Body Position Standing Equipment Small Noodle Upper Extremity Exercises hor ab/ad, flex/ext Details richy and unil Body Position Standing Water Level Chest Level Reps/Duration 10x 2 ea Comments with emphasis on core stab Balance plyometric pistol squats Body Position Standing Water Level Chest Level Reps/Duration 10 x2 B Callaway Activities Callaway Activities Bicycle,Bicycle Backwards, Running Equipment belt, lg BBs PT-OP-T Assessment and Plan Start: 02/03/21 15:37 Freq: Status: Active Protocol: Document 02/25/21 09:59 AW (Rec: 02/25/21 10:30 AW [id number]) Physical Therapy Assessment Impairments Impairments Balance,Functional Mobility, Gait,Pain,Posture,ROM, Sensation,Soft Tissue Mobility ,Strength Goals Four Impairment balance Short Term Goal (STG) Pt will rise on single leg ( right and left) from 19 high surface without evidence of imbalance. STG Duration 03/04/21 Snf Goal (LTG) Pt will rise on single leg ( right and left) from 18 high surface five times without evidence of imbalance as a measure of improved single leg strength and stability. LTG Duration 04/10/21 Three Impairment MANUEL score 26 [place] Goal (LTG) Pt will improve ODS score from 26 to 15 or less as a measure of improved daily function. LTG Duration 04/10/21 Two Impairment impaired sleep Snf Goal (LTG) Pt will sleep at least 7 uninterrupted hours for 5/7 nights to promote pain management. LTG Duration 04/10/21 One Impairment lacks appropriate HEP Short Term Goal (STG) Pt will be instructed in HEP to address soft tissue restrictions and lumbar mobility. STG Duration 03/04/21 Snf Goal (LTG) Pt will be independent with HEP to address BLE tissue length, strength, and balance for improved ability to self- manage pain LTG Duration 04/10/21 Assessment Summary Assessment Pt benefits from postural education with standing exercises. Also educated pt on exercise dosing as pt tends to overdo. Physical Therapy Plan Frequency and Duration Frequency of Treatment 1-2x/week Duration of Treatment 2 months Plan of Care Start Date 02/04/21 Plan of Care End Date 04/10/21 Therapeutic Interventions Therapeutic Interventions Aquatic Therapy,Balance Training,Gait Training,Home Exercise Program,Manual Therapy,Neuromuscular Re- education,Patient/Caregiver Education,Self-Care/Home Management,Sensory Integration ,Soft Tissue Mobilization, Therapeutic Activities, Therapeutic Exercises Modalities Cold Pack/Ice Massage,Hot Packs Next Visit Focus/Plan Next Note Type Treatment Note Next Visit Plan continue hip mobility exercises, progress hip hinge, initiate standing hip strength
--- NOTE | 2021-03-04 09:04 | PT.OTN ---
Current Diagnoses Foot drop, right foot (03/04/21) Spondylolisthesis, lumbar region (03/04/21) Other spondylosis with radiculopathy, lumbar region (03/04/21) Spinal stenosis, lumbar region with neurogenic claudication (03/04/21) Other intervertebral disc displacement, lumbar region (03/04/21) Radiculopathy, lumbar region (03/04/21) Difficulty in walking, not elsewhere classified (03/04/21) Other specified postprocedural states (03/04/21) Physical Therapy Treatment Note PT-OP-A Visit Information Start: 02/03/21 15:37 Freq: Status: Active Protocol: Document 03/04/21 08:18 (Rec: 03/04/21 09:04 [id number]) Out-Patient Physical Therapy Visit Information Visit Information Visit Type Treatment Note Visit Start Time 08:18 Visit Stop Time 09:11 Total Visit Minutes 53 Visit Number 8 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 By his own report, he has always played hard participating in snow and water skiing, multiple sports. He has had right rotator cuff tear, right tibia/fibula fractures and nerve damage at age 30 resulting in foot drop, right osteotomy. MRI shows multiple chronic healed fractures of unknown age. In 2018, pt spent a long day painting a ceiling , stepped off a ladder and noticed numbness in his left leg. Pain evolved into burning sensation down both legs in sciatic distribution. He was treated with PT and had a few injections with minimal relief . He consulted a neurosurgeon at [facility] in fall 2018, had PT again and another injection (relief for only two days). He has also tried accupuncure and chiropractic. He used a self-guided exercise program from his insurance ([employer] from [facility]) very faithfully for nearly a year. Ultimately, he elected surgery (L1-2 and L4-5 laminectomy). Since surgery Since surgery, sciatic nerve pain BLE is improved. He does note some residual left hip burning pain but nothing down the leg. He reports LBP (R more affected than left). Ice and ibuprofen are helpful. Pt historically slept on his stomach but turned into a back and side sleeper since his injury. He reports muscle spasm between shoulder blades and in hamstrings (left more) which interrupt his sleep. Prior Treatments and Tests 08/20/20 L/S MRI - 1. Multilevel degenerative disc and facet disease, as well as ligamentum flavum hypertrophy and epidural lipomatosis. 2. Multilevel canal stenoses, worst at L4-L5, where there is severe canal stenosis. Moderate to severe canal stenosis at L1-L2. 3. Multilevel foraminal stenoses, worst at L2-L3, L3- L4, L4-L5, and L5-S1, where there are moderate foraminal stenoses as described above. 4. Right lateral recess stenosis at L1-L2 associated with right L2 nerve root compression. Recommend correlation with clinical symptoms to ascertain relevance of this finding. 12/12/20 - L1-2 L4-5 decompression Treatment Goals Patient/Caregiver Goals Patient hoping aquatic therapy can help him recover and return to many of his prior activities. Reports besides PT exercises his doctor gave him a list of exercises to do at home including 1 min regular plank which is very hard for him to do. PT-OP-C Subjective Start: 02/03/21 15:37 Freq: Status: Active Protocol: Document 03/04/21 08:18 HH (Rec: 03/04/21 09:04 HH [id number]) OP-PT Subjective Patient Comments Patient Comments I feeling great about getting ROM on my hip flexors and my hip piriformis, and same as my hamstrings. I need to get my strength better Patient Reported Progress Improving PT-OP-D Balance Start: 02/03/21 15:37 Freq: Status: Active Protocol: Document 02/04/21 09:45 AW (Rec: 02/04/21 11:09 AW [email or web address]) Balance Tests Single Limb Standing Single Limb- Right 10 seconds unsteady, reaching for support Single Limb- Left 25 seconds steady PT-OP-E Functional Tests Start: 02/03/21 15:37 Freq: Status: Active Protocol: Document 02/04/21 09:45 AW (Rec: 02/04/21 11:10 AW [email or web address]) Functional Tests Single Leg Squat Test Comment LLE able to stand steadily from 18 mat; RLE unsteady from 22 mat PT-OP-H Neuro Start: 02/03/21 15:37 Freq: Status: Active Protocol: Document 02/04/21 09:45 AW (Rec: 02/04/21 12:49 AW [email or web address]) Sensation Evaluation Gross Sensation Gross Sensation Right LE Impaired Sensation Description Numbness Comments Summary Comments Pt reports chronic dull sensation right lateral and anterior shank and dorsal foot . Deep Tendon Reflex & Clonus Assessment Deep Tendon Reflex Bilateral Achilles Deep Tendon Reflex 1+ Diminished Bilateral Patellar Deep Tendon Reflex 1+ Diminished PT-OP-J Posture/Palpation/Skin Start: 02/03/21 15:37 Freq: Status: Active Protocol: Document 02/04/21 09:45 AW (Rec: 02/04/21 12:49 AW [email or web address]) Posture Evaluation Position Standing Head/C-Spine Posture Forward Head L-Spine Posture Flattened Weight Distribution Weight Shifted Left Palpation Assessment Location BLE Palpation Findings Soft Tissue Tightness Palpation Details Reduced HS length in supine 90 /90 - lacking ~30 degrees BLE. Internal rotation is severely limited bilaterally in supine . External rotation moderately limited. lumbar paraspinals Palpation Details Increased tone right lumbar paraspinals at levels of incisions. Skin Assessment Incisional Assessment Incision Appearance/Comments Healing incisions along L1-2 and L4-5. Slightly reduced scar mobility PT-OP-K Range of Motion Start: 02/03/21 15:37 Freq: Status: Active Protocol: Document 02/04/21 09:45 AW (Rec: 02/05/21 10:06 AW [email or web address]) Lumbar Spine Range of Motion Lumbar Spine Active Degrees Testing Position Standing Flexion 65 Extension 16 ROM Limitations Pain Comments Painful right rotation especially in sitting. Pt is able to laterally flex with fingertips to knee joint line bilaterally without c/o pain. Hip Goniometric Range of Motion Hip ROM Limitations Hip ROM Limitations Soft Tissue Tightness Comments Internal rotation in B hips is severely limited; external rotation moderately limited. In supine, remaining hip AROM and PROM WNL Knee Goniometric Range of Motion Knee ROM Limitations Knee ROM Limitations Soft Tissue Tightness Comments In supine 90/90, pt lacks 30 degrees knee extension bilaterally. Ankle and Foot Goniometric Range of Motion Ankle and Foot bilat Ankle/Foot ROM WFL No Comments Right ankle DF AROM limited ( less than neutral). Ankle and Foot ROM Limitations ROM Limitations Muscle Weakness Comments Pt reports nerve injury secondary to fracture >30 years ago which resulted in functional right foot drop. PT-OP-M Strength Start: 02/03/21 15:37 Freq: Status: Active Protocol: Document 02/04/21 09:45 AW (Rec: 02/05/21 10:06 AW [email or web address]) Hip Strength Hip Manual Muscle Testing bilat Flexion (L2) 4+ Good+ Extension (S1) 4 Good Abduction 4+ Good+ Knee Strength Knee Manual Muscle Testing bilat Flexion (S2) 5 Normal Extension (L3) 5 Normal Ankle/Foot Strength Ankle and Foot Manual Muscle Testing Right Dorsiflexion (L4) 3- Fair- Plantarflexion (S1) 5 Normal Left Dorsiflexion (L4) 5 Normal Plantarflexion (S1) 5 Normal Comments Pt performs 20 single leg heel raises right and left without evidence of imbalance. Toe Strength Toe Manual Muscle Testing Right Great Toe Flexion 4 Good Extension 4 Good Comments Left great toe 5/5 PT-OP-Q Treatments Start: 02/03/21 15:37 Freq: Status: Active Protocol: Document 03/04/21 08:18 HH (Rec: 03/04/21 09:04 [id number]) Cardio Equipment Bicycle (Upright) Duration (Minutes) 5 Resistance 5 Therapeutic Exercises Supine Exercises SLR Side bilateral Reps/Minutes 10 x2 Comments cues on PPT hip flexor stretch Supine Exercise Name hip flexor stretch Side bilateral Reps/Minutes 1 min hold x 2 Comments Carlos test position - HEP piriformis stretch Supine Exercise Name piriformis stretch - HEP review Side bilateral Comments opp foot planted Prone Exercises bird dog Prone Exercise Name motor control on glute activation Reps/Minutes 10x2 Comments cues on PPT, hip extension Standing Exercises resisted row Standing Exercise Name resisted row Side bilateral Resistance TB1 Reps/Minutes x12 Comments cues for scapular control paloff press Standing Exercise Name paloff press Side bilateral Resistance TB1 Comments clinic only; no irritation today Manual Therapy Treatment Soft Tissue Mobilization scar mob Mobilization Type Rolling Intensity/Depth Superficial Body Position Prone PT-OP-R Modalities Start: 02/03/21 15:37 Freq: Status: Active Protocol: Document 03/04/21 08:18 HH (Rec: 03/04/21 09:04 [id number]) Hot Pack/Cold Pack Treatment Hot Pack Location lumbar Patient Position Hooklying Treatment Duration (minutes) 15 Patient Tolerance Good PT-OP-S Aquatic Treatment Start: 02/03/21 15:37 Freq: Status: Active Protocol: Document 02/23/21 13:50 LJ (Rec: 02/23/21 14:23 LJ [email or web address]) Aquatics Treatment Pool Entry/Exit Pool Entry/Exit Method Stairs Assistance Independent Water Walking circumduction Water Level Chest Level Level of Assistance Verbal Cues backward lunge walking Water Level Chest Level Level of Assistance Verbal Cues Comments emphasis on full knee extension when standing Lunge Walk Water Level Chest Level Level of Assistance Verbal Cues Comments emphasis on full knee extension when standing walk with drag Water Level Chest Level Level of Assistance Verbal Cues Comments UE's at side, palms forward, neutral alignment forward, bck, side, march Water Level Chest Level Level of Assistance Verbal Cues Comments cues for core stab, neutral alignment Lower Extremity Exercises kick back Details at wall Body Position Standing Water Level Waist Level Reps/Duration 10 x2 B Comments emphasis on abdominal bracing knee extension Details at wall Body Position Standing Water Level Waist Level Reps/Duration 10 x2 B hip ab/ad Body Position Standing Water Level Waist Level Reps/Duration 10 x2 B hip flex/ext Body Position Standing Water Level Waist Level Reps/Duration 10 x2 B Lower Extremity Stretches hip flexors Details resting foot on table Body Position Standing Comments therapist assist quads Details facing wall Body Position Standing Comments therapist assist HS, ITB Details back to pool wall Body Position Standing Equipment Small Noodle Upper Extremity Exercises hor ab/ad, flex/ext Details richy and unil Body Position Standing Water Level Chest Level Reps/Duration 10x 2 ea Comments with emphasis on core stab Balance plyometric pistol squats Body Position Standing Water Level Chest Level Reps/Duration 10 x2 B [place] Activities [place] Activities Bicycle,Bicycle Backwards, Running Equipment belt, lg BBs PT-OP-T Assessment and Plan Start: 02/03/21 15:37 Freq: Status: Active Protocol: Document 03/04/21 08:18 HH (Rec: 03/04/21 09:04 HH [id number]) Physical Therapy Assessment Goals Four Impairment balance Short Term Goal (STG) Pt will rise on single leg ( right and left) from 19 high surface without evidence of imbalance. STG Duration 03/04/21 Halfway Goal (LTG) Pt will rise on single leg ( right and left) from 18 high surface five times without evidence of imbalance as a measure of improved single leg strength and stability. LTG Duration 04/10/21 Three Impairment MANUEL score 26 Halfway Goal (LTG) Pt will improve ODS score from 26 to 15 or less as a measure of improved daily function. LTG Duration 04/10/21 Two Impairment impaired sleep Halfway Goal (LTG) Pt will sleep at least 7 uninterrupted hours for 5/7 nights to promote pain management. LTG Duration 04/10/21 One Impairment lacks appropriate HEP Short Term Goal (STG) Pt will be instructed in HEP to address soft tissue restrictions and lumbar mobility. STG Duration 03/04/21 Claims Adjuster Supervisor Goal (LTG) Pt will be independent with HEP to address BLE tissue length, strength, and balance for improved ability to self- manage pain LTG Duration 04/10/21 Assessment Summary Assessment pt reports he is progressively getting better regarding his hip ROM and overall strength. This session focused on trunk stabilization and scar mob. Pt reports he still have pain while reaching down to clean after toileting. I noticed pt has significant scar tightness and his pain significant improved after performing rolling mobilization. Physical Therapy Plan Frequency and Duration Frequency of Treatment 1-2x/week Duration of Treatment 2 months Plan of Care Start Date 02/04/21 Plan of Care End Date 04/10/21 Therapeutic Interventions Therapeutic Interventions Aquatic Therapy,Balance Training,Gait Training,Home Exercise Program,Manual Therapy,Neuromuscular Re- education,Patient/Caregiver Education,Self-Care/Home Management,Sensory Integration ,Soft Tissue Mobilization, Therapeutic Activities, Therapeutic Exercises Modalities Cold Pack/Ice Massage,Hot Packs Next Visit Focus/Plan Next Note Type Treatment Note Next Visit Plan continue hip mobility exercises, progress hip hinge, initiate standing hip strength
--- NOTE | 2021-03-06 15:26 | PT.OTN ---
Current Diagnoses Foot drop, right foot (03/06/21) Spondylolisthesis, lumbar region (03/06/21) Other spondylosis with radiculopathy, lumbar region (03/06/21) Spinal stenosis, lumbar region with neurogenic claudication (03/06/21) Other intervertebral disc displacement, lumbar region (03/06/21) Radiculopathy, lumbar region (03/06/21) Difficulty in walking, not elsewhere classified (03/06/21) Other specified postprocedural states (03/06/21) Physical Therapy Treatment Note PT-OP-A Visit Information Start: 02/03/21 15:37 Freq: Status: Active Protocol: Document 03/06/21 15:09 LJ (Rec: 03/06/21 15:26 LJ [id number]) Out-Patient Physical Therapy Visit Information Visit Information Visit Type Aquatic Treatment Note Visit Start Time 11:45 Visit Stop Time 12:30 Total Visit Minutes 45 Visit Number 9 Number of WINCH DRIVER Visits 1 PT-OP-B Current Condition Start: 02/03/21 15:37 Freq: Status: Active Protocol: Document 02/09/21 16:53 SAK (Rec: 02/09/21 17:02 SAK [id number]) Current Condition History of Current Condition Onset Date October 2017 Current Complaints back pain s/p back surgery; chronic right foot drop History of Current Condition Pt has a lengthy history of orthopedic injuries. By his own report, he has always played hard participating in snow and water skiing, multiple sports. He has had right rotator cuff tear, right tibia/fibula fractures and nerve damage at age 30 resulting in foot drop, right osteotomy. MRI shows multiple chronic healed fractures of unknown age. In 2018, pt spent a long day painting a ceiling , stepped off a ladder and noticed numbness in his left leg. Pain evolved into burning sensation down both legs in sciatic distribution. He was treated with PT and had a few injections with minimal relief . He consulted a neurosurgeon at [facility] in fall 2018, had PT again and another injection (relief for only two days). He has also tried accupuncure and chiropractic. He used a self-guided exercise program from his insurance ([employer] from [facility]) very faithfully for nearly a year. Ultimately, he elected surgery (L1-2 and L4-5 laminectomy). Since surgery Since surgery, sciatic nerve pain BLE is improved. He does note some residual left hip burning pain but nothing down the leg. He reports LBP (R more affected than left). Ice and ibuprofen are helpful. Pt historically slept on his stomach but turned into a back and side sleeper since his injury. He reports muscle spasm between shoulder blades and in hamstrings (left more) which interrupt his sleep. Prior Treatments and Tests 08/20/20 L/S MRI - 1. Multilevel degenerative disc and facet disease, as well as ligamentum flavum hypertrophy and epidural lipomatosis. 2. Multilevel canal stenoses, worst at L4-L5, where there is severe canal stenosis. Moderate to severe canal stenosis at L1-L2. 3. Multilevel foraminal stenoses, worst at L2-L3, L3- L4, L4-L5, and L5-S1, where there are moderate foraminal stenoses as described above. 4. Right lateral recess stenosis at L1-L2 associated with right L2 nerve root compression. Recommend correlation with clinical symptoms to ascertain relevance of this finding. 12/12/20 - L1-2 L4-5 decompression Treatment Goals Patient/Caregiver Goals Patient hoping aquatic therapy can help him recover and return to many of his prior activities. Reports besides PT exercises his doctor gave him a list of exercises to do at home including 1 min regular plank which is very hard for him to do. PT-OP-C Subjective Start: 02/03/21 15:37 Freq: Status: Active Protocol: Document 03/06/21 15:09 LJ (Rec: 03/06/21 15:26 LJ [id number]) OP-PT Subjective Patient Comments Patient Comments Pt reports his back is a little sore after standing all day yesterday working in his friend's shop. States his hip flexors are still tight PT-OP-D Balance Start: 02/03/21 15:37 Freq: Status: Active Protocol: Document 02/04/21 09:45 AW (Rec: 02/04/21 11:09 AW [email or web address]) Balance Tests Single Limb Standing Single Limb- Right 10 seconds unsteady, reaching for support Single Limb- Left 25 seconds steady PT-OP-E Functional Tests Start: 02/03/21 15:37 Freq: Status: Active Protocol: Document 02/04/21 09:45 AW (Rec: 02/04/21 11:10 AW [email or web address]) Functional Tests Single Leg Squat Test Comment LLE able to stand steadily from 18 mat; RLE unsteady from 22 mat PT-OP-H Neuro Start: 02/03/21 15:37 Freq: Status: Active Protocol: Document 02/04/21 09:45 AW (Rec: 02/04/21 12:49 AW [id number]) Sensation Evaluation Gross Sensation Gross Sensation Right LE Impaired Sensation Description Numbness Comments Summary Comments Pt reports chronic dull sensation right lateral and anterior shank and dorsal foot . Deep Tendon Reflex & Clonus Assessment Deep Tendon Reflex Bilateral Achilles Deep Tendon Reflex 1+ Diminished Bilateral Patellar Deep Tendon Reflex 1+ Diminished PT-OP-J Posture/Palpation/Skin Start: 02/03/21 15:37 Freq: Status: Active Protocol: Document 02/04/21 09:45 AW (Rec: 02/04/21 12:49 AW [email or web address]) Posture Evaluation Position Standing Head/C-Spine Posture Forward Head L-Spine Posture Flattened Weight Distribution Weight Shifted Left Palpation Assessment Location BLE Palpation Findings Soft Tissue Tightness Palpation Details Reduced HS length in supine 90 /90 - lacking ~30 degrees BLE. Internal rotation is severely limited bilaterally in supine . External rotation moderately limited. lumbar paraspinals Palpation Details Increased tone right lumbar paraspinals at levels of incisions. Skin Assessment Incisional Assessment Incision Appearance/Comments Healing incisions along L1-2 and L4-5. Slightly reduced scar mobility PT-OP-K Range of Motion Start: 02/03/21 15:37 Freq: Status: Active Protocol: Document 02/04/21 09:45 AW (Rec: 02/05/21 10:06 AW [email or web address]) Lumbar Spine Range of Motion Lumbar Spine Active Degrees Testing Position Standing Flexion 65 Extension 16 ROM Limitations Pain Comments Painful right rotation especially in sitting. Pt is able to laterally flex with fingertips to knee joint line bilaterally without c/o pain. Hip Goniometric Range of Motion Hip ROM Limitations Hip ROM Limitations Soft Tissue Tightness Comments Internal rotation in B hips is severely limited; external rotation moderately limited. In supine, remaining hip AROM and PROM WNL Knee Goniometric Range of Motion Knee ROM Limitations Knee ROM Limitations Soft Tissue Tightness Comments In supine 90/90, pt lacks 30 degrees knee extension bilaterally. Ankle and Foot Goniometric Range of Motion Ankle and Foot bilat Ankle/Foot ROM WFL No Comments Right ankle DF AROM limited ( less than neutral). Ankle and Foot ROM Limitations ROM Limitations Muscle Weakness Comments Pt reports nerve injury secondary to fracture >30 years ago which resulted in functional right foot drop. PT-OP-M Strength Start: 02/03/21 15:37 Freq: Status: Active Protocol: Document 02/04/21 09:45 AW (Rec: 02/05/21 10:06 AW [email or web address]) Hip Strength Hip Manual Muscle Testing bilat Flexion (L2) 4+ Good+ Extension (S1) 4 Good Abduction 4+ Good+ Knee Strength Knee Manual Muscle Testing bilat Flexion (S2) 5 Normal Extension (L3) 5 Normal Ankle/Foot Strength Ankle and Foot Manual Muscle Testing Right Dorsiflexion (L4) 3- Fair- Plantarflexion (S1) 5 Normal Left Dorsiflexion (L4) 5 Normal Plantarflexion (S1) 5 Normal Comments Pt performs 20 single leg heel raises right and left without evidence of imbalance. Toe Strength Toe Manual Muscle Testing Right Great Toe Flexion 4 Good Extension 4 Good Comments Left great toe 5/5 PT-OP-Q Treatments Start: 02/03/21 15:37 Freq: Status: Active Protocol: Document 03/04/21 08:18 HH (Rec: 03/04/21 09:04 [id number]) Cardio Equipment Bicycle (Upright) Duration (Minutes) 5 Resistance 5 Therapeutic Exercises Supine Exercises SLR Side bilateral Reps/Minutes 10 x2 Comments cues on PPT hip flexor stretch Supine Exercise Name hip flexor stretch Side bilateral Reps/Minutes 1 min hold x 2 Comments Carlos test position - HEP piriformis stretch Supine Exercise Name piriformis stretch - HEP review Side bilateral Comments opp foot planted Prone Exercises bird dog Prone Exercise Name motor control on glute activation Reps/Minutes 10x2 Comments cues on PPT, hip extension Standing Exercises resisted row Standing Exercise Name resisted row Side bilateral Resistance TB1 Reps/Minutes x12 Comments cues for scapular control paloff press Standing Exercise Name paloff press Side bilateral Resistance TB1 Comments clinic only; no irritation today Manual Therapy Treatment Soft Tissue Mobilization scar mob Mobilization Type Rolling Intensity/Depth Superficial Body Position Prone PT-OP-R Modalities Start: 02/03/21 15:37 Freq: Status: Active Protocol: Document 03/04/21 08:18 HH (Rec: 03/04/21 09:04 [id number]) Hot Pack/Cold Pack Treatment Hot Pack Location lumbar Patient Position Hooklying Treatment Duration (minutes) 15 Patient Tolerance Good PT-OP-S Aquatic Treatment Start: 02/03/21 15:37 Freq: Status: Active Protocol: Document 03/06/21 15:09 RADHA (Rec: 03/06/21 15:26 [id number]) Aquatics Treatment Pool Entry/Exit Pool Entry/Exit Method Stairs Assistance Independent Water Walking circumduction Water Level Chest Level Walking Equipment Ankle Floats Level of Assistance Verbal Cues backward lunge walking Water Level Chest Level Level of Assistance Verbal Cues Comments emphasis on full knee extension when standing Lunge Walk Water Level Chest Level Level of Assistance Verbal Cues Comments emphasis on full knee extension when standing forward, bck, , june Water Level Chest Level Walking Equipment Ankle Floats Level of Assistance Verbal Cues Comments cues for core stab, neutral alignment Lower Extremity Exercises HS curls Body Position Standing Water Level Waist Level Equipment Ankle Floats Reps/Duration 10 x 2 B knee extension Details at wall Body Position Standing Water Level Waist Level Equipment Ankle Floats Reps/Duration 10 x2 B hip ab/ad Body Position Standing Water Level Waist Level Equipment Ankle Floats Reps/Duration 10 x2 B hip flex/ext Body Position Standing Water Level Waist Level Equipment Ankle Floats Reps/Duration 10 x2 B Lower Extremity Stretches gastroc, soleus Details facing wall Body Position Standing Reps/Duration 30 sec x 21 B hip flexors Details resting foot on stair Body Position Standing Comments therapist assist quads Details facing wall Body Position Standing Comments therapist assist HS, ITB Details back to pool wall Body Position Standing Equipment Small Noodle Upper Extremity Exercises hor ab/ad, flex/ext Details richy and unil Body Position Standing Water Level Chest Level Reps/Duration 10x 2 ea Comments with emphasis on core stab Balance plyometric pistol squats Body Position Standing Water Level Chest Level Reps/Duration 10 x2 B [place] Activities [place] Activities Bicycle,Running Other Activities T hang lateral pull-downs pendulums 3 way crunches Equipment ankle floats Duration 12 min PT-OP-T Assessment and Plan Start: 02/03/21 15:37 Freq: Status: Active Protocol: Document 03/06/21 15:09 RADHA (Rec: 03/06/21 15:26 [id number]) Physical Therapy Assessment Rehab Potential Rehabilitation Potential Excellent Evaluation Complexity Number of Personal Factors/Comorbidities 1-2 Number of Body Systems Impaired 3 Clinical Presentation at Evaluation Evolving Impairments Impairments Balance,Functional Mobility, Gait,Pain,Posture,ROM, Sensation,Soft Tissue Mobility ,Strength Goals Four Impairment balance Short Term Goal (STG) Pt will rise on single leg ( right and left) from 19 high surface without evidence of imbalance. STG Duration 03/04/21 Package Collector Goal (LTG) Pt will rise on single leg ( right and left) from 18 high surface five times without evidence of imbalance as a measure of improved single leg strength and stability. LTG Duration 04/10/21 Three Impairment MANUEL score 26 Package Collector Goal (LTG) Pt will improve ODS score from 26 to 15 or less as a measure of improved daily function. LTG Duration 04/10/21 Two Impairment impaired sleep Package Collector Goal (LTG) Pt will sleep at least 7 uninterrupted hours for 5/7 nights to promote pain management. LTG Duration 04/10/21 One Impairment lacks appropriate HEP Short Term Goal (STG) Pt will be instructed in HEP to address soft tissue restrictions and lumbar mobility. STG Duration 03/04/21 Package Collector Goal (LTG) Pt will be independent with HEP to address BLE tissue length, strength, and balance for improved ability to self- manage pain LTG Duration 04/10/21 Assessment Summary Assessment Pt did well with challenging exercises and the addition of ankle floats. Improvement noted with balance and core stabilizatin and strength. Continue progressing exercises as tolerated to improve core strength, flexibility, and balance. Physical Therapy Plan Frequency and Duration Frequency of Treatment 1-2x/week Duration of Treatment 2 months Plan of Care Start Date 02/04/21 Plan of Care End Date 04/10/21 Therapeutic Interventions Therapeutic Interventions Aquatic Therapy,Balance Training,Gait Training,Home Exercise Program,Manual Therapy,Neuromuscular Re- education,Patient/Caregiver Education,Self-Care/Home Management,Sensory Integration ,Soft Tissue Mobilization, Therapeutic Activities, Therapeutic Exercises Modalities Cold Pack/Ice Massage,Hot Packs Next Visit Focus/Plan Next Note Type Treatment Note Next Visit Plan continue hip mobility exercises, progress hip hinge, initiate standing hip strength
--- NOTE | 2021-03-10 14:02 | PT.OTN ---
Current Diagnoses Foot drop, right foot (03/10/21) Spondylolisthesis, lumbar region (03/10/21) Other spondylosis with radiculopathy, lumbar region (03/10/21) Spinal stenosis, lumbar region with neurogenic claudication (03/10/21) Other intervertebral disc displacement, lumbar region (03/10/21) Radiculopathy, lumbar region (03/10/21) Difficulty in walking, not elsewhere classified (03/10/21) Other specified postprocedural states (03/10/21) Physical Therapy Treatment Note PT-OP-A Visit Information Start: 02/03/21 15:37 Freq: Status: Active Protocol: Document 03/10/21 13:45 AW (Rec: 03/10/21 13:58 AW [id number]) Out-Patient Physical Therapy Visit Information Visit Information Visit Type Treatment Note Visit Start Time 13:00 Visit Stop Time 13:45 Total Visit Minutes 45 Visit Number 10 Number of DISPOSAL OPERATOR Visits 0 PT-OP-B Current Condition Start: 02/03/21 15:37 Freq: Status: Active Protocol: Document 02/09/21 16:53 SAK (Rec: 02/09/21 17:02 SAK [id number]) Current Condition History of Current Condition Onset Date October 2017 Current Complaints back pain s/p back surgery; chronic right foot drop History of Current Condition Pt has a lengthy history of orthopedic injuries. By his own report, he has always played hard participating in snow and water skiing, multiple sports. He has had right rotator cuff tear, right tibia/fibula fractures and nerve damage at age 30 resulting in foot drop, right osteotomy. MRI shows multiple chronic healed fractures of unknown age. In 2018, pt spent a long day painting a ceiling , stepped off a ladder and noticed numbness in his left leg. Pain evolved into burning sensation down both legs in sciatic distribution. He was treated with PT and had a few injections with minimal relief . He consulted a neurosurgeon at [facility] ([place], [place]) in fall 2018, had PT again and another injection (relief for only two days). He has also tried accupuncure and chiropractic. He used a self-guided exercise program from his insurance ([employer] from [facility]) very faithfully for nearly a year. Ultimately, he elected surgery (L1-2 and L4-5 laminectomy). Since surgery Since surgery, sciatic nerve pain BLE is improved. He does note some residual left hip burning pain but nothing down the leg. He reports LBP (R more affected than left). Ice and ibuprofen are helpful. Pt historically slept on his stomach but turned into a back and side sleeper since his injury. He reports muscle spasm between shoulder blades and in hamstrings (left more) which interrupt his sleep. Prior Treatments and Tests 08/20/20 L/S MRI - 1. Multilevel degenerative disc and facet disease, as well as ligamentum flavum hypertrophy and epidural lipomatosis. 2. Multilevel canal stenoses, worst at L4-L5, where there is severe canal stenosis. Moderate to severe canal stenosis at L1-L2. 3. Multilevel foraminal stenoses, worst at L2-L3, L3- L4, L4-L5, and L5-S1, where there are moderate foraminal stenoses as described above. 4. Right lateral recess stenosis at L1-L2 associated with right L2 nerve root compression. Recommend correlation with clinical symptoms to ascertain relevance of this finding. 12/12/20 - L1-2 L4-5 decompression Treatment Goals Patient/Caregiver Goals Patient hoping aquatic therapy can help him recover and return to many of his prior activities. Reports besides PT exercises his doctor gave him a list of exercises to do at home including 1 min regular plank which is very hard for him to do. PT-OP-C Subjective Start: 02/03/21 15:37 Freq: Status: Active Protocol: Document 03/10/21 13:45 AW (Rec: 03/10/21 13:58 AW [id number]) OP-PT Subjective Patient Comments Patient Comments Follow up with surgeon yesterday went well. Pt is particularly pleased to have been cleared for skiing. Patient Reported Progress Improving PT-OP-D Balance Start: 02/03/21 15:37 Freq: Status: Active Protocol: Document 02/04/21 09:45 AW (Rec: 02/04/21 11:09 AW [email or web address]) Balance Tests Single Limb Standing Single Limb- Right 10 seconds unsteady, reaching for support Single Limb- Left 25 seconds steady PT-OP-E Functional Tests Start: 02/03/21 15:37 Freq: Status: Active Protocol: Document 02/04/21 09:45 AW (Rec: 02/04/21 11:10 AW [email or web address]) Functional Tests Single Leg Squat Test Comment LLE able to stand steadily from 18 mat; RLE unsteady from 22 mat PT-OP-H Neuro Start: 02/03/21 15:37 Freq: Status: Active Protocol: Document 02/04/21 09:45 AW (Rec: 02/04/21 12:49 AW [email or web address]) Sensation Evaluation Gross Sensation Gross Sensation Right LE Impaired Sensation Description Numbness Comments Summary Comments Pt reports chronic dull sensation right lateral and anterior shank and dorsal foot . Deep Tendon Reflex & Clonus Assessment Deep Tendon Reflex Bilateral Achilles Deep Tendon Reflex 1+ Diminished Bilateral Patellar Deep Tendon Reflex 1+ Diminished PT-OP-J Posture/Palpation/Skin Start: 02/03/21 15:37 Freq: Status: Active Protocol: Document 02/04/21 09:45 AW (Rec: 02/04/21 12:49 AW [email or web address]) Posture Evaluation Position Standing Head/C-Spine Posture Forward Head L-Spine Posture Flattened Weight Distribution Weight Shifted Left Palpation Assessment Location BLE Palpation Findings Soft Tissue Tightness Palpation Details Reduced HS length in supine 90 /90 - lacking ~30 degrees BLE. Internal rotation is severely limited bilaterally in supine . External rotation moderately limited. lumbar paraspinals Palpation Details Increased tone right lumbar paraspinals at levels of incisions. Skin Assessment Incisional Assessment Incision Appearance/Comments Healing incisions along L1-2 and L4-5. Slightly reduced scar mobility PT-OP-K Range of Motion Start: 02/03/21 15:37 Freq: Status: Active Protocol: Document 02/04/21 09:45 AW (Rec: 02/05/21 10:06 AW [email or web address]) Lumbar Spine Range of Motion Lumbar Spine Active Degrees Testing Position Standing Flexion 65 Extension 16 ROM Limitations Pain Comments Painful right rotation especially in sitting. Pt is able to laterally flex with fingertips to knee joint line bilaterally without c/o pain. Hip Goniometric Range of Motion Hip ROM Limitations Hip ROM Limitations Soft Tissue Tightness Comments Internal rotation in B hips is severely limited; external rotation moderately limited. In supine, remaining hip AROM and PROM WNL Knee Goniometric Range of Motion Knee ROM Limitations Knee ROM Limitations Soft Tissue Tightness Comments In supine 90/90, pt lacks 30 degrees knee extension bilaterally. Ankle and Foot Goniometric Range of Motion Ankle and Foot bilat Ankle/Foot ROM WFL No Comments Right ankle DF AROM limited ( less than neutral). Ankle and Foot ROM Limitations ROM Limitations Muscle Weakness Comments Pt reports nerve injury secondary to fracture >30 years ago which resulted in functional right foot drop. PT-OP-M Strength Start: 02/03/21 15:37 Freq: Status: Active Protocol: Document 02/04/21 09:45 AW (Rec: 02/05/21 10:06 AW [email or web address]) Hip Strength Hip Manual Muscle Testing bilat Flexion (L2) 4+ Good+ Extension (S1) 4 Good Abduction 4+ Good+ Knee Strength Knee Manual Muscle Testing bilat Flexion (S2) 5 Normal Extension (L3) 5 Normal Ankle/Foot Strength Ankle and Foot Manual Muscle Testing Right Dorsiflexion (L4) 3- Fair- Plantarflexion (S1) 5 Normal Left Dorsiflexion (L4) 5 Normal Plantarflexion (S1) 5 Normal Comments Pt performs 20 single leg heel raises right and left without evidence of imbalance. Toe Strength Toe Manual Muscle Testing Right Great Toe Flexion 4 Good Extension 4 Good Comments Left great toe 5/5 PT-OP-Q Treatments Start: 02/03/21 15:37 Freq: Status: Active Protocol: Document 03/10/21 13:45 AW (Rec: 03/10/21 13:58 AW [id number]) Cardio Equipment Elliptical Duration (Minutes) 5 Resistance 5 Other able to carry on conversation Therapeutic Exercises Supine Exercises bug Supine Exercise Name OA/OL Side bilateral Reps/Minutes x12 Comments HEP SLR Supine Exercise Name improved HS extensibility Side bilateral Reps/Minutes 10 x2 Comments cued controlled movement supine posture press Supine Exercise Name supine posture press Reps/Minutes 5SH x 10 Comments cued 60% 1RM Prone Exercises plank Prone Exercise Name elbows/toes Reps/Minutes 45 sec with good form Comments consider side plank on knees next visit bird dog Prone Exercise Name motor control on glute activation Reps/Minutes 10x2 Comments cues on PPT, decrease pelvic rotation Standing Exercises squat tap Standing Exercise Name squat tap Resistance 10# db held at chest Reps/Minutes 10 x 3 Comments cued cervical neutral; HEP quad stretch Standing Exercise Name quad stretch Equipment Used 24 step; chair in front Comments HEP Manual Therapy Treatment Soft Tissue Mobilization scar mob Mobilization Type Rolling Intensity/Depth Superficial Body Position Prone PT-OP-R Modalities Start: 02/03/21 15:37 Freq: Status: Active Protocol: Document 03/04/21 08:18 HH (Rec: 12/01/21 09:04 HH [id number]) Hot Pack/Cold Pack Treatment Hot Pack Location lumbar Patient Position Hooklying Treatment Duration (minutes) 15 Patient Tolerance Good PT-OP-S Aquatic Treatment Start: 02/03/21 15:37 Freq: Status: Active Protocol: Document 03/06/21 15:09 LJ (Rec: 03/06/21 15:26 LJ [id number]) Aquatics Treatment Pool Entry/Exit Pool Entry/Exit Method Stairs Assistance Independent Water Walking circumduction Water Level Chest Level Walking Equipment Ankle Floats Level of Assistance Verbal Cues backward lunge walking Water Level Chest Level Level of Assistance Verbal Cues Comments emphasis on full knee extension when standing Lunge Walk Water Level Chest Level Level of Assistance Verbal Cues Comments emphasis on full knee extension when standing forward, bck, side, june Water Level Chest Level Walking Equipment Ankle Floats Level of Assistance Verbal Cues Comments cues for core stab, neutral alignment Lower Extremity Exercises HS curls Body Position Standing Water Level Waist Level Equipment Ankle Floats Reps/Duration 10 x 2 B knee extension Details at wall Body Position Standing Water Level Waist Level Equipment Ankle Floats Reps/Duration 10 x2 B hip ab/ad Body Position Standing Water Level Waist Level Equipment Ankle Floats Reps/Duration 10 x2 B hip flex/ext Body Position Standing Water Level Waist Level Equipment Ankle Floats Reps/Duration 10 x2 B Lower Extremity Stretches gastroc, soleus Details facing wall Body Position Standing Reps/Duration 30 sec x 21 B hip flexors Details resting foot on stair Body Position Standing Comments therapist assist quads Details facing wall Body Position Standing Comments therapist assist HS, ITB Details back to pool wall Body Position Standing Equipment Small Noodle Upper Extremity Exercises hor ab/ad, flex/ext Details richy and unil Body Position Standing Water Level Chest Level Reps/Duration 10x 2 ea Comments with emphasis on core stab Balance plyometric pistol squats Body Position Standing Water Level Chest Level Reps/Duration 10 x2 B Roodhouse Activities Roodhouse Activities Bicycle,Running Other Activities T hang lateral pull-downs pendulums [address] way crunches Equipment ankle floats Duration 12 min PT-OP-T Assessment and Plan Start: 02/03/21 15:37 Freq: Status: Active Protocol: Document 03/10/21 13:45 AW (Rec: 03/10/21 14:02 AW [email or web address]) Physical Therapy Assessment Goals Four Impairment balance Short Term Goal (STG) Pt will rise on single leg ( right and left) from 19 high surface without evidence of imbalance. STG Duration 03/04/21 Jail Goal (LTG) Pt will rise on single leg ( right and left) from 18 high surface five times without evidence of imbalance as a measure of improved single leg strength and stability. LTG Duration 04/10/21 Three Impairment MANUEL score 26 Jail Goal (LTG) Pt will improve ODS score from 26 to 15 or less as a measure of improved daily function. LTG Duration 04/10/21 Two Impairment impaired sleep Jail Goal (LTG) Pt will sleep at least 7 uninterrupted hours for 5/7 nights to promote pain management. LTG Duration 04/10/21 One Impairment lacks appropriate HEP Short Term Goal (STG) Pt will be instructed in HEP to address soft tissue restrictions and lumbar mobility. 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 Continued to focus on core stabilization and lifting mechanics. Pt does complain of left shoulder pain in weightbearing positions which may be exacerbated by poor scapular control. Will continue to assess. Physical Therapy Plan Frequency and Duration Frequency of Treatment 1-2x/week Duration of Treatment 2 months Plan of Care Start Date 02/04/21 Plan of Care End Date 04/10/21 Therapeutic Interventions Therapeutic Interventions Aquatic Therapy,Balance Training,Gait Training,Home Exercise Program,Manual Therapy,Neuromuscular Re- education,Patient/Caregiver Education,Self-Care/Home Management,Sensory Integration ,Soft Tissue Mobilization, Therapeutic Activities, Therapeutic Exercises Modalities Cold Pack/Ice Massage,Hot Packs Next Visit Focus/Plan Next Note Type Treatment Note Next Visit Plan continue hip mobility exercises, progress hip hinge, standing hip strength
--- NOTE | 2021-03-11 15:32 | PT.OTN ---
Current Diagnoses Foot drop, right foot (03/10/21) Spondylolisthesis, lumbar region (03/10/21) Other spondylosis with radiculopathy, lumbar region (03/10/21) Spinal stenosis, lumbar region with neurogenic claudication (03/10/21) Other intervertebral disc displacement, lumbar region (03/10/21) Radiculopathy, lumbar region (03/10/21) Difficulty in walking, not elsewhere classified (03/10/21) Other specified postprocedural states (03/10/21) Physical Therapy Treatment Note PT-OP-A Visit Information Start: 02/03/21 15:37 Freq: Status: Active Protocol: Document 03/11/21 15:18 LJ (Rec: 03/11/21 15:32 LJ [id number]) Out-Patient Physical Therapy Visit Information Visit Information Visit Type Aquatic Treatment Note Visit Start Time 11:00 Visit Stop Time 11:45 Total Visit Minutes 45 Visit Number 11 Number of GOLD LEAF LAYER Visits 1 PT-OP-B Current Condition Start: 02/03/21 15:37 Freq: Status: Active Protocol: Document 02/09/21 16:53 SAK (Rec: 02/09/21 17:02 SAK [id number]) Current Condition History of Current Condition Onset Date October 2017 Current Complaints back pain s/p back surgery; chronic right foot drop History of Current Condition Pt has a lengthy history of orthopedic injuries. By his own report, he has always played hard participating in snow and water skiing, multiple sports. He has had right rotator cuff tear, right tibia/fibula fractures and nerve damage at age 30 resulting in foot drop, right osteotomy. MRI shows multiple chronic healed fractures of unknown age. In 2018, pt spent a long day painting a ceiling , stepped off a ladder and noticed numbness in his left leg. Pain evolved into burning sensation down both legs in sciatic distribution. He was treated with PT and had a few injections with minimal relief . He consulted a neurosurgeon at [facility] in fall 2018, had PT again and another injection (relief for only two days). He has also tried accupuncure and chiropractic. He used a self-guided exercise program from his insurance ([employer] from [facility]) very faithfully for nearly a year. Ultimately, he elected surgery (L1-2 and L4-5 laminectomy). Since surgery Since surgery, sciatic nerve pain BLE is improved. He does note some residual left hip burning pain but nothing down the leg. He reports LBP (R more affected than left). Ice and ibuprofen are helpful. Pt historically slept on his stomach but turned into a back and side sleeper since his injury. He reports muscle spasm between shoulder blades and in hamstrings (left more) which interrupt his sleep. Prior Treatments and Tests 08/20/20 L/S MRI - 1. Multilevel degenerative disc and facet disease, as well as ligamentum flavum hypertrophy and epidural lipomatosis. 2. Multilevel canal stenoses, worst at L4-L5, where there is severe canal stenosis. Moderate to severe canal stenosis at L1-L2. 3. Multilevel foraminal stenoses, worst at L2-L3, L3- L4, L4-L5, and L5-S1, where there are moderate foraminal stenoses as described above. 4. Right lateral recess stenosis at L1-L2 associated with right L2 nerve root compression. Recommend correlation with clinical symptoms to ascertain relevance of this finding. 12/12/20 - L1-2 L4-5 decompression Treatment Goals Patient/Caregiver Goals Patient hoping aquatic therapy can help him recover and return to many of his prior activities. Reports besides PT exercises his doctor gave him a list of exercises to do at home including 1 min regular plank which is very hard for him to do. PT-OP-C Subjective Start: 02/03/21 15:37 Freq: Status: Active Protocol: Document 03/11/21 15:18 LJ (Rec: 03/11/21 15:32 LJ [id number]) OP-PT Subjective Patient Comments Patient Comments Pt states he is doing well and looking forward to skiing. Patient Reported Progress Improving PT-OP-D Balance Start: 02/03/21 15:37 Freq: Status: Active Protocol: Document 02/04/21 09:45 AW (Rec: 02/04/21 11:09 AW [email or web address]) Balance Tests Single Limb Standing Single Limb- Right 10 seconds unsteady, reaching for support Single Limb- Left 25 seconds steady PT-OP-E Functional Tests Start: 02/03/21 15:37 Freq: Status: Active Protocol: Document 02/04/21 09:45 AW (Rec: 02/04/21 11:10 AW [email or web address]) Functional Tests Single Leg Squat Test Comment LLE able to stand steadily from 18 mat; RLE unsteady from 22 mat PT-OP-H Neuro Start: 02/03/21 15:37 Freq: Status: Active Protocol: Document 02/04/21 09:45 AW (Rec: 02/04/21 12:49 AW [email or web address]) Sensation Evaluation Gross Sensation Gross Sensation Right LE Impaired Sensation Description Numbness Comments Summary Comments Pt reports chronic dull sensation right lateral and anterior shank and dorsal foot . Deep Tendon Reflex & Clonus Assessment Deep Tendon Reflex Bilateral Achilles Deep Tendon Reflex 1+ Diminished Bilateral Patellar Deep Tendon Reflex 1+ Diminished PT-OP-J Posture/Palpation/Skin Start: 02/03/21 15:37 Freq: Status: Active Protocol: Document 02/04/21 09:45 AW (Rec: 02/04/21 12:49 AW [email or web address]) Posture Evaluation Position Standing Head/C-Spine Posture Forward Head L-Spine Posture Flattened Weight Distribution Weight Shifted Left Palpation Assessment Location BLE Palpation Findings Soft Tissue Tightness Palpation Details Reduced HS length in supine 90 /90 - lacking ~30 degrees BLE. Internal rotation is severely limited bilaterally in supine . External rotation moderately limited. lumbar paraspinals Palpation Details Increased tone right lumbar paraspinals at levels of incisions. Skin Assessment Incisional Assessment Incision Appearance/Comments Healing incisions along L1-2 and L4-5. Slightly reduced scar mobility PT-OP-K Range of Motion Start: 02/03/21 15:37 Freq: Status: Active Protocol: Document 02/04/21 09:45 AW (Rec: 02/05/21 10:06 AW [email or web address]) Lumbar Spine Range of Motion Lumbar Spine Active Degrees Testing Position Standing Flexion 65 Extension 16 ROM Limitations Pain Comments Painful right rotation especially in sitting. Pt is able to laterally flex with fingertips to knee joint line bilaterally without c/o pain. Hip Goniometric Range of Motion Hip ROM Limitations Hip ROM Limitations Soft Tissue Tightness Comments Internal rotation in B hips is severely limited; external rotation moderately limited. In supine, remaining hip AROM and PROM WNL Knee Goniometric Range of Motion Knee ROM Limitations Knee ROM Limitations Soft Tissue Tightness Comments In supine 90/90, pt lacks 30 degrees knee extension bilaterally. Ankle and Foot Goniometric Range of Motion Ankle and Foot bilat Ankle/Foot ROM WFL No Comments Right ankle DF AROM limited ( less than neutral). Ankle and Foot ROM Limitations ROM Limitations Muscle Weakness Comments Pt reports nerve injury secondary to fracture >30 years ago which resulted in functional right foot drop. PT-OP-M Strength Start: 02/03/21 15:37 Freq: Status: Active Protocol: Document 02/04/21 09:45 AW (Rec: 02/05/21 10:06 AW [email or web address]) Hip Strength Hip Manual Muscle Testing bilat Flexion (L2) 4+ Good+ Extension (S1) 4 Good Abduction 4+ Good+ Knee Strength Knee Manual Muscle Testing bilat Flexion (S2) 5 Normal Extension (L3) 5 Normal Ankle/Foot Strength Ankle and Foot Manual Muscle Testing Right Dorsiflexion (L4) 3- Fair- Plantarflexion (S1) 5 Normal Left Dorsiflexion (L4) 5 Normal Plantarflexion (S1) 5 Normal Comments Pt performs 20 single leg heel raises right and left without evidence of imbalance. Toe Strength Toe Manual Muscle Testing Right Great Toe Flexion 4 Good Extension 4 Good Comments Left great toe 5/5 PT-OP-Q Treatments Start: 02/03/21 15:37 Freq: Status: Active Protocol: Document 03/10/21 13:45 AW (Rec: 03/10/21 13:58 AW [id number]) Cardio Equipment Elliptical Duration (Minutes) 5 Resistance 5 Other able to carry on conversation Therapeutic Exercises Supine Exercises bug Supine Exercise Name OA/OL Side bilateral Reps/Minutes x12 Comments HEP SLR Supine Exercise Name improved HS extensibility Side bilateral Reps/Minutes 10 x2 Comments cued controlled movement supine posture press Supine Exercise Name supine posture press Reps/Minutes 5SH x 10 Comments cued 60% 1RM Prone Exercises plank Prone Exercise Name elbows/toes Reps/Minutes 45 sec with good form Comments consider side plank on knees next visit bird dog Prone Exercise Name motor control on glute activation Reps/Minutes 10x2 Comments cues on PPT, decrease pelvic rotation Standing Exercises squat tap Standing Exercise Name squat tap Resistance 10# db held at chest Reps/Minutes 10 x 3 Comments cued cervical neutral; HEP quad stretch Standing Exercise Name quad stretch Equipment Used 24 step; chair in front Comments HEP Manual Therapy Treatment Soft Tissue Mobilization scar mob Mobilization Type Rolling Intensity/Depth Superficial Body Position Prone PT-OP-R Modalities Start: 02/03/21 15:37 Freq: Status: Active Protocol: Document 03/04/21 08:18 HH (Rec: 03/04/21 09:04 HH [id number]) Hot Pack/Cold Pack Treatment Hot Pack Location lumbar Patient Position Hooklying Treatment Duration (minutes) 15 Patient Tolerance Good PT-OP-S Aquatic Treatment Start: 02/03/21 15:37 Freq: Status: Active Protocol: Document 03/11/21 15:18 RADHA (Rec: 03/11/21 15:32 LJ [id number]) Aquatics Treatment Pool Entry/Exit Pool Entry/Exit Method Stairs Assistance Independent Water Walking circumduction Water Level Chest Level Walking Equipment Resistance Fins-blue Level of Assistance Verbal Cues backward lunge walking Water Level Chest Level Walking Equipment Resistance Fins-blue Level of Assistance Verbal Cues Comments emphasis on full knee extension when standing Lunge Walk Water Level Chest Level Walking Equipment Resistance Fins-blue Level of Assistance Verbal Cues Comments emphasis on full knee extension when standing forward, bck, side, march Water Level Chest Level Walking Equipment Resistance Fins-blue Level of Assistance Verbal Cues Lower Extremity Exercises HS curls Body Position Standing Water Level Waist Level Equipment Resistance Fins Reps/Duration 10 x 2 B kick back Details at wall Body Position Standing Water Level Waist Level Equipment Resistance Fins Reps/Duration 10 x2 B Comments emphasis on abdominal bracing knee extension Details at wall Body Position Standing Water Level Waist Level Equipment Resistance Fins Reps/Duration 10 x2 B hip ab/ad Body Position Standing Water Level Waist Level Equipment Resistance Fins Reps/Duration 10 x2 B hip flex/ext Body Position Standing Water Level Waist Level Equipment Resistance Fins Reps/Duration 10 x2 B Lower Extremity Stretches gastroc, soleus Details facing wall Body Position Standing Reps/Duration 30 sec x 21 B hip flexors Details resting foot on stair Body Position Standing Comments therapist assist quads Details facing wall Body Position Standing Comments therapist assist HS, ITB Details back to pool wall Body Position Standing Equipment Small Noodle Spinal Exercises Wonderboard Reps/Duration 4 min Comments static and dynamic; UE mvnt Balance plyometric pistol squats Body Position Standing Water Level Chest Level Reps/Duration 10 x2 B Dulzura Activities Dulzura Activities Running Equipment ankle fins Duration 10 PT-OP-T Assessment and Plan Start: 02/03/21 15:37 Freq: Status: Active Protocol: Document 03/11/21 15:18 RADHA (Rec: 03/11/21 15:32 [id number]) Physical Therapy Assessment Rehab Potential Rehabilitation Potential Excellent Evaluation Complexity Number of Personal Factors/Comorbidities 1-2 Number of Body Systems Impaired 3 Clinical Presentation at Evaluation Evolving Impairments Impairments Balance,Functional Mobility, Gait,Pain,Posture,ROM, Sensation,Soft Tissue Mobility ,Strength Goals Four Impairment balance Short Term Goal (STG) Pt will rise on single leg ( right and left) from 19 high surface without evidence of imbalance. STG Duration 03/04/21 Care Home Goal (LTG) Pt will rise on single leg ( right and left) from 18 high surface five times without evidence of imbalance as a measure of improved single leg strength and stability. LTG Duration 04/10/21 Three Impairment MANUEL score 26 Care Home Goal (LTG) Pt will improve ODS score from 26 to 15 or less as a measure of improved daily function. LTG Duration 04/10/21 Two Impairment impaired sleep Care Home Goal (LTG) Pt will sleep at least 7 uninterrupted hours for 5/7 nights to promote pain management. LTG Duration 04/10/21 One Impairment lacks appropriate HEP Short Term Goal (STG) Pt will be instructed in HEP to address soft tissue restrictions and lumbar mobility. STG Duration 03/04/21 Digital Media Sales Consultant Goal (LTG) Pt will be independent with HEP to address BLE tissue length, strength, and balance for improved ability to self- manage pain LTG Duration 04/10/21 Assessment Summary Assessment AQUATICS: Pt tolerated fins on LEs well with no c/o muscle fatigue. He did have some coordination challenges with walking, skiing and sideways gait which he was able to self correct after several minutes of said activities. Pt also did well with balance on wonderboard. Continue to progress pt with resistance equipment adding cardio to treatment sessions. Physical Therapy Plan Frequency and Duration Frequency of Treatment 1-2x/week Duration of Treatment 2 months Plan of Care Start Date 02/04/21 Plan of Care End Date 04/10/21 Therapeutic Interventions Therapeutic Interventions Aquatic Therapy,Balance Training,Gait Training,Home Exercise Program,Manual Therapy,Neuromuscular Re- education,Patient/Caregiver Education,Self-Care/Home Management,Sensory Integration ,Soft Tissue Mobilization, Therapeutic Activities, Therapeutic Exercises Modalities Cold Pack/Ice Massage,Hot Packs Next Visit Focus/Plan Next Note Type Treatment Note Next Visit Plan AQUATICS: Add plyometric exercises as tolerated.
--- NOTE | 2021-03-18 09:45 | PT.OTN ---
Current Diagnoses Foot drop, right foot (03/18/21) Spondylolisthesis, lumbar region (03/18/21) Other spondylosis with radiculopathy, lumbar region (03/18/21) Spinal stenosis, lumbar region with neurogenic claudication (03/18/21) Other intervertebral disc displacement, lumbar region (03/18/21) Radiculopathy, lumbar region (03/18/21) Difficulty in walking, not elsewhere classified (03/18/21) Other specified postprocedural states (03/18/21) Physical Therapy Treatment Note PT-OP-A Visit Information Start: 02/03/21 15:37 Freq: Status: Active Protocol: Document 03/18/21 09:40 AW (Rec: 03/18/21 09:45 AW [id number]) Out-Patient Physical Therapy Visit Information Visit Information Visit Type Treatment Note Visit Start Time 09:00 Visit Stop Time 09:40 Total Visit Minutes 40 Visit Number 12 Number of DIRECTOR OF PHYSICAL SECURITY Visits 0 PT-OP-B Current Condition Start: 02/03/21 15:37 Freq: Status: Active Protocol: Document 02/09/21 16:53 SAK (Rec: 02/09/21 17:02 SAK [id number]) Current Condition History of Current Condition Onset Date October 2017 Current Complaints back pain s/p back surgery; chronic right foot drop History of Current Condition Pt has a lengthy history of orthopedic injuries. By his own report, he has always played hard participating in snow and water skiing, multiple sports. He has had right rotator cuff tear, right tibia/fibula fractures and nerve damage at age 30 resulting in foot drop, right osteotomy. MRI shows multiple chronic healed fractures of unknown age. In 2018, pt spent a long day painting a ceiling , stepped off a ladder and noticed numbness in his left leg. Pain evolved into burning sensation down both legs in sciatic distribution. He was treated with PT and had a few injections with minimal relief . He consulted a neurosurgeon at [facility] in fall 2018, had PT again and another injection (relief for only two days). He has also tried accupuncure and chiropractic. He used a self-guided exercise program from his insurance ([employer] from [employer]) very faithfully for nearly a year. Ultimately, he elected surgery (L1-2 and L4-5 laminectomy). Since surgery Since surgery, sciatic nerve pain BLE is improved. He does note some residual left hip burning pain but nothing down the leg. He reports LBP (R more affected than left). Ice and ibuprofen are helpful. Pt historically slept on his stomach but turned into a back and side sleeper since his injury. He reports muscle spasm between shoulder blades and in hamstrings (left more) which interrupt his sleep. Prior Treatments and Tests 08/20/20 L/S MRI - 1. Multilevel degenerative disc and facet disease, as well as ligamentum flavum hypertrophy and epidural lipomatosis. 2. Multilevel canal stenoses, worst at L4-L5, where there is severe canal stenosis. Moderate to severe canal stenosis at L1-L2. 3. Multilevel foraminal stenoses, worst at L2-L3, L3- L4, L4-L5, and L5-S1, where there are moderate foraminal stenoses as described above. 4. Right lateral recess stenosis at L1-L2 associated with right L2 nerve root compression. Recommend correlation with clinical symptoms to ascertain relevance of this finding. 12/12/20 - L1-2 L4-5 decompression Treatment Goals Patient/Caregiver Goals Patient hoping aquatic therapy can help him recover and return to many of his prior activities. Reports besides PT exercises his doctor gave him a list of exercises to do at home including 1 min regular plank which is very hard for him to do. PT-OP-C Subjective Start: 02/03/21 15:37 Freq: Status: Active Protocol: Document 03/18/21 09:40 AW (Rec: 03/18/21 09:45 AW [id number]) OP-PT Subjective Patient Comments Patient Comments Pt did some exercise already this morning. Feeling close to ready for discharge. Patient Reported Progress Improving PT-OP-D Balance Start: 02/03/21 15:37 Freq: Status: Active Protocol: Document 02/04/21 09:45 AW (Rec: 02/04/21 11:09 AW [email or web address]) Balance Tests Single Limb Standing Single Limb- Right 10 seconds unsteady, reaching for support Single Limb- Left 25 seconds steady PT-OP-E Functional Tests Start: 02/03/21 15:37 Freq: Status: Active Protocol: Document 02/04/21 09:45 AW (Rec: 02/04/21 11:10 AW [email or web address]) Functional Tests Single Leg Squat Test Comment LLE able to stand steadily from 18 mat; RLE unsteady from 22 mat PT-OP-H Neuro Start: 02/03/21 15:37 Freq: Status: Active Protocol: Document 02/04/21 09:45 AW (Rec: 02/04/21 12:49 AW [email or web address]) Sensation Evaluation Gross Sensation Gross Sensation Right LE Impaired Sensation Description Numbness Comments Summary Comments Pt reports chronic dull sensation right lateral and anterior shank and dorsal foot . Deep Tendon Reflex & Clonus Assessment Deep Tendon Reflex Bilateral Achilles Deep Tendon Reflex 1+ Diminished Bilateral Patellar Deep Tendon Reflex 1+ Diminished PT-OP-J Posture/Palpation/Skin Start: 02/03/21 15:37 Freq: Status: Active Protocol: Document 02/04/21 09:45 AW (Rec: 02/04/21 12:49 AW [email or web address]) Posture Evaluation Position Standing Head/C-Spine Posture Forward Head L-Spine Posture Flattened Weight Distribution Weight Shifted Left Palpation Assessment Location BLE Palpation Findings Soft Tissue Tightness Palpation Details Reduced HS length in supine 90 /90 - lacking ~30 degrees BLE. Internal rotation is severely limited bilaterally in supine . External rotation moderately limited. lumbar paraspinals Palpation Details Increased tone right lumbar paraspinals at levels of incisions. Skin Assessment Incisional Assessment Incision Appearance/Comments Healing incisions along L1-2 and L4-5. Slightly reduced scar mobility PT-OP-K Range of Motion Start: 02/03/21 15:37 Freq: Status: Active Protocol: Document 02/04/21 09:45 AW (Rec: 02/05/21 10:06 AW [email or web address]) Lumbar Spine Range of Motion Lumbar Spine Active Degrees Testing Position Standing Flexion 65 Extension 16 ROM Limitations Pain Comments Painful right rotation especially in sitting. Pt is able to laterally flex with fingertips to knee joint line bilaterally without c/o pain. Hip Goniometric Range of Motion Hip ROM Limitations Hip ROM Limitations Soft Tissue Tightness Comments Internal rotation in B hips is severely limited; external rotation moderately limited. In supine, remaining hip AROM and PROM WNL Knee Goniometric Range of Motion Knee ROM Limitations Knee ROM Limitations Soft Tissue Tightness Comments In supine 90/90, pt lacks 30 degrees knee extension bilaterally. Ankle and Foot Goniometric Range of Motion Ankle and Foot bilat Ankle/Foot ROM WFL No Comments Right ankle DF AROM limited ( less than neutral). Ankle and Foot ROM Limitations ROM Limitations Muscle Weakness Comments Pt reports nerve injury secondary to fracture >30 years ago which resulted in functional right foot drop. PT-OP-M Strength Start: 02/03/21 15:37 Freq: Status: Active Protocol: Document 02/04/21 09:45 AW (Rec: 02/05/21 10:06 AW [email or web address]) Hip Strength Hip Manual Muscle Testing bilat Flexion (L2) 4+ Good+ Extension (S1) 4 Good Abduction 4+ Good+ Knee Strength Knee Manual Muscle Testing bilat Flexion (S2) 5 Normal Extension (L3) 5 Normal Ankle/Foot Strength Ankle and Foot Manual Muscle Testing Right Dorsiflexion (L4) 3- Fair- Plantarflexion (S1) 5 Normal Left Dorsiflexion (L4) 5 Normal Plantarflexion (S1) 5 Normal Comments Pt performs 20 single leg heel raises right and left without evidence of imbalance. Toe Strength Toe Manual Muscle Testing Right Great Toe Flexion 4 Good Extension 4 Good Comments Left great toe 5/5 PT-OP-Q Treatments Start: 02/03/21 15:37 Freq: Status: Active Protocol: Document 03/18/21 09:40 AW (Rec: 03/18/21 09:45 AW [id number]) Cardio Equipment Elliptical Duration (Minutes) 5 Resistance 5 Other able to carry on conversation Therapeutic Exercises Supine Exercises supine posture press Supine Exercise Name supine posture press Reps/Minutes 5SH x 10 Comments cued 60% 1RM Prone Exercises plank Prone Exercise Name hands/feet Reps/Minutes 45 sec with good form Comments form check Sidelying Exercises side plank Sidelying Exercise Name side plank Side bilateral Reps/Minutes 30 SH Comments knees, elbow > feet, elbow Standing Exercises DL Standing Exercise Name SLDL; half-DL Resistance # db; 10#db Reps/Minutes x15 Comments good form neutral L/S quad stretch Standing Exercise Name quad stretch Side bilateral Equipment Used 24 step; chair in front Comments HEP SL stance Standing Exercise Name SL stance w/ 90 deg hip flexion Side bilateral Equipment Used fingertip support at wall for RLE Comments progressed to star taps w/ fingertip support on RLE PT-OP-R Modalities Start: 02/03/21 15:37 Freq: Status: Active Protocol: Document 03/04/21 08:18 HH (Rec: 03/04/21 09:04 HH [id number]) Hot Pack/Cold Pack Treatment Hot Pack Location lumbar Patient Position Hooklying Treatment Duration (minutes) 15 Patient Tolerance Good PT-OP-S Aquatic Treatment Start: 02/03/21 15:37 Freq: Status: Active Protocol: Document 03/11/21 15:18 LJ (Rec: 03/11/21 15:32 LJ [id number]) Aquatics Treatment Pool Entry/Exit Pool Entry/Exit Method Stairs Assistance Independent Water Walking circumduction Water Level Chest Level Walking Equipment Resistance Fins-blue Level of Assistance Verbal Cues backward lunge walking Water Level Chest Level Walking Equipment Resistance Fins-blue Level of Assistance Verbal Cues Comments emphasis on full knee extension when standing Lunge Walk Water Level Chest Level Walking Equipment Resistance Fins-blue Level of Assistance Verbal Cues Comments emphasis on full knee extension when standing forward, bck, side, june Water Level Chest Level Walking Equipment Resistance Fins-blue Level of Assistance Verbal Cues Lower Extremity Exercises HS curls Body Position Standing Water Level Waist Level Equipment Resistance Fins Reps/Duration 10 x 2 B kick back Details at wall Body Position Standing Water Level Waist Level Equipment Resistance Fins Reps/Duration 10 x2 B Comments emphasis on abdominal bracing knee extension Details at wall Body Position Standing Water Level Waist Level Equipment Resistance Fins Reps/Duration 10 x2 B hip ab/ad Body Position Standing Water Level Waist Level Equipment Resistance Fins Reps/Duration 10 x2 B hip flex/ext Body Position Standing Water Level Waist Level Equipment Resistance Fins Reps/Duration 10 x2 B Lower Extremity Stretches gastroc, soleus Details facing wall Body Position Standing Reps/Duration 30 sec x 21 B hip flexors Details resting foot on stair Body Position Standing Comments therapist assist quads Details facing wall Body Position Standing Comments therapist assist HS, ITB Details back to pool wall Body Position Standing Equipment Small Noodle Spinal Exercises Wonderboard Reps/Duration 4 min Comments static and dynamic; UE mvnt Balance plyometric pistol squats Body Position Standing Water Level Chest Level Reps/Duration 10 x2 B Pipestem Activities Pipestem Activities Running Equipment ankle fins Duration 10 PT-OP-T Assessment and Plan Start: 02/03/21 15:37 Freq: Status: Active Protocol: Document 03/18/21 09:40 AW (Rec: 03/18/21 09:45 AW [id number]) Physical Therapy Assessment Rehab Potential Rehabilitation Potential Excellent Evaluation Complexity Number of Personal Factors/Comorbidities 1-2 Number of Body Systems Impaired 3 Clinical Presentation at Evaluation Evolving Impairments Impairments Balance,Functional Mobility, Gait,Pain,Posture,ROM, Sensation,Soft Tissue Mobility ,Strength Goals Four Impairment balance Short Term Goal (STG) Pt will rise on single leg ( right and left) from 19 high surface without evidence of imbalance. 03/18/21 - Pt rises on left leg easily. Evidence of imbalance right leg but able to perform. Right foot drop likely limiting. STG Duration 03/04/21 Nursing Home Goal (LTG) Pt will rise on single leg ( right and left) from 18 high surface five times without evidence of imbalance as a measure of improved single leg strength and stability. LTG Duration 04/10/21 Three Impairment MANUEL score 26 Nursing Home Goal (LTG) Pt will improve ODS score from 26 to 15 or less as a measure of improved daily function. LTG Duration 04/10/21 Two Impairment impaired sleep Shoe Salesman Goal (LTG) Pt will sleep at least 7 uninterrupted hours for 5/7 nights to promote pain management. 03/18/21 - Pt waking several times per night but not due to pain. Sleep study scheduled for April. LTG Duration 04/10/21 One Impairment lacks appropriate HEP Short Term Goal (STG) Pt will be instructed in HEP to address soft tissue restrictions and lumbar mobility. 03/18/21 MET STG Duration 03/04/21 Shoe Salesman Goal (LTG) Pt will be independent with HEP to address BLE tissue length, strength, and balance for improved ability to self- manage pain LTG Duration 04/10/21 Progress Towards Goals Progress Towards Goals Progressing Toward Goals,Goals Met Assessment Summary Assessment Pt shows good neutral form with high level exercise including star taps for single leg balance. Pt is happy with progress and appropriate for discharge. Physical Therapy Plan Frequency and Duration Frequency of Treatment 1-2x/week Duration of Treatment 2 months Plan of Care Start Date 02/04/21 Plan of Care End Date 04/10/21 Therapeutic Interventions Therapeutic Interventions Aquatic Therapy,Balance Training,Gait Training,Home Exercise Program,Manual Therapy,Neuromuscular Re- education,Patient/Caregiver Education,Self-Care/Home Management,Sensory Integration ,Soft Tissue Mobilization, Therapeutic Activities, Therapeutic Exercises Modalities Cold Pack/Ice Massage,Hot Packs Discharge Physical Therapy Discharge Reasons Goals Met Discharge Comments Pt has progressed well toward goals. Only remaining limitationis pre-existing right foot drop. Pt is independent with HEP and appropriate for discharge.
--- NOTE | 2021-04-02 14:28 | PT.OPDS ---
Current Diagnoses Foot drop, right foot (03/18/21) Spondylolisthesis, lumbar region (03/18/21) Other spondylosis with radiculopathy, lumbar region (03/18/21) Spinal stenosis, lumbar region with neurogenic claudication (03/18/21) Other intervertebral disc displacement, lumbar region (03/18/21) Radiculopathy, lumbar region (03/18/21) Difficulty in walking, not elsewhere classified (03/18/21) Other specified postprocedural states (03/18/21) Visit Care Team Role Provider Type Summer Bloom MD Family Provider Physician Primary Care Provider Specialty: Family Practice Address: [facility], [place], [address] Email: [email or web address] BRIGHT Payne Attending Provider Non-Staff Referring Provider Specialty: Medical Address: [address] [place] [address] [address], [place], [address] Email: Visit Number Visit Number 12 Discharge Summary PT-OP-B Current Condition Start: 02/03/21 15:37 Freq: Status: Active Protocol: Document 02/09/21 16:53 [facility] (Rec: 02/09/21 17:02 [facility] [id number]) Current Condition History of Current Condition Onset Date October 2017 Current Complaints back pain s/p back surgery; chronic right foot drop History of Current Condition Pt has a lengthy history of orthopedic injuries. By his own report, he has always played hard participating in snow and water skiing, multiple sports. He has had right rotator cuff tear, right tibia/fibula fractures and nerve damage at age 30 resulting in foot drop, right osteotomy. MRI shows multiple chronic healed fractures of unknown age. In 2018, pt spent a long day painting a ceiling , stepped off a ladder and noticed numbness in his left leg. Pain evolved into burning sensation down both legs in sciatic distribution. He was treated with PT and had a few injections with minimal relief . He consulted a neurosurgeon at [facility] in fall 2018, had PT again and another injection (relief for only two days). He has also tried accupuncure and chiropractic. He used a self-guided exercise program from his insurance ([employer] from [employer]) very faithfully for nearly a year. Ultimately, he elected surgery (L1-2 and L4-5 laminectomy). Since surgery Since surgery, sciatic nerve pain BLE is improved. He does note some residual left hip burning pain but nothing down the leg. He reports LBP (R more affected than left). Ice and ibuprofen are helpful. Pt historically slept on his stomach but turned into a back and side sleeper since his injury. He reports muscle spasm between shoulder blades and in hamstrings (left more) which interrupt his sleep. Prior Treatments and Tests 08/20/20 L/S MRI - 1. Multilevel degenerative disc and facet disease, as well as ligamentum flavum hypertrophy and epidural lipomatosis. 2. Multilevel canal stenoses, worst at L4-L5, where there is severe canal stenosis. Moderate to severe canal stenosis at L1-L2. 3. Multilevel foraminal stenoses, worst at L2-L3, L3- L4, L4-L5, and L5-S1, where there are moderate foraminal stenoses as described above. 4. Right lateral recess stenosis at L1-L2 associated with right L2 nerve root compression. Recommend correlation with clinical symptoms to ascertain relevance of this finding. 12/12/20 - L1-2 L4-5 decompression Treatment Goals Patient/Caregiver Goals Patient hoping aquatic therapy can help him recover and return to many of his prior activities. Reports besides PT exercises his doctor gave him a list of exercises to do at home including 1 min regular plank which is very hard for him to do. PT-OP-C Subjective Start: 02/03/21 15:37 Freq: Status: Active Protocol: Document 03/18/21 09:40 AW (Rec: 03/18/21 09:45 AW [id number]) OP-PT Subjective Patient Comments Patient Comments Pt did some exercise already this morning. Feeling close to ready for discharge. Patient Reported Progress Improving PT-OP-D Balance Start: 02/03/21 15:37 Freq: Status: Active Protocol: Document 02/04/21 09:45 AW (Rec: 02/04/21 11:09 AW [email or web address]) Balance Tests Single Limb Standing Single Limb- Right 10 seconds unsteady, reaching for support Single Limb- Left 25 seconds steady PT-OP-E Functional Tests Start: 02/03/21 15:37 Freq: Status: Active Protocol: Document 02/04/21 09:45 AW (Rec: 02/04/21 11:10 AW [email or web address]) Functional Tests Single Leg Squat Test Comment LLE able to stand steadily from 18 mat; RLE unsteady from 22 mat PT-OP-H Neuro Start: 02/03/21 15:37 Freq: Status: Active Protocol: Document 02/04/21 09:45 AW (Rec: 02/04/21 12:49 AW [email or web address]) Sensation Evaluation Gross Sensation Gross Sensation Right LE Impaired Sensation Description Numbness Comments Summary Comments Pt reports chronic dull sensation right lateral and anterior shank and dorsal foot . Deep Tendon Reflex & Clonus Assessment Deep Tendon Reflex Bilateral Achilles Deep Tendon Reflex 1+ Diminished Bilateral Patellar Deep Tendon Reflex 1+ Diminished PT-OP-J Posture/Palpation/Skin Start: 02/03/21 15:37 Freq: Status: Active Protocol: Document 02/04/21 09:45 AW (Rec: 02/04/21 12:49 AW [email or web address]) Posture Evaluation Position Standing Head/C-Spine Posture Forward Head L-Spine Posture Flattened Weight Distribution Weight Shifted Left Palpation Assessment Location BLE Palpation Findings Soft Tissue Tightness Palpation Details Reduced HS length in supine 90 /90 - lacking ~30 degrees BLE. Internal rotation is severely limited bilaterally in supine . External rotation moderately limited. lumbar paraspinals Palpation Details Increased tone right lumbar paraspinals at levels of incisions. Skin Assessment Incisional Assessment Incision Appearance/Comments Healing incisions along L1-2 and L4-5. Slightly reduced scar mobility PT-OP-K Range of Motion Start: 02/03/21 15:37 Freq: Status: Active Protocol: Document 02/04/21 09:45 AW (Rec: 02/05/21 10:06 AW [email or web address]) Lumbar Spine Range of Motion Lumbar Spine Active Degrees Testing Position Standing Flexion 65 Extension 16 ROM Limitations Pain Comments Painful right rotation especially in sitting. Pt is able to laterally flex with fingertips to knee joint line bilaterally without c/o pain. Hip Goniometric Range of Motion Hip ROM Limitations Hip ROM Limitations Soft Tissue Tightness Comments Internal rotation in B hips is severely limited; external rotation moderately limited. In supine, remaining hip AROM and PROM WNL Knee Goniometric Range of Motion Knee ROM Limitations Knee ROM Limitations Soft Tissue Tightness Comments In supine 90/90, pt lacks 30 degrees knee extension bilaterally. Ankle and Foot Goniometric Range of Motion Ankle and Foot bilat Ankle/Foot ROM WFL No Comments Right ankle DF AROM limited ( less than neutral). Ankle and Foot ROM Limitations ROM Limitations Muscle Weakness Comments Pt reports nerve injury secondary to fracture >30 years ago which resulted in functional right foot drop. PT-OP-M Strength Start: 02/03/21 15:37 Freq: Status: Active Protocol: Document 02/04/21 09:45 AW (Rec: 02/05/21 10:06 AW [email or web address]) Hip Strength Hip Manual Muscle Testing bilat Flexion (L2) 4+ Good+ Extension (S1) 4 Good Abduction 4+ Good+ Knee Strength Knee Manual Muscle Testing bilat Flexion (S2) 5 Normal Extension (L3) 5 Normal Ankle/Foot Strength Ankle and Foot Manual Muscle Testing Right Dorsiflexion (L4) 3- Fair- Plantarflexion (S1) 5 Normal Left Dorsiflexion (L4) 5 Normal Plantarflexion (S1) 5 Normal Comments Pt performs 20 single leg heel raises right and left without evidence of imbalance. Toe Strength Toe Manual Muscle Testing Right Great Toe Flexion 4 Good Extension 4 Good Comments Left great toe 5/5 PT-OP-T Assessment and Plan Start: 02/03/21 15:37 Freq: Status: Active Protocol: Document 04/02/21 14:27 AW (Rec: 04/02/21 14:28 AW [id number]) Physical Therapy Plan Discharge Physical Therapy Discharge Reasons Goals Met Discharge Comments Pt attended land-based and aquatic therapy for two months following lumbar surgery. He met all goals and feels confident to discharge to [facility]. Pt understands he will need a new referral to return to PT.
== END 2021-05-05 08:45 ==
LOC: PHYS 09:00
PROVIDERS: Family Provider Student in an Organized Health Care Education/Training Program; PCP Student in an Organized Health Care Education/Training Program; Referring Provider Nurse Practitioner; Visit Provider Nurse Practitioner
DX: Z98.890 Other specified postprocedural states (principal); M51.26 Other intervertebral disc displacement, lumbar region; M43.16 Spondylolisthesis, lumbar region; M21.371 Foot drop, right foot; M47.26 Other spondylosis with radiculopathy, lumbar region; M48.062 Spinal stenosis, lumbar region with neurogenic claudication; R26.2 Difficulty in walking, not elsewhere classified
CPT/HCPCS: 97110; 97113; 97140; 97161

== ENCOUNTER → 2021-07-30 14:04 | Outpatient (CLI) | payer MEDICARE, BC, SELFPAY ==
--- NOTE | 2021-07-30 | DI.US.S_ITS ---
PROCEDURE: US EXTREMITY NONVASC LOWER LT INDICATIONS: LEFT KNEE MASS TECHNIQUE: Real-time scanning was performed of the left knee, with image documentation. COMPARISON: None. FINDINGS: Focused ultrasound examination of anterior left knee shows an anechoic area within subcutaneous soft tissue with through acoustic enhancement measures 1.1 x 1 x 0.4 cm in size and show no internal vascularity. IMPRESSION: 1.1 x 1 x 0.4 cm cystic area involving anterior left knee soft tissue and show no internal vascularity . Finding likely represent benign soft tissue cyst versus small organizing hematoma. Clinical correlation and follow-up is recommended. Dictated by: Vincenzo Crews M.D. on 07/30/2021 at 15:16 Approved by: Vincenzo Crews M.D. on 07/30/2021 at 15:22
== END ==
PROVIDERS: Family Provider Student in an Organized Health Care Education/Training Program; PCP Student in an Organized Health Care Education/Training Program; Referring Provider Student in an Organized Health Care Education/Training Program; Visit Provider Student in an Organized Health Care Education/Training Program
DX: R22.42 Localized swelling, mass and lump, left lower limb (principal)
CPT/HCPCS: 76882

== ENCOUNTER → 2021-10-09 12:31 | Outpatient (CLI) | payer MEDICARE, BC, SELFPAY ==
--- NOTE | 2021-10-09 12:35 | DI.RAD.S_ITS ---
PROCEDURE: XR ACUTE ABDOMEN SERIES INDICATIONS: abdominal pain TECHNIQUE: One view chest and two views of the abdomen were acquired. COMPARISON: [facility], CT, CT ABDOMEN PELVIS W CON, 02/18/2020, 9:26. FINDINGS: Surgical changes and devices: None. Chest: Lungs are clear. Heart size is normal. No pleural effusions. No pneumoperitoneum. Abdomen: Bowel gas pattern is normal. No suspicious calcifications. Visualized solid organ contours appear normal. Bones: No suspicious bony lesions. IMPRESSION: Nonobstructive bowel gas pattern. If clinical symptoms persist, CT is suggested for further evaluation. Dictated by: Fab Martin M.D. on 10/09/2021 at 20:36 Approved by: Fab Martin M.D. on 10/09/2021 at 20:37
== END ==
PROVIDERS: Family Provider Student in an Organized Health Care Education/Training Program; PCP Student in an Organized Health Care Education/Training Program; Referring Provider Internal Medicine; Visit Provider Internal Medicine
DX: R10.9 Unspecified abdominal pain (principal)
CPT/HCPCS: 74022

== ENCOUNTER → 2021-10-19 09:39 | Outpatient (CLI) | payer MEDICARE, BC, SELFPAY ==
--- NOTE | 2021-10-19 11:20 | DI.CT.S_ITS ---
PROCEDURE: CT ABDOMEN PELVIS W CON INDICATIONS: ABDOMINAL PAIN TECHNIQUE: After the administration of oral and IV contrast, axial sections were acquired from the lung bases to the pubic symphysis. Coronal and sagittal reformats were performed. For radiation dose reduction, the following was used: automated exposure control, adjustment of mA and/or kV according to patient size. COMPARISON: [facility], CT, CT ABDOMEN PELVIS W CON, 02/18/2020, 9:26. FINDINGS: Image quality: Excellent. Lung bases: Unremarkable. Heart: No significant findings. ABDOMEN: Liver: Normal size. Mild hepatic steatosis. Gallbladder: Unremarkable. Biliary ducts: Unremarkable. Pancreas: Unremarkable. Spleen: Unremarkable. Adrenal Glands: Unremarkable. Kidneys and Ureters: Unremarkable. Stomach and Bowel: Stomach, small bowel loops, and colon are normal in caliber. There is appearance of mild concentric thickening of the duodenum (series 2, image 32) and mild thickening of the right colon. There is moderate amount of stool in colon. Peritoneum: No abnormal intraperitoneal fluid. No free air. Ventral Wall: No hernia. Abdominal Nodes: No retroperitoneal or mesenteric adenopathy by size criteria. Vessels: Aorta and inferior vena cava are normal in size. PELVIS: Pelvic Organs: Prostate is enlarged. Bladder: Mild bladder wall thickening. Pelvic Nodes: No enlarged lymph nodes. Miscellaneous: No inguinal hernias are seen. Bones: [id number] changes in lumbar spine IMPRESSION: 1. There is appearance of mild thickening of duodenum and right colon, which may be secondary to mild enterocolitis or artifact. 2. Moderate amount of stool in colon. 3. Enlarged prostate. Dictated by: Fab Martin M.D. on 10/19/2021 at 19:45 Approved by: Fab Martin M.D. on 10/20/2021 at 7:17
== END ==
PROVIDERS: Family Provider Student in an Organized Health Care Education/Training Program; PCP Family Medicine; Referring Provider Family Medicine; Visit Provider Family Medicine
DX: R10.9 Unspecified abdominal pain (principal); K76.0 Fatty (change of) liver, not elsewhere classified; N40.0 Benign prostatic hyperplasia without lower urinary tract symptoms
CPT/HCPCS: 74177

== ENCOUNTER → 2022-03-09 11:51 | Outpatient (CLI) | payer MEDICARE, BC, SELFPAY ==
--- NOTE | 2022-03-09 | DI.RAD.S_ITS ---
PROCEDURE: XR KNEE RT 3V INDICATIONS: RIGHT KNEE PAIN TECHNIQUE: 3 views of the knee were acquired. COMPARISON: None. FINDINGS: Bones: No fractures or dislocations. No suspicious bony lesions. Surgical fixation hardware involves the medial tibial plateau possibly related to prior ORIF of plateau fracture. Moderate narrowing of the medial femoral tibial joint as well as the patellofemoral knee joint and tricompartmental periarticular osteophyte formation. Soft tissues: Small joint effusion. No suspicious soft tissue calcifications. Curvilinear calcification along the medial aspect of the proximal tibia. Chondrocalcinosis. IMPRESSION: 1. Fixation hardware along the lateral tibial plateau likely related to prior ORIF of lateral plateau fracture. 2. Tricompartmental knee joint degeneration, most notably involving the medial femoral tibial and lateral patellofemoral knee joints. 3. Chondrocalcinosis. Differential diagnosis includes but is not limited to hemochromatosis, hyperparathyroidism and CPPD. 4. Medial dystrophic calcification likely involving the medial collateral ligament. Dictated by: Preston Curiel [facility] Interpreted: Fab Martin MD on 03/09/2022 at 14:42 Approved by: Fab Martin M.D. on 03/09/2022 at 17:30
== END ==
PROVIDERS: Family Provider Student in an Organized Health Care Education/Training Program; PCP Family Medicine; Referring Provider Family Medicine; Visit Provider Family Medicine
DX: M17.11 Unilateral primary osteoarthritis, right knee (principal); M25.561 Pain in right knee; M11.261 Other chondrocalcinosis, right knee
CPT/HCPCS: 73562

== ENCOUNTER → 2022-03-12 15:39 | Outpatient (CLI) | payer MEDICARE, BC, SELFPAY ==
--- NOTE | 2022-03-12 15:41 | DI.US.S_ITS ---
PROCEDURE: US EXTREMITY NONVASC LOWER LT INDICATIONS: Localized swelling, mass and lump, unspecified low TECHNIQUE: Real-time scanning was performed of the left knee, with image documentation. COMPARISON: [facility], CR, XR KNEE RT 3V, 03/09/2022, 12:01. [facility], US, US EXTREMITY NONVASC LOWER LT, 07/30/2021, 15:11. FINDINGS: Anechoic cystic structure again seen extending into the subcutaneous tissues at the area of clinical concern in the left knee. The lesion measures 0.8 x 1.0 x 0.6 cm, previously measuring 1.0 x 1.0 x 0.4 cm. No internal vascularity is seen. IMPRESSION: Nonspecific periarticular cystic lesion again seen extending into the subcutaneous tissues. Differential considerations include a ganglion cyst versus dissecting parameniscal cyst or extracapsular extension of a bursa, among other etiologies. Cystic neoplasm is felt to be unlikely. Consider MRI of the knee for further evaluation if indicated clinically. Approved by: En Kaufman M.D. on 03/12/2022 at 20:32
== END ==
PROVIDERS: Family Provider Student in an Organized Health Care Education/Training Program; PCP Family Medicine; Referring Provider Family Medicine; Visit Provider Family Medicine
DX: R22.42 Localized swelling, mass and lump, left lower limb (principal)
CPT/HCPCS: 76882

== ENCOUNTER → 2022-03-16 09:32 | Outpatient (CLI) | payer MEDICARE, BC, SELFPAY ==
[2022-03-16 11:08] LABS: COVID19 -Nasal RAPID Negative (Negative)
== END ==
PROVIDERS: Family Provider Student in an Organized Health Care Education/Training Program; PCP Family Medicine; Visit Provider Surgery
DX: Z01.812 Encounter for preprocedural laboratory examination (principal); Z20.822 Contact with and (suspected) exposure to COVID-19
CPT/HCPCS: 87635; C9803

== ENCOUNTER 2022-03-17 07:53 | Day surgery (SDC) | payer MEDICARE, BC, SELFPAY ==
--- NOTE | 2022-03-17 | PATH_ITS ---
[facility] Accession Number: [id number] . 01 Material submitted: . PART A: rectum - RECTAL POLYPS PART B: colon - DESCENDING COLON POLYP . 01 Diagnosis: A. Rectal Polyps, Biopsy: Hyperplastic polyps. . B. Descending Colon Polyp, Biopsy: Tubulovillous adenoma. No high-grade dysplasia or malignancy. [facility] 03/19/2022 1433 Local . 01 Electronically signed: . Olga Ramos MD, Pathologist NPI- [id number] . 01 Gross description: . Part A: RECTAL POLYPS: Received in formalin are 2 fragment(s) of pate, soft tissue measuring 0.1 x 0.1 x 0.1 cm to 0.4 x 0.4 x 0.3 cm submitted entirely in 1 cassette(s) Part B: DESCENDING COLON POLYP: Received in formalin is 1 fragment(s) of pate, soft tissue measuring 0.8 x 0.6 x 0.6 cm submitted entirely in 1 cassette(s) /CHEMO 03/18/2022 1835 Local . 01 Pathologist provided ICD-10: D12.8, D12.4 . 01 CPT . 990716, [id number] Performed at: 01 [facility] [address] [place] [address] [address], [place], [place] [id number] MD Frank Borja MD Phone: [phone]
[2022-03-17 08:12] VITALS: BMI 27.9
[2022-03-17 08:18] VITALS: BP 129/87; PULSE 64; RESP 16; TEMP 36.2; O2SAT 97
[2022-03-17] MEDS: LACTATED RINGERS 1,000 ML 42 ML IV (08:28)
--- NOTE | 2022-03-17 09:14 | PM.HP.1 ---
History of Present Illness History of Present Illness Chief complaint: Colonoscopy/EGD Narrative: Abdominal pain, change in bowel habits, abnormal CT scan Patient History Medical History (Updated 11/11/21 @ 09:39 by BRIGHT Tinoco) Obstructive sleep apnea Family & Social History Social History: household members spouse Tobacco & Substance use: Smoking Status Former smoker alcohol intake current alcohol intake frequency 0-2 drinks per day Substance Use Type does not use Meds Home Medications and Allergies Home Medications Medication Instructions Recorded Confirmed Type atorvastatin 40 mg tablet 40 mg PO DAILY 04/07/21 03/17/22 History cholecalciferol (vitamin D3) 25 25 mcg PO DAILY 04/07/21 03/17/22 History mcg (1,000 unit) capsule losartan 25 mg tablet 50 mg PO DAILY 11/11/21 03/17/22 History ibuprofen 200 mg capsule 400 mg PO DAILY 03/17/22 03/17/22 History Allergies Allergy/AdvReac Type Severity Reaction Status Date / Time Penicillins Allergy Unknown childhood Verified 03/17/22 08:09 rash Sulfa (Sulfonamide Allergy Unknown childhood Verified 03/17/22 08:09 Antibiotics) rash erythromycin base AdvReac Severe stomach Verified 03/17/22 08:09 pain Review of Systems Review of Systems Narrative: Negative Exam Vital Signs (past 8 hours): - 03/17/22 08:18 Temperature 97.1 F L Pulse Rate 64 Respiratory Rate 16 Blood Pressure 129/87 Pulse Oximetry 97 Oxygen Delivery Method Room Air Oxygen Delivery Method Room Air Narrative Exam Narrative: Awake alert and oriented x3, pupils equal round reactive to light, oropharynx clear, heart regular rate and rhythm, lungs clear to auscultation bilaterally, abdomen nontender and nondistended, extremities without edema, no gross neurologic deficits noted Assessment & Plan Assessment & Plan narrative: Change in bowel habits, abdominal pain, abnormal CT for EGD and colonoscopy today Time Spent With Patient Critical Care time: I spent a total of [] minutes of critical care time on this patient's care today; this time is exclusive of procedural time.
--- NOTE | 2022-03-17 09:24 | PM.OP.EGD ---
Operative Date/Time/Diagnoses Date of procedure: 03/17/22 Procedure & Clinicians Study performed: Diagnostic EGD Indications: Abnormal CT thickening of duodenal wall Procedure Notes Procedure in detail: Prior to the procedure, history and physical was performed, and patient medications and allergies were reviewed. Preprocedure nursing history and assessment was reviewed. Patient identification and proposed procedure were verified by the physician and nurse in the procedure room. The physical status of the patient was reassessed after the procedure. After informed consent was obtained including risks, benefits, and alternatives, the scope was passed under direct vision. Throughout the procedure, the patient's blood pressure, pulse, and oxygen saturations were monitored continuously. The upper endoscope was introduced through the mouth and advanced to the 2nd portion of the duodenum. Retroflexion was performed in the stomach. The patient tolerated the procedure well. The entire examined esophagus was normal appearing. Z-line was regular and was located at 43 cm. The entire examined stomach was normal appearing. First and 2nd portions of the duodenum were normal appearing. Impression: Normal-appearing esophagus and regular Z-line Normal appearing stomach Normal appearing 1st and 2nd portions of the duodenum No specimens taken Complications: other (EBL 0. No complications) Post-procedure Plan for aftercare: Proceed with colonoscopy today
--- NOTE | 2022-03-17 09:40 | PM.OP.COLON ---
Operative Date/Time/Diagnoses Date of procedure: 03/17/22 Procedure & Clinicians Study performed: Colonoscopy with snare polypectomy Indications: Abnormal CT thickening of the right colon. History of constipation. Last colonoscopy done in 2015 Procedure Notes Procedure in detail: Prior to the procedure, history and physical was performed, and patient medications and allergies were reviewed. Preprocedure nursing history and assessment was reviewed. Patient identification and proposed procedure were verified by the physician and nurse in the procedure room. The physical status of the patient was reassessed after the procedure. After informed consent was obtained including risks, benefits, and alternatives, the scope was passed under direct vision. Throughout the procedure, the patient's blood pressure, pulse, and oxygen saturations were monitored continuously. The colonoscope was introduced through the anus and advanced to the cecum as identified by the appendiceal orifice and ileocecal valve. The patient tolerated the procedure well. Bowel prep was deemed adequate to detect polyps greater than 5 mm. FREDRICK and perianal examinations were unremarkable. Retroflexion in the rectum revealed grade 1 internal hemorrhoids. Scattered small diverticuli noted in the sigmoid and descending colon. Two sessile polyps measuring 3 and 4 mm in diameter removed from the rectum using a cold snare and were retrieved. An 8 mm pedunculated polyp was removed from the descending colon using a hot snare and was retrieved. No other colonic abnormalities noted. Impression: Internal hemorrhoids Left-sided diverticulosis Three polyps measuring 3-8 mm in diameter removed from the rectum (2) and descending colon Complications: other (EBL minimal. No complications) Post-procedure Plan for aftercare: Follow-up pathology results Repeat colonoscopy at a date to be determined based on pathology results Resume home medications High fiber diet Patient has a contact number available for emergencies. The signs and symptoms of potential delayed complications were discussed with the patient. Return to normal activities tomorrow. Written discharge instructions were provided to the patient. Discharge home with escort
[2022-03-17 09:44] VITALS: BP 111/76; PULSE 60; RESP 12; TEMP 36.4; O2SAT 98
[2022-03-17 09:49] VITALS: BP 115/84; PULSE 62; RESP 17; O2SAT 98
[2022-03-17 09:54] VITALS: BP 124/79; PULSE 59; RESP 18; O2SAT 97
[2022-03-17 09:59] VITALS: BP 132/79; PULSE 52; RESP 16; TEMP 36.4; O2SAT 98
[2022-03-17 10:10] VITALS: BP 124/76; PULSE 55; RESP 14; TEMP 36.2; O2SAT 98
== END 2022-03-17 10:26 | disposition home or self-care (01) ==
PROVIDERS: Family Provider Student in an Organized Health Care Education/Training Program; PCP Family Medicine; Referring Provider Internal Medicine; Visit Provider Internal Medicine
PROC: 0DJ08ZZ Inspection of Upper Intestinal Tract, Via Natural or Artificial Opening Endoscopic (ICD-10-PCS; CPT 43235; principal; 2022-03-17 09:00)
PROC: 0DJD8ZZ Inspection of Lower Intestinal Tract, Via Natural or Artificial Opening Endoscopic (ICD-10-PCS; CPT 45378; 2022-03-17 09:00)
DX: R10.31 Right lower quadrant pain (principal); R93.3 Abnormal findings on diagnostic imaging of other parts of digestive tract; Z86.010 Personal history of colon polyps; K59.00 Constipation, unspecified; K64.0 First degree hemorrhoids; K57.30 Diverticulosis of large intestine without perforation or abscess without bleeding; K62.1 Rectal polyp; D12.4 Benign neoplasm of descending colon
CPT/HCPCS: 43235; 45385; 80053; 85025; 85610; 85730; 86850; 86900; 86901; 99281; J2704; J3010

== ENCOUNTER 2022-03-17 16:17 | Emergency (ER) | payer MEDICARE, BC, SELFPAY ==
[2022-03-17 16:37] VITALS: BP 143/89; PULSE 61; RESP 16; TEMP 36.3; O2SAT 98; BMI 27.9
[2022-03-17 17:10] LABS: Add Manual Diff / Slide Review NO; Basophils Absolute Auto 100 /uL (0-100); Basophils Percent Auto 0.8 % (0-2); Eosinophils Absolute Auto 300 /uL (0-450); Eosinophils Percent Auto 4.2 % (2-4); Hematocrit 41.2 % (41-53); Hemoglobin 14.2 g/dL (13.5-17.5); Lymphocytes Absolute Auto 1700 /uL (1100-4500); Lymphocytes Percent Auto 22.7 % (25-40); Mean Corpuscular HGB Conc 34.5 % (30-36); Mean Corpuscular Hemoglobin 30.6 PG (26-34); Mean Corpuscular Volume 88.7 fL (80-100); Monocytes Absolute Auto 700 /uL (0-900); Monocytes Percent Auto 9.4 % (3-14); Neutrophils Absolute Auto 4600 /uL (1500-7000); Neutrophils Percent Auto 62.9 % (50-75); Platelet Count 215 X10^3/uL (150-400); Red Blood Cell Count 4.64 X10^6/uL (4.5-5.9); Red Cell Distribution Width 13.6 % (11.6-14.8); White Blood Cell Count 7.4 X10^3/uL (4.5-11.0)
[2022-03-17 17:15] LABS: INR 1.2 (0.9-1.3); Prothrombin Time 13.6 SECONDS (10.1-12.7)
[2022-03-17 17:18] LABS: PTT Partial Thromboplastin Tim 35 SECONDS (26-36)
[2022-03-17 17:21] LABS: Alanine Aminotransferase 32 IU/L (<50); Albumin 4.1 g/dL (3.5-5.0); Albumin Globulin Ratio 1.4 (1.0-2.8); Alkaline Phosphatase 67 U/L (38-126); Aspartate Aminotransferase 26 IU/L (17-59); Bilirubin Total 0.5 mg/dL (0.2-1.3); Blood Urea Nitrogen 18 mg/dL (9-20); Calcium 9.3 mg/dL (8.4-10.2); Carbon Dioxide 27 mmol/L (22-32); Chloride 104 mmol/L (98-107); Estimated Glomerular Filt Rate > 60 mL/min (>60); Glucose 89 mg/dL (80-110); HEMOLYSIS < 15 (0-50); Potassium 4.2 mmol/L (3.4-5.1); Sodium 139 mmol/L (137-145); Total Protein 7.1 g/dL (6.3-8.2)
== END 2022-03-17 18:09 | disposition left against medical advice (07) ==
PROVIDERS: Emergency Provider Emergency Medicine; Family Provider Student in an Organized Health Care Education/Training Program; PCP Family Medicine; Referring Provider Internal Medicine
CPT/HCPCS: 80053; 85025; 85610; 85730; 86850; 86900; 86901

== ENCOUNTER → 2022-03-25 07:56 | Outpatient (CLI) | payer MEDICARE, BC, SELFPAY ==
--- NOTE | 2022-03-25 07:57 | DI.MRI.S_ITS ---
PROCEDURE: MR KNEE LT WO CON INDICATIONS: LEFT KNEE PAIN TECHNIQUE: Noncontrast sagittal PD fast spin echo and T2 fast spin echo with fat saturation, sagittal 3-D FLASH with fat saturation; coronal T1 spin echo and PD fast spin echo with fat saturation, and axial PD fast spin echo with fat saturation through the knee. A fiducial marker was placed in the area of clinical interest. COMPARISON: None. FINDINGS: Image quality: Excellent. Menisci: Amorphous high signal intensity within the inner 3rd of the medial meniscal body and posterior horn is present demonstrating superior and inferior articular surface extension, indicating degenerative tearing. Vague transversely oriented high T2 signal intensity traverses the middle and peripheral thirds of the anterior horn medial meniscus, demonstrating superior articular surface extension, indicating horizontal tearing. Lateral meniscus is intact. Cruciate ligaments: The anterior cruciate ligament is markedly attenuated. Posterior cruciate ligament is intact. Medial structures: The medial collateral ligament appears intact. Visualized portions of the pes anserinus tendons appear normal. Small amount of medial bursal fluid. Lateral structures: The lateral collateral ligament, long and short heads of the biceps femoris tendon appear intact. The popliteus tendon appears normal. Iliotibial band appears normal. Anterior structures: The quadriceps and patellar tendons appear intact. Mild T2 signal elevation within the quadriceps and patellar tendons at the patellar insertion sites. Patellar alignment is normal. No femoral trochlear dysplasia or ventral trochlear prominence. No edema in the infrapatellar fat pad. Within the region of clinical interest as denoted by the fiducial marker, there is a ganglion cyst within the right anterior pretibial and subcutaneous soft tissues, which is ill-defined, measuring roughly 30 mm craniocaudal by 10 mm transverse by 18 mm anteroposterior Bones and cartilage: No bone marrow contusions or fractures. Mild degenerative marrow edema and intraosseous ganglion formation within the posterior weight-bearing aspect of the medial tibial plateau. There is moderate tricompartmental periarticular osteophyte formation. Mild articular cartilage loss diffusely overlies the weight-bearing aspects of the medial and lateral compartments. Moderate grade regions of articular cartilage loss overlies the medial and lateral patellar facets. Joint space: There is a small knee joint effusion and a trace Birch's cyst. Normal appearing synovial plicae are incidentally noted. IMPRESSION: 1. High-grade anterior cruciate ligament tear which appears chronic. 2. Degenerative tearing of the free edge of the medial meniscus. 3. Horizontal tearing of the anterior horn medial meniscus associated with adjacent ganglion cyst formation anteriorly in the area of clinical interest. 4. Quadriceps and patellar tendinopathy. 5. Medial bursitis. 6. Tricompartmental osteoarthritis with associated articular cartilage loss. 7. Knee joint effusion and Birch's cyst. Dictated by: Melissa Fuchs M.D. on 03/25/2022 at 10:14 Approved by: Melissa Fuchs M.D. on 03/25/2022 at 10:20
== END ==
PROVIDERS: Family Provider Student in an Organized Health Care Education/Training Program; PCP Family Medicine; Referring Provider Family Medicine; Visit Provider Family Medicine
DX: S83.512A Sprain of anterior cruciate ligament of left knee, initial encounter (principal); S83.242A Other tear of medial meniscus, current injury, left knee, initial encounter; M71.562 Other bursitis, not elsewhere classified, left knee; M17.12 Unilateral primary osteoarthritis, left knee; M25.462 Effusion, left knee; M71.22 Synovial cyst of popliteal space [Baker], left knee; M25.562 Pain in left knee
CPT/HCPCS: 73721

== ENCOUNTER → 2022-12-08 08:27 | Outpatient (CLI) | payer MEDICARE, BC, SELFPAY ==
--- NOTE | 2022-12-08 | DI.CT.S_ITS ---
PROCEDURE: CT ABDOMEN PELVIS W CON INDICATIONS: Right lower quadrant pain TECHNIQUE: After the administration of oral and intravenous contrast, axial sections were acquired from the lung bases to the pubic symphysis. Coronal and sagittal reformats were performed. For radiation dose reduction, the following was used: automated exposure control, adjustment of mA and/or kV according to patient size. COMPARISON:[facility], CT, CT ABDOMEN PELVIS W CON, 10/19/2021, 11:25. FINDINGS: Image quality: Excellent. Lung bases: Unremarkable. Heart: No significant findings. ABDOMEN: Liver: No solid mass. Gallbladder and biliary tree: No gallstones or biliary dilation. Spleen: Normal size. Pancreas: No ductal dilation. Adrenal glands: No adrenal nodules. Kidneys: No hydronephrosis. No solid mass. No complex renal cysts which requires follow-up. Stomach and Bowel: Normal appendix. Colonic diverticulosis without evidence of diverticulitis. Peritoneum: No abnormal intraperitoneal fluid. No free air. Ventral Wall: No hernia. Abdominal Nodes: No retroperitoneal or mesenteric adenopathy by size criteria. Vessels: Aorta and inferior vena cava are normal in size. PELVIS: Pelvic Organs: Prostatomegaly. Bladder: Unremarkable. Pelvic Nodes: No enlarged lymph nodes. Miscellaneous: Trace fat within the inguinal canals. Bones: Grade 1 anterolisthesis of L4 on L5 secondary to facet arthrosis. IMPRESSION: No findings to explain patient's right lower quadrant pain. Normal appendix. No nephrolithiasis. Normal gallbladder. Colonic diverticulosis without evidence of diverticulitis. Prostatomegaly. Dictated by: Dayron Frank M.D. on 12/08/2022 at 10:46 Approved by: Dayron Frank M.D. on 12/08/2022 at 11:02
== END ==
PROVIDERS: Family Provider Student in an Organized Health Care Education/Training Program; PCP Family Medicine; Referring Provider Family Medicine; Visit Provider Family Medicine
DX: K57.90 Diverticulosis of intestine, part unspecified, without perforation or abscess without bleeding (principal); N40.0 Benign prostatic hyperplasia without lower urinary tract symptoms; R10.31 Right lower quadrant pain; G89.29 Other chronic pain
CPT/HCPCS: 74177; Q9967

== ENCOUNTER → 2023-02-14 10:55 | Outpatient (CLI) | payer MEDICARE, BC, SELFPAY ==
--- NOTE | 2023-02-14 | DI.RAD.S_ITS ---
PROCEDURE: XR LUMBAR SPINE 2-3V INDICATIONS: Old myocardial infarction TECHNIQUE: 3 views of the lumbar spine were acquired. COMPARISON: MR, MR LUMBAR SPINE WO CON, 08/20/2020, 9:19. [facility], CT, CT ABDOMEN PELVIS W CON, 12/08/2022, 10:21. FINDINGS: Bones: 5 [id number] vertebrae are present. Note is made of limbus vertebra of L3. There is grade 1 anterolisthesis of L4 on L5. No vertebral body compression fractures. No suspicious bony lesions. Degenerative disc disease, moderate at L1-L2, L2-L3, L4-L5 and L5-S1, mild at L3-L4. Moderate facet arthropathy at L3-L4, L4-L5 and L5-S1. Soft tissues: Overlying bowel gas pattern is normal. Moderate atherosclerotic calcifications. IMPRESSION: 1. Degenerative disc and facet disease in lumbar spine. 2. Grade 1 anterolisthesis of L4 on L5. 3. Limbus vertebra of L3. Dictated by: Fab Martin M.D. on 02/14/2023 at 16:39 Approved by: Fab Martin M.D. on 02/14/2023 at 19:01
== END ==
PROVIDERS: Family Provider Student in an Organized Health Care Education/Training Program; PCP Family Medicine; Referring Provider Family Medicine; Visit Provider Family Medicine
DX: M51.36 Other intervertebral disc degeneration, lumbar region (principal); M47.816 Spondylosis without myelopathy or radiculopathy, lumbar region; M47.817 Spondylosis without myelopathy or radiculopathy, lumbosacral region; M43.16 Spondylolisthesis, lumbar region; I25.2 Old myocardial infarction
CPT/HCPCS: 72100

== ENCOUNTER → 2023-05-12 08:15 | Outpatient (CLI) | payer MEDICARE, SELFPAY ==
[2023-05-12 09:04] LABS: Add Manual Diff / Slide Review NO; Basophils Absolute Auto 100 /uL (0-100); Basophils Percent Auto 1.2 % (0-2); Eosinophils Absolute Auto 100 /uL (0-450); Eosinophils Percent Auto 2.3 % (2-4); Hematocrit 41.7 % (41-53); Hemoglobin 14.3 g/dL (13.5-17.5); Lymphocytes Absolute Auto 1500 /uL (1100-4500); Lymphocytes Percent Auto 30.4 % (25-40); Mean Corpuscular HGB Conc 34.4 % (30-36); Mean Corpuscular Hemoglobin 30.9 PG (26-34); Mean Corpuscular Volume 89.7 fL (80-100); Monocytes Absolute Auto 500 /uL (0-900); Neutrophils Absolute Auto 2700 /uL (1500-7000); Neutrophils Percent Auto 56.1 % (50-75); Platelet Count 217 X10^3/uL (150-400); Red Blood Cell Count 4.65 X10^6/uL (4.5-5.9); Red Cell Distribution Width 13.6 % (11.6-14.8); White Blood Cell Count 4.8 X10^3/uL (4.5-11.0)
[2023-05-12 09:22] LABS: Alanine Aminotransferase 36 IU/L (<50); Albumin 4.3 g/dL (3.5-5.0); Albumin Globulin Ratio 1.4 (1.0-2.8); Alkaline Phosphatase 58 U/L (38-126); Aspartate Aminotransferase 28 IU/L (17-59); BUN Creatinine Ratio 18.7 (6-22); Bilirubin Total 0.9 mg/dL (0.2-1.3); Blood Urea Nitrogen 17 mg/dL (9-20); Calcium 9.5 mg/dL (8.4-10.2); Carbon Dioxide 27 mmol/L (22-32); Chloride 103 mmol/L (98-107); Cholesterol 135 mg/dL (140-199); Estimated Glomerular Filt Rate > 60 mL/min (>60); Globulin 3.1 g/dL (1.7-4.1); Glucose 109 mg/dL (80-110); HDL Cholesterol 30 mg/dL (40-60); HEMOLYSIS < 15 (0-50); LDL Cholesterol Calculated 88 mg/dL (<100); Potassium 5.1 mmol/L (3.4-5.1); Sodium 138 mmol/L (137-145); Total Protein 7.4 g/dL (6.3-8.2); Triglycerides 83 mg/dL (35-150)
[2023-05-12 09:49] LABS: Prostate Specific Antigen Scrn 2.54 ng/mL (0.1-4.0)
[2023-05-12 16:09] LABS: Hemoglobin A1C% w Est Avg Glu 5.5 % (4.0-6.0)
[2023-05-12 16:13] LABS: Hep C Virus Ab w/Reflex Quant NEGATIVE s/c (NEGATIVE)
== END ==
PROVIDERS: PCP Family Medicine; Referring Provider Family Medicine; Visit Provider Family Medicine
DX: Z12.5 Encounter for screening for malignant neoplasm of prostate (principal); I21.9 Acute myocardial infarction, unspecified; Z13.1 Encounter for screening for diabetes mellitus; Z11.59 Encounter for screening for other viral diseases; E78.5 Hyperlipidemia, unspecified
CPT/HCPCS: 36415; 80053; 80061; 83036; 85025; 86803; G0103

== ENCOUNTER → 2023-10-25 15:47 | Outpatient (CLI) | payer MEDICARE, SELFPAY ==
--- NOTE | 2023-10-25 15:49 | DI.RAD.S_ITS ---
PROCEDURE: XR KUB INDICATIONS: evaluate TECHNIQUE: One view of the abdomen acquired. COMPARISON: [facility], CR, XR ACUTE ABDOMEN SERIES, 10/09/2021, 12:23. FINDINGS: Surgical changes and devices: None. Bowel: Bowel gas pattern is normal. Soft tissues: No suspicious abdominal calcifications. Visualized solid organ contours appear normal in size. Bones: No suspicious bony lesions. IMPRESSION: No acute abnormality. Dictated by: Dayron Frank M.D. on 10/25/2023 at 18:42 Approved by: Dayron Frank M.D. on 10/25/2023 at 18:43
== END ==
PROVIDERS: PCP Family Medicine; Referring Provider Family Medicine; Visit Provider Family Medicine
DX: D12.6 Benign neoplasm of colon, unspecified (principal); K58.1 Irritable bowel syndrome with constipation; M54.9 Dorsalgia, unspecified
CPT/HCPCS: 74018

== ENCOUNTER 2024-01-26 20:36 | Emergency (ER) | payer MEDICARE, SELFPAY ==
[2024-01-26] VITALS (11 sets, daily range): BP systolic 101–146; BP diastolic 55–71; PULSE 48–66; RESP 12–26; TEMP 36.4; O2SAT 92–98; BMI 25.9
--- NOTE | 2024-01-26 21:00 | EKG_ITS ---
[place] [address] [place] [id number] Test Date: 2024-01-26 Pat Name: Kirk De La Garza Department: [facility] Room: Gender: Male [employer]: V : 1955 Requested By: Order Number: [id number] Reading MD: Russ Swanson Measurements Intervals [place] Rate: 46 P: 63 WV: 170 QRS: -11 QRSD: 114 T: 0 QT: 490 QTc: 428 Interpretive Statements Sinus bradycardia Electronically Signed On 01-27-2024 9:06:21 PDT by Russ Swanson
--- NOTE | 2024-01-26 21:00 | DI.RAD.S_ITS ---
PROCEDURE: XR CHEST 1V INDICATIONS: chest pain TECHNIQUE: One view of the chest was acquired. COMPARISON: [facility], CR, XR CHEST 1 VIEW, 12/31/2022, 19:28. FINDINGS: Surgical changes and devices: None. Lungs and pleura: Lungs are clear. No pleural effusions or pneumothorax. Mediastinum: Cardiac silhouette is mildly enlarged. Bones and chest wall: No suspicious bony lesions. Overlying soft tissues appear unremarkable. IMPRESSION: Mild cardiomegaly. No acute cardiopulmonary abnormality is seen. Approved by: En Kaufman M.D. on 01/26/2024 at 23:08
--- NOTE | 2024-01-26 21:19 | PC.NURSE ---
Patient arrived to ED by [facility] found down by with cup of vodka nearby. Upon arrival. Patient intoxicated and speaking with one word yeah to all questions. Patient joyful and in good spirits. Unable to assess pain. Left eye with bruising under orbital. Following commands, able to move all extremities. No facial grimace with palpitation to head, neck, and abdomen. , Quin at bedside.
--- NOTE | 2024-01-26 21:20 | ED.GENADULT ---
HPI - General Adult General Chief complaint: Toxicology Problem Stated complaint: Etoh Time Seen by Provider: 01/26/24 21:00 Source: EMS Mode of arrival: EMS History of Present Illness HPI narrative: 68-year-old male with history of coronary artery disease and prior coronary stenting, recent alcohol tonight, found down outside , unwitnessed fall. Unclear if patient had chest pain. He does not usually drink alcohol but had been celebrating with family and friends. No incontinence of urine or stool. No history of seizures known. No focal weakness to face arm or leg known. Related Data Home Medications Medication Instructions Recorded Confirmed cholecalciferol (vitamin D3) 25 25 mcg PO DAILY 04/07/21 01/12/24 mcg (1,000 unit) capsule aspirin 81 mg chewable tablet 81 mg PO DAILY 04/22/23 01/12/24 atorvastatin 40 mg tablet 40 mg PO DAILY 04/22/23 01/12/24 losartan 25 mg tablet 50 mg PO DAILY 04/22/23 01/12/24 metoprolol succinate 25 mg 12.5 mg PO BID 04/22/23 01/12/24 tablet,extended release 24 hr (Toprol XL) omeprazole 20 mg capsule,delayed 20 mg PO BID 04/22/23 01/12/24 release prasugrel 10 mg tablet 10 mg PO DAILY 04/22/23 01/12/24 nitroglycerin 0.4 mg sublingual 0.4 mg sublingual PRN angina 12/07/23 01/12/24 tablet Previous Rx's Medication Instructions Recorded prednisone 20 mg tablet 40 mg (2 x 20 mg) PO DAILY #10 tabs 12/16/23 Allergies Allergy/AdvReac Type Severity Reaction Status Date / Time amoxicillin [From Augmentin] Allergy Intermediate Rash Verified 01/26/24 20:44 clavulanic acid Allergy Intermediate Rash Verified 01/26/24 20:44 [From Augmentin] Penicillins Allergy Unknown childhood Verified 01/26/24 20:44 rash Sulfa (Sulfonamide Allergy Unknown childhood Verified 01/26/24 20:44 Antibiotics) rash erythromycin base AdvReac Severe stomach Verified 01/26/24 20:44 pain Review of Systems Review of Systems Narrative: see HPI Patient History Medical History (Updated 01/27/24 @ 01:15 by Ata Kellogg MD) Tubulovillous adenoma of colon Myocardial infarction due to atherothrombotic coronary artery disease (12/31/22) Obstructive sleep apnea Surgical History (Updated 08/08/23 @ 00:43 by Antwon Rojas MD) History of coronary artery stent placement (12/31/22) History of lumbar laminectomy Family History (Updated 04/22/23 @ 10:47 by Antwon Rojas MD) Father Alzheimer disease CAD (coronary artery disease) S/P CABG x 3 Mother Frontal lobe dementia Pacemaker Social History household members: spouse Smoking Status: Former smoker alcohol intake: former (stopped after OR 12/2022) substance use type: does not use Smoking Status: Former smoker alcohol intake frequency: 0-2 drinks per day Substance Use Type: does not use Exam Narrative Exam Narrative: GENERAL: Well-developed patient, in mild distress. Alcohol on breath HEAD: Atraumatic. Normocephalic. EYES: Pupils equal round and reactive. Extraocular motions intact. No scleral icterus. No injection or drainage. ENT: Nose without bleeding, purulent drainage. Throat without erythema, tonsillar hypertrophy or exudate. Airway patent. NECK: Trachea midline. Non tender CARDIOVASCULAR: Regular rate and rhythm without murmurs, gallops, or rubs. RESPIRATORY: Clear to auscultation. Breath sounds equal bilaterally. No wheezes, rales, or rhonchi. GASTROINTESTINAL: Abdomen soft, non-tender, nondistended. EXTREMITIES: No edema or joint tenderness. BACK: Nontender without deformity or crepitance. No flank tenderness. NEURO: AOx3. Motor functions grossly nonfocal SKIN: No rash or erythema of visible areas Initial Vital Signs Initial Vital Signs: Vital Signs Temperature 97.5 F L 01/26/24 20:41 Pulse Rate 66 01/26/24 20:41 Respiratory Rate 12 01/26/24 20:41 Blood Pressure 131/55 L 01/26/24 20:41 Pulse Oximetry 98 01/26/24 20:41 Oxygen Delivery Method Room Air 01/26/24 20:41 Course Orders Ordered: ED Orders 01/26/24 21:00 XR chest 1V Stat EKG-12 Lead Stat 01/26/24 21:48 Complete Blood Count AUTO DIFF Stat Comprehensive Metabolic Panel Stat Ethanol (ETOH) Stat Lipase Stat Troponin & CK Cardiac Panel Stat 01/26/24 22:03 CT cervical spine wo con Stat CT head/brain wo con Stat 01/26/24 23:40 Troponin I Stat Discontinued Medications Famotidine (Famotidine 20 Mg/2 Ml Vial) 20 mg IV NOW CORIN Last Admin: 01/26/24 21:27 Dose: 20 mg Documented By: [facility] Vital Signs Vital signs: Vital Signs - 8 hr 01/26/24 20:41 01/26/24 21:09 01/26/24 21:30 Temperature 97.5 F L Pulse Rate 66 54 L 50 L Respiratory Rate 12 22 22 Blood Pressure 131/55 L 131/65 Pulse Oximetry 98 96 97 Oxygen Delivery Method Room Air Oxygen Flow Rate 01/26/24 21:48 01/26/24 21:48 01/26/24 22:00 Temperature Pulse Rate 48 L 51 L Respiratory Rate 19 19 Blood Pressure 123/70 Pulse Oximetry 97 97 Oxygen Delivery Method Room Air Oxygen Flow Rate 01/26/24 22:01 01/26/24 22:01 01/26/24 22:27 Temperature Pulse Rate 54 L Respiratory Rate 24 Blood Pressure 139/71 146/64 H Pulse Oximetry 94 Oxygen Delivery Method Oxygen Flow Rate 01/26/24 22:27 01/26/24 22:46 01/26/24 22:46 Temperature Pulse Rate 49 L 57 L Respiratory Rate 15 Blood Pressure 127/65 Pulse Oximetry 96 92 Oxygen Delivery Method Room Air Oxygen Flow Rate 01/26/24 23:00 01/26/24 23:01 01/26/24 23:01 Temperature Pulse Rate 48 L 59 L Respiratory Rate 16 26 H Blood Pressure 101/57 L Pulse Oximetry 95 95 Oxygen Delivery Method Nasal Cannula Oxygen Flow Rate 2 01/26/24 23:30 01/26/24 23:30 01/27/24 00:00 Temperature Pulse Rate 54 L Respiratory Rate 17 Blood Pressure 112/67 116/69 Pulse Oximetry 98 Oxygen Delivery Method Oxygen Flow Rate 01/27/24 00:00 01/27/24 00:30 01/27/24 00:30 Temperature Pulse Rate 51 L 48 L Respiratory Rate 15 14 Blood Pressure 125/72 Pulse Oximetry 99 99 Oxygen Delivery Method Room Air Oxygen Flow Rate Medical Decision Making Lab Data Lab results reviewed: Yes I reviewed the patient's lab results. 01/26/24 21:48 01/26/24 21:48 Labs: Lab Results 01/26/24 01/26/24 Range/Units 21:48 23:40 WBC 6.1 (4.5-11.0) X10^3/uL RBC 4.90 (4.5-5.9) X10^6/uL Hgb 15.5 (13.5-17.5) g/dL Hct 45.3 (41-53) % MCV 92.5 (80-100) fL MCH 31.6 (26-34) PG MCHC 34.1 (30-36) % RDW 13.9 (11.6-14.8) % Plt Count 213 (150-400) X10^3/uL Neut % (Auto) 57.0 (50-75) % Lymph % (Auto) 34.2 (25-40) % Teller % (Auto) 6.2 (3-14) % Eos % (Auto) 1.7 L (2-4) % Baso % (Auto) 0.9 (0-2) % Neut # (Auto) 3500 (0462-7920) /uL Lymph # (Auto) 2100 (0024-1421) /uL Teller # (Auto) 400 (0-900) /uL Eos # (Auto) 100 (0-450) /uL Baso # (Auto) 100 (0-100) /uL Sodium 143 (137-145) mmol/L Potassium 4.1 (3.4-5.1) mmol/L Chloride 108 H (98-107) mmol/L Carbon Dioxide 23 (22-32) mmol/L BUN 12 (9-20) mg/dL Creatinine 0.81 (0.66-1.25) mg/dL Estimated GFR > 60 (>60) mL/min BUN/Creatinine Ratio 14.8 (6-22) Glucose 99 (80-110) mg/dL Calcium 9.3 (8.4-10.2) mg/dL Total Bilirubin 0.5 (0.2-1.3) mg/dL AST 38 (17-59) IU/L ALT 46 (<50) IU/L Alkaline Phosphatase 62 (38-126) U/L Total Creatine Kinase 118 (55-170) U/L Troponin I < 0.012 0.029 (0.01-0.034) ng/mL Total Protein 7.6 (6.3-8.2) g/dL Albumin 4.6 (3.5-5.0) g/dL Globulin 3.0 (1.7-4.1) g/dL Albumin/Globulin Ratio 1.5 (1.0-2.8) Lipase 578 H (23-300) U/L Ethyl Alcohol 266 H ( - 10) mg/dL Urine Dip Bedside Urine Glucose Negative Bedside Urine Bilirubin - Negative Bedside Urine Ketone - Negative Urine Specific Arnold 1.005 Bedside Urine Occult Blood - Negative Bedside Urine pH 6.0 Bedside Urine Protein - Negative Bedside Urine Urobilinogen - Negative Bedside Urine Nitrite - Negative Bedside Urine Leukocytes - Negative Esterase Point of care testing: Urine Dip Bedside Urine Glucose Negative Bedside Urine Bilirubin - Negative Bedside Urine Ketone - Negative Urine Specific Arnold 1.005 Bedside Urine Occult Blood - Negative Bedside Urine pH 6.0 Bedside Urine Protein - Negative Bedside Urine Urobilinogen - Negative Bedside Urine Nitrite - Negative Bedside Urine Leukocytes - Negative Esterase Imaging Data Chest x-ray: Radiologist's Impression: [address] [address] XRay Report Signed Patient: Kirk De La Garza MR#: [id number] : 1955 Acct:[id number] Age/Sex: 68 / M Date of Service: 01/26/24 Loc: ED Accession Number: [id number] Procedure: XR chest 1V Ordering Provider: Ata Kellogg MD PROCEDURE: XR CHEST 1V INDICATIONS: chest pain TECHNIQUE: One view of the chest was acquired. COMPARISON: [facility], , XR CHEST 1 VIEW, 12/31/2022, 19:28. FINDINGS: Surgical changes and devices: None. Lungs and pleura: Lungs are clear. No pleural effusions or pneumothorax. Mediastinum: Cardiac silhouette is mildly enlarged. Bones and chest wall: No suspicious bony lesions. Overlying soft tissues appear unremarkable. IMPRESSION: Mild cardiomegaly. No acute cardiopulmonary abnormality is seen. Approved by: En Kaufman M.D. on 01/26/2024 at 23:08 CT scan - head: Radiologist's Impression: [address] [address] [address] Scan Report Signed Patient: Kirk De La Garza MR#: [id number] : 1955 Acct:[id number] Age/Sex: 68 / M Date of Service: 01/26/24 Loc: ED Accession Number: [id number] Procedure: CT head/brain wo con Ordering Provider: Ata Kellogg MD PROCEDURE: CT HEAD/BRAIN WO CON INDICATIONS: ALOC found down, etoh TECHNIQUE: Noncontrast 4.5 mm thick angled axial sections acquired from the foramen magnum to the vertex, with coronal and sagittal reformats. For radiation dose reduction, the following was used: automated exposure control, adjustment of mA and/or kV according to patient size. COMPARISON: None. FINDINGS: Image quality: Diagnostic. CSF spaces: Basal cisterns are patent. No extra-axial fluid collections. The ventricles are symmetric in size and shape. Brain: Acute intracranial hemorrhage or mass effect. There is cerebral volume loss for age, with resultant ventricular and sulcal prominence. There are periventricular and deep white matter chronic small vessel ischemic changes. There is intracranial internal carotid artery atherosclerosis. Skull and face: Calvarium and visualized facial bones appear intact, without suspicious lesions. Sinuses: Visualized sinuses and mastoids are clear. IMPRESSION: No acute intracranial pathology. Approved by: En Kaufman M.D. on 01/26/2024 at 23:11 CT - cervical spine: Radiologist's Impression: [place] [address] CT Scan Report Signed Patient: Kirk De La Garza MR#: [id number] : 1955 Acct:[id number] Age/Sex: 68 / M Date of Service: 01/26/24 Loc: ED Accession Number: [id number] Procedure: CT cervical spine wo con Ordering Provider: Ata Kellogg MD PROCEDURE: CT CERVICAL SPINE WO CON INDICATIONS: ALOC found down, etoh TECHNIQUE: Noncontrast 3 mm thick sections acquired from the skull base to the T4 level. Sagittal and coronal reformats were then constructed. For radiation dose reduction, the following was used: automated exposure control, adjustment of mA and/or kV according to patient size. COMPARISON: None. FINDINGS: Image quality: Excellent. Bones: No acute fractures or dislocations. The craniocervical junction is not included in the field of view of this exam. Visualized superior ribs are intact. Multilevel disc space narrowing and degenerative endplate changes. Multilevel uncovertebral joint and facet hypertrophy. Soft tissues: Prevertebral soft tissues are normal in thickness. No paravertebral hematomas. No apical pneumothoraces. IMPRESSION: No acute displaced fracture or traumatic subluxation. Multilevel cervical spondylosis. Approved by: En Kaufman M.D. on 01/26/2024 at 23:15 ECG Data Attestation: I personally reviewed and interpreted this ECG as follows: Interpretation: Sinus bradycardia with rate of 46, no obvious ST segment elevation or depression changes. T-wave inversion lead 3 noted. DE 170, QRS 114, QTC 428. MDM Narrative Medical decision making narrative: 68-year-old male with recent alcohol use, does not usually regularly drink, history of CAD, found down outside. Denies current chest discomfort but altered mental status due to alcohol intoxication suspected. Alcohol on breath. CT head pending, CT cervical spine pending. EKG screening shows sinus bradycardia, unclear baseline rate, no obvious ST segment elevation changes. Initial labs pending including troponin. Cardiac monitoring continue for now. Keep NPO for now. CT studies negative. Troponin negative Blood alcohol level 266 Repeat troponin slightly higher but still negative range. No chest pain, now alert, cooperative, clear speech, ambulatory in the emergency department. here to take him home. They would like to be discharged home. Encouraged patient to not drink alcohol. Follow up as an outpatient advised. Discharged home with Discharge Plan Departure Patient Disposition: Home Clinical Impression: Altered mental status, Alcohol intoxication Activity Restrictions/Additional Instructions: Altered mental status and unresponsiveness, in context of alcohol use. Recent celebrate ge alcohol use, not usually drinking alcohol. No fall or trauma known. But exposure to alcohol suspected, alcohol tumbler glasses were empty. Blood alcohol level [address] head and cervical spine imaging negative for trauma or injury or acute changes. Symptoms improved with sobriety and time in the emergency department. No subsequent development of chest or abdominal discomfort. No injury patterns identified. EKG and blood testing not suggestive of heart attack at this time. Patient was able to take oral fluids. Patient was evidently ambulate and speak clearly. Discharged home with family. Encouraged to not drink alcohol. 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 Prescriptions: No Action prednisone 20 mg tablet 40 mg PO DAILY Qty: 10 0RF omeprazole 20 mg capsule,delayed release(DR/EC) 20 mg PO BID prasugrel 10 mg tablet 10 mg PO DAILY nitroglycerin 0.4 mg tablet, sublingual 0.4 mg sublingual PRN (Reason: angina) aspirin 81 mg tablet,chewable 81 mg PO DAILY metoprolol succinate [Toprol XL] 25 mg tablet extended release 24 hr 12.5 mg PO BID cholecalciferol (vitamin D3) 25 mcg (1,000 unit) capsule 25 mcg PO DAILY atorvastatin 40 mg tablet 40 mg PO DAILY losartan 25 mg tablet 50 mg PO DAILY Referrals: Antwon Rojas MD [Primary Care Provider] - Stand Alone Forms: Patient Portal/API
[2024-01-26] MEDS: FAMOTIDINE 20 MG/2 ML VIAL IV (21:27)
[2024-01-26 21:56] LABS: Add Manual Diff / Slide Review NO; Basophils Absolute Auto 100 /uL (0-100); Basophils Percent Auto 0.9 % (0-2); Eosinophils Absolute Auto 100 /uL (0-450); Eosinophils Percent Auto 1.7 % (2-4); Hematocrit 45.3 % (41-53); Hemoglobin 15.5 g/dL (13.5-17.5); Lymphocytes Absolute Auto 2100 /uL (1100-4500); Lymphocytes Percent Auto 34.2 % (25-40); Mean Corpuscular HGB Conc 34.1 % (30-36); Mean Corpuscular Hemoglobin 31.6 PG (26-34); Mean Corpuscular Volume 92.5 fL (80-100); Monocytes Absolute Auto 400 /uL (0-900); Monocytes Percent Auto 6.2 % (3-14); Neutrophils Absolute Auto 3500 /uL (1500-7000); Platelet Count 213 X10^3/uL (150-400); Red Cell Distribution Width 13.9 % (11.6-14.8); White Blood Cell Count 6.1 X10^3/uL (4.5-11.0)
--- NOTE | 2024-01-26 22:03 | DI.CT.S_ITS ---
PROCEDURE: CT CERVICAL SPINE WO CON INDICATIONS: ALOC found down, etoh TECHNIQUE: Noncontrast 3 mm thick sections acquired from the skull base to the T4 level. Sagittal and coronal reformats were then constructed. For radiation dose reduction, the following was used: automated exposure control, adjustment of mA and/or kV according to patient size. COMPARISON: None. FINDINGS: Image quality: Excellent. Bones: No acute fractures or dislocations. The craniocervical junction is not included in the field of view of this exam. Visualized superior ribs are intact. Multilevel disc space narrowing and degenerative endplate changes. Multilevel uncovertebral joint and facet hypertrophy. Soft tissues: Prevertebral soft tissues are normal in thickness. No paravertebral hematomas. No apical pneumothoraces. IMPRESSION: No acute displaced fracture or traumatic subluxation. Multilevel cervical spondylosis. Approved by: En Kaufman M.D. on 01/26/2024 at 23:15
--- NOTE | 2024-01-26 22:03 | DI.CT.S_ITS ---
PROCEDURE: CT HEAD/BRAIN WO CON INDICATIONS: ALOC found down, etoh TECHNIQUE: Noncontrast 4.5 mm thick angled axial sections acquired from the foramen magnum to the vertex, with coronal and sagittal reformats. For radiation dose reduction, the following was used: automated exposure control, adjustment of mA and/or kV according to patient size. COMPARISON: None. FINDINGS: Image quality: Diagnostic. CSF spaces: Basal cisterns are patent. No extra-axial fluid collections. The ventricles are symmetric in size and shape. Brain: Acute intracranial hemorrhage or mass effect. There is cerebral volume loss for age, with resultant ventricular and sulcal prominence. There are periventricular and deep white matter chronic small vessel ischemic changes. There is intracranial internal carotid artery atherosclerosis. Skull and face: Calvarium and visualized facial bones appear intact, without suspicious lesions. Sinuses: Visualized sinuses and mastoids are clear. IMPRESSION: No acute intracranial pathology. Approved by: En Kaufman M.D. on 01/26/2024 at 23:11
[2024-01-26 22:09] LABS: Alanine Aminotransferase 46 IU/L (<50); Albumin 4.6 g/dL (3.5-5.0); Albumin Globulin Ratio 1.5 (1.0-2.8); Alkaline Phosphatase 62 U/L (38-126); Aspartate Aminotransferase 38 IU/L (17-59); Bilirubin Total 0.5 mg/dL (0.2-1.3); Calcium 9.3 mg/dL (8.4-10.2); Carbon Dioxide 23 mmol/L (22-32); Chloride 108 mmol/L (98-107); Creatine Kinase 118 U/L (55-170); Glucose 99 mg/dL (80-110); HEMOLYSIS 20 (0-50); Lipase 578 U/L (23-300); Potassium 4.1 mmol/L (3.4-5.1); Sodium 143 mmol/L (137-145); Total Protein 7.6 g/dL (6.3-8.2)
[2024-01-26 22:15] LABS: BUN Creatinine Ratio 14.8 (6-22); Blood Urea Nitrogen 12 mg/dL (9-20); Estimated Glomerular Filt Rate > 60 mL/min (>60)
[2024-01-26 22:19] LABS: Ethanol (ETOH) 266 mg/dL
[2024-01-26 22:20] LABS: Troponin I < 0.012 ng/mL (0.01-0.034)
[2024-01-27] VITALS: BP 116/69; PULSE 51; RESP 15; O2SAT 99
[2024-01-27 00:11] LABS: Troponin I 0.029 ng/mL (0.01-0.034)
[2024-01-27 00:30] VITALS: BP 125/72; PULSE 48; RESP 14; O2SAT 99
--- NOTE | 2024-01-27 01:06 | PC.NURSE ---
Pt able to stand and pivot for CT exam. Pt ambulated to bathroom with a slightly unsteady gait only SBA. Pt A&Ox3. Still feeling a little cold, but earlier he was found outside on porch drinking vodka.
== END 2024-01-27 01:21 | disposition home or self-care (01) ==
PROVIDERS: Emergency Provider Emergency Medicine; PCP Family Medicine
DX: F10.129 Alcohol abuse with intoxication, unspecified (principal); Y90.8 Blood alcohol level of 240 mg/100 ml or more; R07.9 Chest pain, unspecified; R41.82 Altered mental status, unspecified; R00.1 Bradycardia, unspecified; I51.7 Cardiomegaly; W19.XXXA Unspecified fall, initial encounter; M47.812 Spondylosis without myelopathy or radiculopathy, cervical region
CPT/HCPCS: 36415; 70450; 71045; 72125; 80053; 80320; 81003; 82550; 83690; 84484; 85025; 93005; 96374; 99285

== ENCOUNTER → 2024-06-12 08:16 | Outpatient (CLI) | payer MEDICARE, SELFPAY ==
[2024-06-12 08:46] LABS: Hematocrit 41.5 % (41-53); Hemoglobin 14.3 g/dL (13.5-17.5); Mean Corpuscular HGB Conc 34.6 % (30-36); Mean Corpuscular Hemoglobin 31.3 PG (26-34); Mean Corpuscular Volume 90.6 fL (80-100); Platelet Count 196 X10^3/uL (150-400); Red Blood Cell Count 4.58 X10^6/uL (4.5-5.9); Red Cell Distribution Width 13.5 % (11.6-14.8); White Blood Cell Count 4.4 X10^3/uL (4.5-11.0)
[2024-06-12 09:19] LABS: HEMOLYSIS < 15 (0-50); Iron 111 ug/dL (49-181)
[2024-06-12 09:21] LABS: Alanine Aminotransferase 46 IU/L (<50); Albumin 4.2 g/dL (3.5-5.0); Albumin Globulin Ratio 1.7 (1.0-2.8); Alkaline Phosphatase 53 U/L (38-126); Aspartate Aminotransferase 33 IU/L (17-59); BUN Creatinine Ratio 20.7 (6-22); Bilirubin Total 0.8 mg/dL (0.2-1.3); Blood Urea Nitrogen 19 mg/dL (9-20); Calcium 9.6 mg/dL (8.4-10.2); Carbon Dioxide 28 mmol/L (22-32); Chloride 103 mmol/L (98-107); Cholesterol 147 mg/dL (140-199); Estimated Glomerular Filt Rate > 60 mL/min (>60); Globulin 2.5 g/dL (1.7-4.1); Glucose 105 mg/dL (80-110); HDL Cholesterol 39 mg/dL (40-60); HEMOLYSIS < 15 (0-50); LDL Cholesterol Calculated 92 mg/dL (<100); Potassium 4.3 mmol/L (3.4-5.1); Sodium 135 mmol/L (137-145); Total Protein 6.7 g/dL (6.3-8.2); Triglycerides 78 mg/dL (35-150)
[2024-06-12 09:31] LABS: Percent Iron Saturation 38 % (20-50); Total Iron Binding Capacity 291 ug/dL (261-462); Transferrin 225 mg/dL (206-381)
[2024-06-12 09:49] LABS: TSH w/ Reflex to FT4 2.37 uIU/mL (0.47-4.68)
[2024-06-12 10:52] LABS: Creatinine Urine Random 112.07 mg/dL
[2024-06-12 11:02] LABS: Microalbumin Urine Random < 0.6 mg/dL (0-1.6)
== END ==
PROVIDERS: PCP Family Medicine; Referring Provider Family Medicine; Visit Provider Family Medicine
DX: I10 Essential (primary) hypertension (principal); Z13.0 Encounter for screening for diseases of the blood and blood-forming organs and certain disorders involving the immune mechanism; Z13.29 Encounter for screening for other suspected endocrine disorder; E78.5 Hyperlipidemia, unspecified
CPT/HCPCS: 36415; 80053; 80061; 82043; 82570; 83540; 83550; 84443; 85027

== ENCOUNTER → 2024-06-29 07:44 | Outpatient (CLI) | payer MEDICARE, SELFPAY ==
--- NOTE | 2024-06-29 07:45 | DI.ECHO.S_ITS ---
[facility] : : [address] : [place] : : [id number] : : Phone: [phone] Echocardiogram Report + + :Name: TONY ARAGON Study Date: 06/29/2024 Height: 64 in : :[facility] ReadingLocation: Weight: 165 lb : : Gender: Male BSA: 1.8 m2 : :: 1955 Age: 69 yrs BP: 126/78 mmHg: :Reason For Study: BICUSPID AORTIC VALVE : :Ordering Physician: RICH, : :NAVARRO Performed By: Antwon Boyce : :Referring: NAVARRO NIELSEN : + + Interpretation Summary The left ventricle appears normal in size, wall thickness, and systolic function without any focal wall motion abnormalities. The ejection fraction is estimated to be 55-60%. Diastolic parameters suggest probable normal left ventricular diastolic function and normal filling pressures. The right ventricle is normal in size and function. The right ventricular systolic pressure is estimated to be at least 32 mmHg based on an estimated right atrial pressure of 3 mm Hg. The left atrium is mildly dilated. The aortic valve is bicuspid. The aortic valve opens well. The aortic root is mildly dilated. The ascending aorta is mild-moderately enlarged. Procedure: A two-dimensional transthoracic echocardiogram with color flow and Doppler was performed. The study quality was technically good. Comparison is made with the echocardiogram of 07/22/2023. The patient was in normal sinus rhythm during the exam. Left Ventricle: The left ventricle appears normal in size, wall thickness, and systolic function without any focal wall motion abnormalities. There is no ventricular septal defect visualized. The ejection fraction is estimated to be 55-60%. Diastolic parameters suggest probable normal left ventricular diastolic function and normal filling pressures. Right Ventricle: The right ventricle is normal in size and function. Atria: The left atrium is mildly dilated. The right atrium is mildly dilated. There is no Doppler evidence for an interatrial shunt. Mitral Valve: There is mild mitral annular calcification. The mitral valve leaflets appear normal. There is no evidence of stenosis, fluttering, or prolapse. There is no mitral regurgitation noted. Aortic Valve: The aortic valve is bicuspid. The aortic valve is mildly calcified. The aortic valve opens well. There is no aortic regurgitation. Tricuspid Valve: The tricuspid valve leaflets are thin and pliable. There is mild tricuspid regurgitation. The right ventricular systolic pressure is estimated to be at least 32 mmHg based on an estimated right atrial pressure of 3 mm Hg. Pulmonic Valve: The pulmonic valve is not well seen, but is grossly normal. There is trace pulmonic regurgitation. Great Vessels: The aortic root is mildly dilated. The ascending aorta is mild-moderately enlarged. The pulmonary artery is normal size. The IVC is of normal diameter and collapses greater than 50% with a sniff. This suggests a low right atrial pressure of 3 mm Hg. Pericardium/ Pleura There is no pericardial effusion. There is no pleural effusion. MMode/2D Measurements & Calculations LVIDd: 4.8 cm LVOT diam: 2.4 cm LVIDs: 2.9 cm Ao root diam: 4.5 cm FS: 39.2 % asc Aorta Diam: 4.1 cm EPSS: 0.62 cm Ao Arch Diam (Prox Trans): 2.2 cm IVSd: 1.1 cm LVPWd: 1.0 cm LV uribe. diameter/BSA (cm/m^2): 2.6 LV sys. diameter/BSA (cm/m^2): 1.6 LA A2 area: 20.5 cm2 RA long axis: 4.7 cm LA A4 area: 17.9 cm2 RA area: 19.2 cm2 LA length (vol): 5.4 cm RA vol: 66.3 ml LA vol: 57.7 ml RA : 36.8 ml/m2 LA vol index: 32.0 ml/m2 IVC diam: 1.5 cm RVD1 (basal): 3.8 cm RVD2 (mid): 3.1 cm TAPSE: 3.0 cm Doppler Measurements & Calculations Ao V2 max: 139.1 cm/sec LVOT Max Kofi: 68.3 cm/sec Ao V2 mean: 101.9 cm/sec LV V1 max P.9 mmHg Ao max P.7 mmHg LV V1 VTI: 18.8 cm Ao mean P.5 mmHg MAVERICK(I,D): 2.6 cm2 Ao V2 VTI: 33.0 cm MAVERICK(V,D): 2.2 cm2 sev ratio: 0.57 MAVERICK indexed to BSA (cm^2/m^2): 1.4 MV E max kofi: 49.4 cm/sec TR max kofi: 270.2 cm/sec MV A max kofi: 34.9 cm/sec TR max P.2 mmHg MV E/A: 1.4 PA V2 max: 60.8 cm/sec Med Peak E' Kofi: 7.1 cm/sec PA V2 mean: 43.1 cm/sec E/E' med: 6.9 PA mean P.83 mmHg Lat Peak E' Kofi: 11.9 cm/sec PA pr(Accel): 7.1 mmHg E/E' lat: 4.2 E/e' average: 5.6 MV dec time: 0.29 sec SV(LVOT): 84.9 ml Reading Physician:10:14 AM
== END ==
PROVIDERS: PCP Family Medicine; Referring Provider Internal Medicine Cardiovascular Disease; Visit Provider Internal Medicine Cardiovascular Disease
DX: Q23.81 Bicuspid aortic valve (principal); I77.89 Other specified disorders of arteries and arterioles; I08.1 Rheumatic disorders of both mitral and tricuspid valves; I77.810 Thoracic aortic ectasia; I25.10 Atherosclerotic heart disease of native coronary artery without angina pectoris
CPT/HCPCS: 93306

== ENCOUNTER 2025-03-14 09:25 | Day surgery (SDC) | payer MEDICARE, SELFPAY ==
[2025-03-08 12:19] VITALS: BMI 28.1
--- NOTE | 2025-03-14 | PATH_ITS ---
[facility] Accession Number: [id number] No. of containers..02 Tissue . 01 Material submitted: . PART A: colon - COLON, POLYP AT 25 PART B: colon - COLON, POLYP AT 20 . 01 Diagnosis: Part A: COLON, POLYP AT 25: Hyperplastic polyp. . Part B: COLON, POLYP AT 20: Hyperplastic polyp. [facility] 03/20/2025 1336 Local . 01 Electronically signed: . Frank Borja MD, Pathologist NPI- [id number] . 01 Gross description: . A. Received in formalin with two identifiers and polyp at 25, is a single pate soft tissue fragment 0.2 cm in greatest dimension. Submitted entirely in cassette A1. . B. Received in formalin with two identifiers and polyp at 20, is a single pate soft tissue fragment 0.3 cm in greatest dimension. Submitted entirely in cassette B1. ([id number]) /[facility] 03/20/2025 1336 Local . 01 Pathologist provided ICD-10: K63.5 . 01 CPT . 443270, [id number] Performed at: [address] [id number] MD Frank Borja MD Phone: [phone]
--- NOTE | 2025-03-14 06:43 | PM.HP.IH.1 ---
History of Present Illness History of Present Illness Date Patient Seen: 03/14/25 Chief complaint: Colonoscopy Narrative: 70yo M, h/o tubulovillous adenoma. Presents for colonoscopy today. [facility] Medical History (Updated 03/14/25 @ 06:43 by Delvis August MD) Chronic back pain Colon polyps Diverticular disease HTN (hypertension) Heart attack (12/26/22) Tubulovillous adenoma of colon Myocardial infarction due to atherothrombotic coronary artery disease (12/31/22) Obstructive sleep apnea Surgical History (Updated 03/08/25 @ 13:08 by Brooke Manzo RN) Status post osteotomy (02/1989) History of carpal tunnel release of both wrists (2013) History of surgery on lower extremity (08/1986) [place] teeth removed (04/04/69) History of coronary artery stent placement (12/31/22) History of lumbar laminectomy (12/2020) Family History (Updated 04/22/23 @ 10:47 by Antwon Rojas MD) Father Alzheimer disease CAD (coronary artery disease) S/P CABG x 3 Mother Frontal lobe dementia Pacemaker Social History (Updated 05/31/24 @ 08:55 by Tamiko Foreman CMA) marital status: household members: spouse lives independently: Yes caregiver/support person: No pets and animals: Yes occupational status: other current occupational exposures/hazards: No special robin needs: No travel history: over 6 months ago leisure activities: sports, music and fishing seatbelt use: always water heater temp set < 120 deg: Yes working smoke detector in home: Yes fire extinguisher in home: Yes carbon monox detector in home: Yes firearms in home: No do you feel safe at home: Yes Smoking Status: Former smoker Tobacco: How many years used: 10 second hand exposure: No alcohol intake: former substance use type: does not use during the past year weight has: remained stable well-balanced diet: daily or most days daily servings fruits/ve-4 caffeine: Yes eating out: rarely or never Type(s) of exercise: walking, aerobic, regular exercise and additional frequency: 3-4 times per week Meds Home Medications and Allergies Home Medications ?Medication ?Instructions ?Recorded ?Confirmed ?Type cholecalciferol (vitamin D3) 25 25 mcg PO DAILY 04/07/21 01/10/25 History mcg (1,000 unit) capsule aspirin 81 mg chewable tablet 81 mg PO DAILY 04/22/23 01/10/25 History atorvastatin 40 mg tablet 40 mg PO DAILY 04/22/23 01/10/25 History losartan 25 mg tablet 50 mg PO DAILY 04/22/23 01/10/25 History metoprolol succinate 25 mg 12.5 mg PO BID 04/22/23 01/10/25 History tablet,extended release 24 hr (Toprol XL) nitroglycerin 0.4 mg sublingual 0.4 mg sublingual PRN angina 12/07/23 01/10/25 History tablet sodium,potassium,mag sulfates 17.5 See Rx Instructions PO .COMPLEX 01/29/25 Rx gram-3.13 gram-1.6 gram oral soln #354 mL (Suprep Bowel Prep Kit) omeprazole 20 mg capsule,delayed 20 mg PO BID #180 caps 01/31/25 Rx release bupropion HCl 150 mg 24 hr tablet, 150 mg PO QAM #90 tabs 02/21/25 Rx extended release (Wellbutrin XL) Allergies Allergy/AdvReac Type Severity Reaction Status Date / Time amoxicillin (From Augmentin) Allergy Intermediate Rash Verified 01/23/25 07:54 clavulanic acid (From Allergy Intermediate Rash Verified 01/23/25 07:54 Augmentin) Penicillins Allergy Unknown childhood Verified 01/23/25 07:54 rash Sulfa (Sulfonamide Allergy Unknown childhood Verified 01/23/25 07:54 Antibiotics) rash erythromycin base AdvReac Severe stomach Verified 01/23/25 07:54 pain Exam Narrative Exam Narrative: Const General: healthy appearing, comfortable and no acute distress Orientation: alert and oriented x3 HENMT Ears: hearing grossly normal bilaterally Eyes Visual Pond: normal visual pond by confrontation Conjunctivae: conjunctivae normal Sclera: sclerae normal EOM: EOM intact bilaterally Resp Effort & Inspection: normal respiratory effort and able to speak in complete sentences Cardio Rate: regular rate GI Palpation: soft (NT) Extrem General: no pedal edema and no calf tenderness Assessment & Plan Assessment and plan (1) Change in bowel habits: Status: Acute (2) Encounter for screening colonoscopy: Status: Acute Plan Plan colonoscopy, possible biopsy. The risks, benefits and options regarding the procedure were explained to the patient in detail. Risk discussion included but not limited to: bleeding, perforation, unable to reach cecum, missed lesion. The patient was encouraged to ask questions and they were answered to their satisfaction. The patient understands and is agreeable to proceed. Time-Based Coding :: [TOTAL MINUTES] spent with patient and on the chart (including review of chart, obtaining history, exam, reviewing outside data, placing orders, documenting exam and treatment plan, and counseling patient) on [DATE]. [employer] Supervisor Document charge(s): Yes Charge Codes Inpatient/observation care including admit and discharge same day: [id number]
[2025-03-14 10:03] VITALS: BP 153/86; PULSE 54; RESP 17; TEMP 36.2; O2SAT 98
[2025-03-14] MEDS: LACTATED RINGERS 1,000 ML 42 ML IV (10:31)
--- NOTE | 2025-03-14 11:12 | PM.OP.COLON ---
Operative Date/Time/Diagnoses Date of procedure: 03/14/25 Time of procedure: 11:33 Pre-op diagnosis: Colon screening Post-op diagnosis: same Procedure & Clinicians Study performed: Colonoscopy with polypectomy Same procedure(s) as scheduled: Yes Indications: 70yo M, h/o colon polyps Surgeon: Delvis August Anesthesia Type: MAC +/- Procedure Notes SCOAP/Timeout: Performed Procedure in detail: Colonoscopy Patient placed in left lateral recumbent position. Time out was performed. Procedural sedation was administered by anesthesia. Examination began with a thorough inspection of the perianal area. There was no evidence of fissures, fistulae, external hemorrhoids or cutaneous malignancy. The colonoscope was then placed into the rectum and the lumen was insufflated with carbon dioxide. The scope was carefully advanced forward. Ultimately the cecum was intubated and confirmed by identification of the ileocecal valve, the appendiceal orifice and the confluence of the taenia. The scope was then slowly withdrawn examining the colon thoroughly in all directions. In the rectum, retroflexion of the scope was performed for inspection of the distal rectum and anal canal. ?Significant colonoscopy findings: ?1. Quality of the preparation-good, [place] 2-3, improved with irrigation/suction ?2. Two polyps, 3mm, sessile, benign appearing, both removed with cold snare and retrieved for pathology; both in sigmoid colon, one at 20cm, one at 25cm Scope withdrawal time: 8 minutes Findings: polyp(s) Specimen(s): other (polyps) Estimated Blood Loss: 5 Complications: none Impression: Colon polyps Post-procedure Plan for aftercare: PACU then home Follow up: as needed Disposition: PACU
[2025-03-14 11:32] VITALS: BP 106/58; PULSE 53; RESP 14; TEMP 36.1; O2SAT 94
[2025-03-14 11:37] VITALS: BP 109/60; PULSE 52; RESP 14; TEMP 36.1; O2SAT 94
[2025-03-14 11:42] VITALS: BP 119/66; PULSE 61; RESP 16; TEMP 36.2; O2SAT 96
[2025-03-14 11:45] VITALS: BP 142/85; PULSE 55; RESP 18; TEMP 36.2; O2SAT 97
== END 2025-03-14 11:55 | disposition home or self-care (01) ==
PROVIDERS: PCP Family Medicine; Referring Provider Family Medicine; Visit Provider Surgery
PROC: 0DJD8ZZ Inspection of Lower Intestinal Tract, Via Natural or Artificial Opening Endoscopic (ICD-10-PCS; CPT 45378; principal; 2025-03-14 10:30)
DX: Z12.11 Encounter for screening for malignant neoplasm of colon (principal); Z86.0101 Personal history of adenomatous and serrated colon polyps; K63.5 Polyp of colon
CPT/HCPCS: 45385; J7120